=== PATIENT | male | born 1955 | race African-American/Black ===

== ENCOUNTER → 2016-06-16 | Outpatient (CLI) | payer OTHER ==
[2016-01-11 11:07] VITALS: BP 125/65
[~2016-06-16] MED LIST: ALLO300T PO; AMLO10TA2 PO; AMLO5TAB2 PO; AMOX1TAB61 PO; ATOR20TA58 PO; BYSTOLIC10 MG PO; ERTA1VIA IJ; LOSA1TAB17 PO; MELO-150 PO; MULT-208 PO; PHEN37.53 PO
== END | disposition home or self-care (01) ==
LOC: LAB 14:07
PROVIDERS: ATTEND Urology
DX: C61 Malignant neoplasm of prostate (principal)
CPT/HCPCS: 36415; 84153; G0103

== ENCOUNTER → 2016-08-04 | Outpatient (CLI) | payer OTHER ==
[2016-01-11 11:07] VITALS: BP 125/65
[~2016-08-04] MED LIST changes: +GADOBUTROL 7.5 MMOL/7.5 ML VIAL IV ONE
--- NOTE | 2016-08-04 10:34 | KCIC ---
PROCEDURE Pelvis MRI with and without contrast. HISTORY Prostate cancer status post prostatectomy. TECHNIQUE Multiplanar and multi sequence magnetic resonance imaging of the pelvis was performed prior to and following the intravenous administration of 14 cc Gadavist intravenous contrast. COMPARISON CT dated 03/21/2016 and bone scan dated 03/24/2016. FINDINGS The exam is limited due to metallic artifact from lower lumbar spinal fusion instrumentation. The lumbar spine is not formally assessed on this exam. However, there is visualization of transpedicular screws and interbody fusion devices with laminectomy decompression at L4 through S1. There is suspected grade 1 anterolisthesis of L5 on S1. The prostate is surgically absent, with associated susceptibility effect within the prostatectomy bed. No recurrent mass is seen. There is a 2.7 cm T2 hyperintense defect within the right iliac bone, likely due to a bone graft harvest site. There is minimal osteoarthritis involving both hips. The visualized lower abdominal and pelvic visceral and vascular structures are unremarkable. There is slight increased fat within the right inguinal canal without a significant hernia. There is a 1.8 cm fat signal lesion within the right gluteus muscle, likely a small lipoma. There are prominent inguinal lymph nodes, the largest of which is seen on the right measuring 4.0 cm in long axis. The largest inguinal lymph nodes demonstrate cortical thickening without fatty bob. IMPRESSION 1. Findings consistent with prostatectomy. No recurrent lesion is seen within the prostatectomy bed. However, the exam is significantly limited due to metallic artifact from lower lumbar spinal fusion instrumentation. 2. Enlarged right greater than left inguinal lymph nodes with thickened cortices and absent fatty bob, the largest of which measures 4.0 cm in long axis within the right inguinal region. These are stable to minimally increased compared to the prior CT dated 01/20/2016. These may be reactive in etiology. However, a neoplastic etiology is not completely excluded. 3. Lower lumbar spinal fusion instrumentation and degenerative change, incompletely evaluated on the current exam. 4. Small defect within the right iliac bone likely due to a bone graft harvest site. There is no convincing evidence of osseous metastatic disease. Electronically signed by: Leatha Suarez (Aug 04, 2016 10:33:08)
== END | disposition home or self-care (01) ==
LOC: KCIC MRI 08:25
PROVIDERS: ATTEND Physician Assistant
DX: C61 Malignant neoplasm of prostate (principal)
CPT/HCPCS: 72197; A9585

== ENCOUNTER → 2016-10-19 | Outpatient (CLI) | payer OTHER ==
[2016-01-11 11:07] VITALS: BP 125/65
[~2016-10-19] MED LIST changes: -GADOBUTROL 7.5 MMOL/7.5 ML VIAL IV ONE; -MELO-150 PO; +MELO15TA23 PO
== END | disposition home or self-care (01) ==
LOC: LAB 09:48
PROVIDERS: ATTEND Urology
DX: Z12.5 Encounter for screening for malignant neoplasm of prostate (principal); C61 Malignant neoplasm of prostate
CPT/HCPCS: 36415; G0103

== ENCOUNTER 2016-10-24 11:55 | Emergency (ER) | payer OTHER ==
[~2016-10-24] VITALS: Ht 182.9 cm; Wt 150.6 kg
[2016-10-24] MEDS ORDERED: IV NORMAL SALINE 1000ML BAG 1,000 ML IV SCH (12:18)
[2016-10-24] MEDS ORDERED: 0.9 % SODIUM CHLORIDE 10 ML DISP.SYRIN. IV PRN (12:30)
[2016-10-24] MEDS ORDERED: ASPIRIN CHEWABLE 81 MG TABLET. PO ONE (12:30)
--- NOTE | 2016-10-24 12:31 | PHYS DOC ---
Past Medical History Past Medical History: Cancer (neck cancer), Hypertension Additional Past Medical Histor: prostate cancer Past Surgical History: Other Additional Past Surgical Histo: R knee scope lumbar spinal fusion, multiple arthroscopic knee surgeries, ri Alcohol Use: Occasionally Drug Use: None Adult General Chief Complaint Chief Complaint: CHEST PAIN HPI HPI Patient is a pleasant 61-year-old male with a history of prostate cancer in the sixth week of his radiation therapy out of 8 weeks who presents with progressive shortness of breath, intermittent chest pain and for full edema that has been getting progressively worse over the last 7-10 days. Patient admits that he's had a transition between physicians and taken off all his medications secondary to insurance changes. Since that time he's put on a great deal of weight, peripheral edema, with associated increased shortness of breath with exertion. That is becoming more frequent. The chest pain she described over the left chest specifically over the left chest wall described as palpitations with pressure. They last anywhere from 3-5 minutes they do not radiate to his neck back shoulder. He has noted mild dizziness with his symptoms. He denies any nausea, vomiting, URI symptoms, cough, risks, chills, decreased urinary output, recent travel outside the country, or recent anabiotic use. Patient has never had these symptoms before the last 2 weeks. He describes some distention of his abdomen as well as peripheral edema in his lower and upper extremities. He notes that this all began after the cessation of his medications. Differential diagnosis for chest pain: Pericarditis, myocarditis, endocarditis, pneumothorax, pneumonia, aortic dissection, esophageal spasm, esophagitis, peptic ulcer disease, acute coronary syndrome, mediastinitis, Boerhaave syndrome , musculoskeletal chest wall pain, costochondritis, intercostal strain, rib fracture, pulmonary contusion, pneumonitis, pleural effusion, pericardial effusion, pericardial tamponode, and pleurisy. Was considered upon arrival My differential diagnosis for peripheral edema included but not limited to the following. Renal sodium retention, nephrotic syndrome, idiopathic edema secondary to volume to patient, drug-induced edema concerning vasodilators, NSAIDs, venous insufficiency or thromboembolism, pitting edema from lymphatic obstruction or hypothyroidism, ascites associated with abdominal distention, central venous pressure increases secondary to cirrhosis, congestive heart failure, or pericardial heart disease. Review of Systems Review of Systems Constitutional: Denies fever or chills [] Eyes: Denies change in visual acuity, redness, or eye pain [] HENT: Denies nasal congestion or sore throat [] Respiratory: Denies cough or is patient did complain of shortness of breath with exertion. Cardiovascular: No additional information not addressed in HPI [] GI: Denies abdominal pain, nausea, vomiting, bloody stools or diarrhea [] : Denies dysuria or hematuria [] Musculoskeletal: Denies back pain or joint pain [] Integument: Denies rash or skin lesions [] Neurologic: Denies headache, focal weakness or sensory changes he describes generalized weakness. Endocrine: Denies polyuria or polydipsia [] Current Medications Current Medications Current Medications Medications (Trade) Dose Ordered Sig/Dominic Start Time Stop Time Status Last Admin Dose Admin Aspirin (Children'S Aspirin) 324 mg 1X ONCE 10/24/16 12:30 10/24/16 12:31 DC 10/24/16 12:45 324 MG Info (Do NOT chart on this entry -- for MONITORING) 1 each PRN DAILY PRN 10/24/16 13:45 10/26/16 13:44 Iohexol (Omnipaque 300 Mg/ml) 75 ml 1X ONCE 10/24/16 13:30 10/24/16 13:31 DC 10/24/16 13:59 75 ML Sodium Chloride (Normal Saline Flush) 10 ml QSHIFT PRN 10/24/16 12:30 10/24/16 12:45 10 ML Allergies Allergies Allergies Coded Allergies Type Severity Reaction Last Updated Verified morphine Adverse Reaction Intermediate HALLUCINATIONS 01/06/16 Yes Physical Exam Physical Exam Constitutional: Well developed, well nourished, no acute distress, patient is fairly obese with some edema noted periorbitally HENT: Normocephalic, atraumatic, bilateral external ears normal, oropharynx moist, no oral exudates, nose normal. [] Eyes: PERRLA, EOMI, conjunctiva normal, no discharge. [] Neck: Normal range of motion, no tenderness, supple, no stridor. [] Cardiovascular:Heart rate regular rhythm, no murmur [] Lungs & Thorax: Bilateral breath sounds clear to auscultation [] she does have chest wall pain is mildly reproducible on exam of the upper left chest. There is no obvious crepitus or change in breath sounds Abdomen: Bowel sounds normal, soft, no tenderness, no masses, no pulsatile masses. His abdomen is distended but nontympanitic. Skin: Warm, dry, no erythema, no rash. [] Back: No tenderness, no CVA tenderness. [] Extremities: No tenderness, no cyanosis, no clubbing, ROM intact, or significant pitting edema noted in the lower extremity's up to the midthigh. Neurologic: Alert and oriented X 3, normal motor function, normal sensory function, no focal deficits noted. [] Psychologic: Affect normal, judgement normal, mood normal. [] Current Patient Data Vital Signs Vital Signs Date Time Temp Pulse Resp B/P (MAP) Pulse Ox O2 Delivery O2 Flow Rate FiO2 10/24/16 12:30 98.5 80 16 155/92 (113) 96 Room Air 98.5 Lab Values Laboratory Tests Test 10/24/16 12:30 White Blood Count 6.5 x10^3/uL (4.0-11.0) Red Blood Count 3.69 x10^6/uL (4.30-5.70) L Hemoglobin 12.4 g/dL (13.0-17.5) L Hematocrit 36.4 % (39.0-53.0) L Mean Corpuscular Volume 99 fL (79-100) Mean Corpuscular Hemoglobin 34 pg (25-35) Mean Corpuscular Hemoglobin Concent 34 g/dL (31-37) Red Cell Distribution Width 15.2 % (11.5-14.5) H Platelet Count 224 x10^3/uL (140-400) Neutrophils (%) (Auto) 68 % (31-73) Lymphocytes (%) (Auto) 19 % (24-48) L Monocytes (%) (Auto) 10 % (0-9) H Eosinophils (%) (Auto) 2 % (0-3) Basophils (%) (Auto) 1 % (0-3) Neutrophils # (Auto) 4.4 x10^3uL (1.8-7.7) Lymphocytes # (Auto) 1.2 x10^3/uL (1.0-4.8) Monocytes # (Auto) 0.7 x10^3/uL (0.0-1.1) Eosinophils # (Auto) 0.1 x10^3/uL (0.0-0.7) Basophils # (Auto) 0.1 x10^3/uL (0.0-0.2) D-Dimer (Bruna) 1.18 ug/mlFEU (0.00-0.50) H Sodium Level 141 mmol/L (136-145) Potassium Level 3.9 mmol/L (3.5-5.1) Chloride Level 105 mmol/L (98-107) Carbon Dioxide Level 27 mmol/L (21-32) Anion Gap 9 (6-14) Blood Urea Nitrogen 15 mg/dL (8-26) Creatinine 1.1 mg/dL (0.7-1.3) Estimated GFR (Cockcroft-Gault) 82.9 Glucose Level 130 mg/dL (70-99) H Calcium Level 8.7 mg/dL (8.5-10.1) Magnesium Level 1.7 mg/dL (1.8-2.4) L Total Bilirubin 0.4 mg/dL (0.2-1.0) Direct Bilirubin 0.1 mg/dL (0.0-0.2) Aspartate Amino Transferase (AST) 20 U/L (15-37) Alanine Aminotransferase (ALT) 33 U/L (16-63) Alkaline Phosphatase 91 U/L (46-116) Creatine Kinase 287 U/L (39-308) Creatine Kinase MB (Mass) 3.5 ng/mL (0.0-3.6) Creatine Kinase MB Relative Index 1.2 % (0-4) Troponin I Quantitative < 0.017 ng/mL (0.000-0.055) HS-Vqx-Z-Type Natriuretic Peptide 153 pg/mL (0-124) H Total Protein 6.4 g/dL (6.4-8.2) Albumin 3.5 g/dL (3.4-5.0) Lipase 198 U/L (73-393) Thyroid Stimulating Hormone (TSH) 0.981 uIU/mL (0.358-3.74) Laboratory Tests 10/24/16 12:30 Laboratory Tests 10/24/16 12:30 EKG EKG [] EKG timed 12:02 PM 10/24/[address] Haro demonstrates heart rate of 83 normal sinus rhythm with a normal NC interval of 154 QRS normal 88 QTC normal at [address] segment or T-wave changes consistent with acute cardiac ischemia. Patient has a nonpathologic Q-wave in lead 3 Radiology/Procedures Radiology/Procedures [] IMAGING REPORT Signed PATIENT: MIO CAMPOVERDE ACCOUNT: [id number] : 1955 LOCATION: ER AGE: 61 SEX: M EXAM STATUS: REG ER ORD. PHYSICIAN: MAXIM HARO MD REASON: chest pain,18 PROCEDURE: PORTABLE CHEST 1V Indication chest pain. A single view of the chest was obtained and is compared to an examination 01/24/2010. The heart and pulmonary vessels appear normal. The lungs are clear. No acute parenchymal infiltrate is seen. Significant pleural fluid is not present. There is no pneumothorax. Bony structures appear grossly intact. IMPRESSION: No acute or focal process is seen in the chest DICTATED and SIGNED BY: USHA HARRIS MD DATE: 10/24/16 1314 CC: MAXIM HARO MD; GERARDO KINSEY [address] [address] IMAGING REPORT Signed PATIENT: MIO CAMPOVERDE ACCOUNT: [id number] : 1955 LOCATION: ER AGE: 61 SEX: M EXAM STATUS: REG ER ORD. PHYSICIAN: MAXIM HARO MD REASON: PE protocol, intermittent chest pain x 1 week PROCEDURE: CT ANGIOGRAPHY CHEST INDICATION: Chest pain COMPARISON: 01/23/2010 TECHNIQUE: Axial CT images obtained through the chest. Intravenous contrast was utilized and three-dimensional images were processed per angiogram protocol. FINDINGS: No evidence of pneumothorax. Questionable small lesion at anterior aspect of left kidney partially visualized. Thoracic aorta is not aneurysmal. A descending thoracic aorta partially obscured by motion. Scattered mildly prominent lymph nodes within the mediastinum. Degenerative changes of the spine with osteophyte formation. No central pulmonary embolus IMPRESSION: 1. No central pulmonary embolus or definite evidence of pneumonia. 2. Questionable lesion at the anterior aspect of the left kidney partially seen. This could be artifactual in nature but nonemergent focused ultrasound could better evaluate PQRS Compliance Statement: One or more of the following individualized dose reduction techniques were utilized for this examination: 1. Automated exposure control 2. Adjustment of the mA and/or kV according to patient size 3. Use of iterative reconstruction technique DICTATED and SIGNED BY: NELSON KRUGER MD DATE: 10/24/16 2112 CC: MAXIM HARO MD; GERARDO KINSEY ~ Course & Med Decision Making Course & Med Decision Making Pertinent Labs and Imaging studies reviewed. (See chart for details) I reviewed patient's nursing notes, vital signs and history and physical and I need to dilate the origin of this patient's shortness of breath as well as his peripheral edema. He over appropriate cardiac and renal workup. Patient tells me that their symptoms given during CC are improved. We reviewed labs and radiology reports with patient and any family at bedside. At this point patient has elevated d-dimer and require a CT angios the chest to rule out PE. 2 PM Patient tells me that their symptoms given during CC are improved. We reviewed labs and radiology reports with patient and any family at bedside. CT scan of the chest returned at 2:45 PM demonstrates no PE. There is a questionable lesion on the adrenal gland and will need to be followed up and may also be an artifact of this CAT scan. His troponin is negative, his BNP is negative, his CMP is within normal limits. Patient has no evidence of renal failure My differential diagnosis for peripheral edema included but not limited to the following. Renal sodium retention, nephrotic syndrome, idiopathic edema secondary to volume to patient, drug-induced edema concerning vasodilators, NSAIDs, venous insufficiency or thromboembolism, pitting edema from lymphatic obstruction or hypothyroidism, ascites associated with abdominal distention, central venous pressure increases secondary to cirrhosis, congestive heart failure, or pericardial heart disease. Was considered upon arrival and there is no evidence of these events with the exception of possibly medication reaction. Given the fact that this patient is presently on Lasix or another diuretic and he is not on his medications may be concerning to his increased peripheral edema. 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 Dragon Disclaimer Dragon Disclaimer This electronic medical record was generated, in whole or in part, using a voice recognition dictation system. Departure Departure Impression: Primary Impression: Dyspnea Additional Impressions: Peripheral edema Medication side effects Disposition: HOME, SELF-CARE Condition: IMPROVED Referrals: GERARDO KINSEY (PCP) Patient Instructions: Peripheral Edema, Shortness of Breath Additional Instructions: There is no evidence of heart injury today but this does not mean there is no heart disease that could possibly cause damage in the future. I would advise a follow-up your primary care doctor for cardiology for continued management of your blood pressure issues and repeat in the stating your medications to treat your symptoms. Please return for any new or increasing symptoms or given any question concerns. Problem Qualifiers MAXIM HARO MD Oct 24, 2016 12:31
--- NOTE | 2016-10-24 12:32 | EKG ---
[facility] [address] [place] [address] Test Date: 2016-10-24 Test Time: 12:02:20 Pat Name: MIO CAMPOVERDE Department: Room: Gender: M Pharmacists: : 1955 Requested By: MAXIM HARO Order Number: [id number] Reading MD: Measurements Intervals [place] Rate: 83 P: 47 TX: 154 QRS: 19 QRSD: 88 T: 37 QT: 368 QTc: 438 Interpretive Statements SINUS RHYTHM QRS(T) CONTOUR ABNORMALITY CONSIDER ANTEROLATERAL MYOCARDIAL DAMAGE RI6.01 Unconfirmed report No previous ECG available for comparison
[2016-10-24 12:59] LABS: BASO # 0.1 x10^3/uL (0.0-0.2); BASO % 1 % (0-3); EOS % 2 % (0-3); HEMATOCRIT 36.4 % (39.0-53.0); HEMOGLOBIN 12.4 g/dL (13.0-17.5); LYMPH # 1.2 x10^3/uL (1.0-4.8); LYMPH % 19 % (24-48); MEAN CORPUSCULAR HEMOGLOBIN 34 pg (25-35); MEAN CORPUSCULAR HGB CONC 34 g/dL (31-37); MEAN CORPUSCULAR VOLUME 99 fL (79-100); MONO % 10 % (0-9); NEUT % 68 % (31-73); PLATELET COUNT 224 x10^3/uL (140-400); RED BLOOD COUNT 3.69 x10^6/uL (4.30-5.70); RED CELL DISTRIBUTION WIDTH 15.2 % (11.5-14.5); WHITE BLOOD COUNT 6.5 x10^3/uL (4.0-11.0)
[2016-10-24 13:07] LABS: CALCIUM 8.7 mg/dL (8.5-10.1); CREATININE 1.1 mg/dL (0.7-1.3); GFR 82.9; POTASSIUM 3.9 mmol/L (3.5-5.1)
[2016-10-24 13:13] LABS: ALBUMIN 3.5 g/dL (3.4-5.0); DIRECT BILIRUBIN 0.1 mg/dL (0.0-0.2); MAGNESIUM 1.7 mg/dL (1.8-2.4); TOTAL BILIRUBIN 0.4 mg/dL (0.2-1.0); TOTAL PROTEIN 6.4 g/dL (6.4-8.2)
--- NOTE | 2016-10-24 13:18 | RAD ---
Indication chest pain. A single view of the chest was obtained and is compared to an examination 01/24/2010. The heart and pulmonary vessels appear normal. The lungs are clear. No acute parenchymal infiltrate is seen. Significant pleural fluid is not present. There is no pneumothorax. Bony structures appear grossly intact. IMPRESSION: No acute or focal process is seen in the chest
[2016-10-24 13:20] LABS: CKMB MASS 3.5 ng/mL (0.0-3.6)
[2016-10-24] MEDS ORDERED: IOHEXOL 300 MG/ML 75 ML VIAL IV ONE (13:30)
[2016-10-24] MEDS ORDERED: CONTRAST GIVEN MC PRN (13:45)
--- NOTE | 2016-10-24 14:30 | RAD ---
INDICATION: Chest pain COMPARISON: 01/23/2010 TECHNIQUE: Axial CT images obtained through the chest. Intravenous contrast was utilized and three-dimensional images were processed per angiogram protocol. FINDINGS: No evidence of pneumothorax. Questionable small lesion at anterior aspect of left kidney partially visualized. Thoracic aorta is not aneurysmal. A descending thoracic aorta partially obscured by motion. Scattered mildly prominent lymph nodes within the mediastinum. Degenerative changes of the spine with osteophyte formation. No central pulmonary embolus IMPRESSION: 1. No central pulmonary embolus or definite evidence of pneumonia. 2. Questionable lesion at the anterior aspect of the left kidney partially seen. This could be artifactual in nature but nonemergent focused ultrasound could better evaluate PQRS Compliance Statement: One or more of the following individualized dose reduction techniques were utilized for this examination: 1. Automated exposure control 2. Adjustment of the mA and/or kV according to patient size 3. Use of iterative reconstruction technique
[2016-10-24 15:14] VITALS: BP 140/67
== END 2016-10-24 15:30 | disposition home or self-care (01) ==
LOC: ER 11:55
DX: T50.905A Adverse effect of unspecified drugs, medicaments and biological substances, initial encounter (principal); R60.9 Edema, unspecified; I10 Essential (primary) hypertension; Z88.5 Allergy status to narcotic agent; Z85.46 Personal history of malignant neoplasm of prostate; Y92.89 Other specified places as the place of occurrence of the external cause
CPT/HCPCS: 36415; 71010; 71275; 80048; 80076; 82553; 83690; 83735; 83880; 84443; 84484; 85027; 85379; 93005; 96360; 99285; J7030; Q9967

== ENCOUNTER 2016-11-16 11:32 | Emergency (ER) | payer OTHER ==
--- NOTE | 2016-11-16 12:13 | EKG ---
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
[2016-11-16 12:18] LABS: BASO # 0.1 x10^3/uL (0.0-0.2); BASO % 1 % (0-3); EOS % 2 % (0-3); HEMATOCRIT 37.7 % (39.0-53.0); HEMOGLOBIN 12.9 g/dL (13.0-17.5); LYMPH # 1.2 x10^3/uL (1.0-4.8); LYMPH % 12 % (24-48); MEAN CORPUSCULAR HEMOGLOBIN 34 pg (25-35); MEAN CORPUSCULAR HGB CONC 34 g/dL (31-37); MEAN CORPUSCULAR VOLUME 100 fL (79-100); MONO % 11 % (0-9); NEUT % 75 % (31-73); PLATELET COUNT 279 x10^3/uL (140-400); RED BLOOD COUNT 3.79 x10^6/uL (4.30-5.70); RED CELL DISTRIBUTION WIDTH 15.2 % (11.5-14.5); WHITE BLOOD COUNT 9.7 x10^3/uL (4.0-11.0)
[2016-11-16 12:26] LABS: CALCIUM 9.1 mg/dL (8.5-10.1); CREATININE 1.1 mg/dL (0.7-1.3); GFR 82.9
[2016-11-16 12:33] LABS: ALBUMIN 3.8 g/dL (3.4-5.0); TOTAL BILIRUBIN 0.3 mg/dL (0.2-1.0); TOTAL PROTEIN 7.6 g/dL (6.4-8.2)
[2016-11-16 12:58] LABS: BILIRUBIN,URINE NEGATIVE (NEG); GLUCOSE,URINE NEGATIVE (NEG); NITRITE,URINE NEGATIVE (NEG); PH,URINE 5.5; PROTEIN,URINE NEGATIVE (NEG-TRACE); UROBILINOGEN,URINE 0.2 mg/dL (0.2 mg/dL)
[2016-11-16 13:13] LABS: BACTERIA,URINE FEW /HPF (0-FEW); RBC,URINE OCC /HPF (0-2); SQUAMOUS EPITHELIAL CELL,UR FEW /LPF
[2016-11-16 13:52] VITALS: BP 138/80
[2016-11-16] MEDS ORDERED: IOHEXOL 300 MG/ML 75 ML VIAL IV ONE (14:15)
[2016-11-16] MEDS ORDERED: CONTRAST GIVEN MC PRN (14:15)
--- NOTE | 2016-11-16 14:37 | PHYS DOC ---
Past Medical History Past Medical History: Cancer, Hypertension Additional Past Medical Histor: prostate cancer,REMOVED PROSTATE Past Surgical History: Other Additional Past Surgical Histo: R knee scope lumbar spinal fusion, multiple arthroscopic knee surgeries, ri Alcohol Use: Occasionally Drug Use: None Adult General Chief Complaint Chief Complaint: ABDOMINAL PAIN HPI HPI Patient is a 61 year old -[place] male with stage III prostate cancer presents with a left or quadrant pain described as sharp and cramping lasting 2 minutes. Patient has multiple episodes daily. Pain is moderate to severe when episodes occur. Patient currently denies pain or any other symptoms. No fever, chills, cough, chest pain, nausea, vomiting, flank pain, constipation or bloody stools. Patient most recently completed radiation therapy for treatment of prostate cancer this past week. He had radical prostatectomy May 2016. Review of Systems Review of Systems ROS as per HPI. Current Medications Current Medications Current Medications Medications (Trade) Dose Ordered Sig/Dominic Start Time Stop Time Status Last Admin Dose Admin Info (Do NOT chart on this entry -- for MONITORING) 1 each PRN DAILY PRN 11/16/16 14:15 11/18/16 14:14 Iohexol (Omnipaque 300 Mg/ml) 75 ml 1X ONCE 11/16/16 14:15 11/16/16 14:16 DC 11/16/16 14:35 75 ML Allergies Allergies Allergies Coded Allergies Type Severity Reaction Last Updated Verified morphine Adverse Reaction Intermediate HALLUCINATIONS 01/06/16 Yes Physical Exam Physical Exam Constitutional: Well developed, well nourished, no acute distress, non-toxic appearance. [] HENT: Normocephalic, atraumatic, bilateral external ears normal, oropharynx moist, no oral exudates, nose normal. [] Eyes: PERRLA, EOMI, conjunctiva normal, no discharge. [] Neck: Normal range of motion, no tenderness, supple, no stridor. [] Cardiovascular:Heart rate regular rhythm, no murmur [] Lungs & Thorax: Bilateral breath sounds clear to auscultation [] Abdomen: Bowel sounds normal, soft, no tenderness, no masses, obesity compromising exam.. [] Skin: Warm, dry, no erythema, no rash. [] Back: No tenderness, no CVA tenderness. [] Extremities: No tenderness, no cyanosis, no clubbing, ROM intact, no edema. [] Neurologic: Alert and oriented X 3, normal motor function, normal sensory function, no focal deficits noted. [] Psychologic: Affect normal, judgement normal, mood normal. [] Current Patient Data Vital Signs Vital Signs Date Time Temp Pulse Resp B/P (MAP) Pulse Ox O2 Delivery O2 Flow Rate FiO2 11/16/16 13:52 80 138/80 (99) 98 Room Air 11/16/16 11:51 98.2 20 98.2 Lab Values Laboratory Tests Test 11/16/16 12:00 11/16/16 12:50 White Blood Count 9.7 x10^3/uL (4.0-11.0) Red Blood Count 3.79 x10^6/uL (4.30-5.70) L Hemoglobin 12.9 g/dL (13.0-17.5) L Hematocrit 37.7 % (39.0-53.0) L Mean Corpuscular Volume 100 fL (79-100) Mean Corpuscular Hemoglobin 34 pg (25-35) Mean Corpuscular Hemoglobin Concent 34 g/dL (31-37) Red Cell Distribution Width 15.2 % (11.5-14.5) H Platelet Count 279 x10^3/uL (140-400) Neutrophils (%) (Auto) 75 % (31-73) H Lymphocytes (%) (Auto) 12 % (24-48) L Monocytes (%) (Auto) 11 % (0-9) H Eosinophils (%) (Auto) 2 % (0-3) Basophils (%) (Auto) 1 % (0-3) Neutrophils # (Auto) 7.3 x10^3uL (1.8-7.7) Lymphocytes # (Auto) 1.2 x10^3/uL (1.0-4.8) Monocytes # (Auto) 1.1 x10^3/uL (0.0-1.1) Eosinophils # (Auto) 0.1 x10^3/uL (0.0-0.7) Basophils # (Auto) 0.1 x10^3/uL (0.0-0.2) Sodium Level 144 mmol/L (136-145) Potassium Level 4.0 mmol/L (3.5-5.1) Chloride Level 106 mmol/L (98-107) Carbon Dioxide Level 29 mmol/L (21-32) Anion Gap 9 (6-14) Blood Urea Nitrogen 17 mg/dL (8-26) Creatinine 1.1 mg/dL (0.7-1.3) Estimated GFR (Cockcroft-Gault) 82.9 BUN/Creatinine Ratio 15 (6-20) Glucose Level 102 mg/dL (70-99) H Calcium Level 9.1 mg/dL (8.5-10.1) Total Bilirubin 0.3 mg/dL (0.2-1.0) Aspartate Amino Transferase (AST) 18 U/L (15-37) Alanine Aminotransferase (ALT) 32 U/L (16-63) Alkaline Phosphatase 102 U/L (46-116) Troponin I Quantitative < 0.017 ng/mL (0.000-0.055) Total Protein 7.6 g/dL (6.4-8.2) Albumin 3.8 g/dL (3.4-5.0) Albumin/Globulin Ratio 1.0 (1.0-1.7) Lipase 99 U/L (73-393) Urine Collection Type Unknown Urine Color Yellow Urine Clarity Clear Urine pH 5.5 Urine Specific [place] 1.025 Urine Protein Negative mg/dL (NEG-TRACE) Urine Glucose (UA) Negative mg/dL (NEG) Urine Ketones (Stick) Negative mg/dL (NEG) Urine Blood Negative (NEG) Urine Nitrite Negative (NEG) Urine Bilirubin Negative (NEG) Urine Urobilinogen Dipstick 0.2 mg/dL (0.2 mg/dL) Urine Leukocyte Esterase Small (NEG) Urine RBC Occ /HPF (0-2) Urine WBC 5-10 /HPF (0-4) Urine Squamous Epithelial Cells Few /LPF Urine Bacteria Few /HPF (0-FEW) Urine Mucus Mod /LPF Laboratory Tests 11/16/16 12:00 Laboratory Tests 11/16/16 12:00 EKG EKG [EKG sinus rhythm, rate 83, no acute ST-T wave changes. QTC 429.] Radiology/Procedures Radiology/Procedures [CT abdomen pelvis:No acute intra-abdominal process per radiology report. Course & Med Decision Making Course & Med Decision Making Pertinent Labs and Imaging studies reviewed. (See chart for details) [intermittent abdominal pain with non-diagnostic ED evaluation. We'll treat supportively with PCP follow-up. Return precautions reviewed.] Dragon Disclaimer Dragon Disclaimer This electronic medical record was generated, in whole or in part, using a voice recognition dictation system. Departure Departure Disposition: HOME, SELF-CARE Referrals: GERARDO KINSEY (PCP) KRISTYN MELCHOR DO Nov 16, 2016 14:37
--- NOTE | 2016-11-16 15:15 | RAD ---
CT of the abdomen and pelvis 11/16/2016 Indication: Left-sided abdominal pain Comparison study: Abdominal CT January 20, 2016. Technique: Multidetector CT imaging of the abdomen and pelvis was obtained following the administration of IV contrast only. Oral contrast was not given. Findings: Partially visualized lung bases demonstrate no acute abnormality. Liver and gallbladder are unremarkable. Adrenal glands are unremarkable. Spleen is atrophic in appearance but similar to comparison study. Pancreas is grossly unremarkable. The bilateral kidneys are grossly unremarkable. There is no evidence of bowel obstruction. No evidence of acute inflammatory change involving the bowel is identified. Evaluation is somewhat limited given lack of enteric contrast. The appendix is visualized and unremarkable. No significant free fluid or free air seen in the abdomen or pelvis. Post surgical changes to the lumbar spine are noted. An acute osseous abnormality is not seen. There is a round, centrally lucent and peripherally sclerotic lesion in the right ilium is unchanged from prior study from January 2016, may be postoperative in nature. Postsurgical changes consistent with prior prostatectomy noted. Impression: No evidence of acute intra-abdominal abnormality or acute change from prior exam is identified.
== END 2016-11-16 15:56 | disposition home or self-care (01) ==
LOC: ER 11:32
DX: R10.32 Left lower quadrant pain (principal); R10.12 Left upper quadrant pain; I10 Essential (primary) hypertension; Z90.79 Acquired absence of other genital organ(s); Z88.5 Allergy status to narcotic agent
CPT/HCPCS: 36415; 74177; 80053; 81001; 83690; 84484; 85027; 87086; 93005; 99285; Q9967

== ENCOUNTER 2017-01-31 19:07 | Emergency (ER) | payer OTHER ==
[~2017-01-31] VITALS: Ht 175.3 cm; Wt 136.1 kg
[~2017-01-31 19:07] MED LIST changes: -LOSA1TAB17 PO; +LOSA1TAB22 PO
[2017-01-31 20:15] LABS: BILIRUBIN,URINE SMALL (NEG); GLUCOSE,URINE NEGATIVE (NEG); NITRITE,URINE NEGATIVE (NEG); PROTEIN,URINE NEGATIVE (NEG-TRACE)
[2017-01-31 20:21] LABS: BACTERIA,URINE FEW /HPF (0-FEW); RBC,URINE OCC /HPF (0-2); SQUAMOUS EPITHELIAL CELL,UR FEW /LPF
[2017-01-31 21:39] VITALS: BP 140/86
--- NOTE | 2017-01-31 21:40 | RAD ---
Scrotal ultrasound 01/31/2017 CLINICAL HISTORY: Abnormal sensation in left testes for 2 weeks. TECHNIQUE: Using a combination of real time ultrasound imaging and color-flow and pulse doppler imaging techniques, duplex evaluation of the scrotal sac and its contents was performed. Multiple images were obtained. FINDINGS: Both testicles are within normal limits in size. The right testicle measures 4.0 x 2.3 x 1.8 cm in longitudinal, transverse, and AP dimensions. The left testicle measures 3.2 x 2.5 x 2.1 cm in size. Both testicles are slightly heterogeneous. No focal abnormality of either testicle is seen. Normal color flow and pulse Doppler imaging to both testicles is seen. Both epididymal heads are within normal limits in size. A 4 mm cyst is seen involving the right epididymal head. No focal abnormality of the left epididymal head is seen. There is a small left hydrocele. No varicocele is seen. IMPRESSION: 1. No focal abnormality of either testicle is seen. 2. 4 mm cyst is seen involving the right epididymal head. 3. Small left hydrocele. Electronically signed by: Honorio Pacheco MD (01/31/2017 9:37 PM) [facility]
--- NOTE | 2017-01-31 21:41 | PHYS DOC ---
Past Medical History Past Medical History: Cancer, High Cholesterol, Hypertension Additional Past Medical Histor: PROSTATE CA, PROSTATE REMOVED Past Surgical History: Other Additional Past Surgical Histo: R knee scope, lumbar spinal fusion, multiple arthroscopic knee surgeries Alcohol Use: Occasionally Drug Use: None Adult General Chief Complaint Chief Complaint: GROIN PAIN HPI HPI 61-year-old -Luxembourger male with a history of prostate cancer treated by prostatectomy with a history of full radiation therapy protocol now presents to the emergency department complaining of scrotal tingling. Patient has normal bowel and bladder habits. He had some mild ache in his left testicle today but the discomfort was very minor. No fevers chills sweats or shaking chills. No scrotal swelling or skin changes. He states his penis his baseline. Patient has no perennial pain Review of Systems Review of Systems Constitutional: Denies fever or chills [] Eyes: Denies change in visual acuity, redness, or eye pain [] HENT: Denies nasal congestion or sore throat [] Respiratory: Denies cough or shortness of breath [] Cardiovascular: No additional information not addressed in HPI [] GI: Denies abdominal pain, nausea, vomiting, bloody stools or diarrhea [] : Denies dysuria or hematuria [] Musculoskeletal: Denies back pain or joint pain [] Integument: Denies rash or skin lesions [] Neurologic: Denies headache, focal weakness or sensory changes [] Endocrine: Denies polyuria or polydipsia [] Allergies Allergies Allergies Coded Allergies Type Severity Reaction Last Updated Verified morphine Adverse Reaction Intermediate HALLUCINATIONS 01/06/16 Yes Physical Exam Physical Exam Obese 61-year-old male with a benign exam. External genitalia normal appearing. Bilateral testicles with no focal tenderness or palpable mass. No scrotal swelling or skin changes no edema. Normal penis with no discharge. No inguinal mass or tenderness and no adenopathy. Nontender perineum Constitutional: Well developed, well nourished, no acute distress, non-toxic appearance. [] HENT: Normocephalic, atraumatic, bilateral external ears normal, oropharynx moist, no oral exudates, nose normal. [] Eyes: EOMI, conjunctiva normal, no discharge. [] Neck: Normal range of motion, supple, no stridor. [] Cardiovascular:Heart rate regular rhythm, no murmur [] Lungs & Thorax: Bilateral breath sounds clear to auscultation [] Abdomen: Bowel sounds normal, soft, no tenderness, no masses, no pulsatile masses. [] Skin: Warm, dry, no erythema, no rash. [] Back: No tenderness, no CVA tenderness. [] Extremities: No tenderness, no cyanosis, no clubbing, ROM intact, no edema. [] Neurologic: Alert and oriented X 3, normal motor function, no focal deficits noted. [] Psychologic: Affect normal, judgement normal, mood normal. [] Current Patient Data Vital Signs Vital Signs Date Time Temp Pulse Resp B/P (MAP) Pulse Ox O2 Delivery O2 Flow Rate FiO2 01/31/17 19:38 99.8 96 18 156/81 (106) 96 Room Air 99.8 Lab Values Laboratory Tests Test 01/31/17 20:09 Urine Collection Type Unknown Urine Color Marta Urine Clarity Turbid Urine pH 6.0 Urine Specific [place] 1.025 Urine Protein Negative mg/dL (NEG-TRACE) Urine Glucose (UA) Negative mg/dL (NEG) Urine Ketones (Stick) Negative mg/dL (NEG) Urine Blood Moderate (NEG) Urine Nitrite Negative (NEG) Urine Bilirubin Small (NEG) Urine Urobilinogen Dipstick 4.0 mg/dL (0.2 mg/dL) Urine Leukocyte Esterase Trace (NEG) Urine RBC Occ /HPF (0-2) Urine WBC 5-10 /HPF (0-4) Urine Squamous Epithelial Cells Few /LPF Urine Bacteria Few /HPF (0-FEW) Urine Hyaline Casts Occasional /HPF Urine Mucus Marked /LPF EKG EKG [] Radiology/Procedures Radiology/Procedures [] Course & Med Decision Making Course & Med Decision Making Pertinent Labs and Imaging studies reviewed. (See chart for details) Patient with scrotal paresthesias but a benign exam. Urinalysis negative. Ultrasound pending to rule out less likely possibility of intrascrotal abnormality. If unremarkable anticipate outpatient follow-up with PCP and urology. Patient were to take ibuprofen and Tylenol as needed and follow-up as an outpatient. He has agree with outpatient follow-up and strict return precautions will be given. [] Dragon Disclaimer Dragon Disclaimer This electronic medical record was generated, in whole or in part, using a voice recognition dictation system. Departure Departure Impression: Primary Impression: Paresthesias Additional Impression: Left testicular pain Disposition: 01 HOME, SELF-CARE Condition: STABLE Referrals: MARIO VILLAVICENCIO MD (PCP) Additional Instructions: It is likely that you're scrotal paresthesias, or or tingling of your scrotum, is a result of your prior history of prostatectomy with radiation to the area. It is likely that this has affected the nerves in the area that supply sensation to your scrotal skin. While this might be annoying, it should not be threatening you do not have evidence of urinary tract infection. Ultrasound of your scrotum shows no evidence of emergency which would require immediate intervention. Follow-up with your doctor and your urologist as an outpatient in the next 1-2 days and return immediately for new severe or worsening symptoms Problem Qualifiers SEN COUCH MD Jan 31, 2017 21:41
[2017-01-31] MEDS ORDERED: IBUPROFEN 800 MG TABLET. PO ONE (22:00)
== END 2017-01-31 22:04 | disposition home or self-care (01) ==
LOC: ER 19:07
DX: R20.2 Paresthesia of skin (principal); N50.812 Left testicular pain; E78.00 Pure hypercholesterolemia, unspecified; I10 Essential (primary) hypertension; E66.9 Obesity, unspecified; Z90.79 Acquired absence of other genital organ(s); Z88.5 Allergy status to narcotic agent; Z68.41 Body mass index [BMI] 40.0-44.9, adult
CPT/HCPCS: 76870; 81001; 99285-25

== ENCOUNTER → 2017-08-28 | Outpatient (CLI) | payer OTHER, MEDICARE ==
[2017-08-28 12:29] LABS: ALBUMIN 4.2 g/dL (3.4-5.0); ALBUMIN/GLOBULIN RATIO 1.1 (1.0-1.7); ALK PHOS 92 U/L (46-116); ALT (SGPT) 43 U/L (16-63); ANION GAP 8 (6-14); AST (SGOT) 22 U/L (15-37); BLOOD UREA NITROGEN 18 mg/dL (8-26); BUN/CREATININE RATIO 16 (6-20); CALCIUM 9.5 mg/dL (8.5-10.1); CARBON DIOXIDE 27 mmol/L (21-32); CHLORIDE 106 mmol/L (98-107); CREATININE 1.1 mg/dL (0.7-1.3); GFR 82.9; GLUCOSE 114 mg/dL (70-99); POTASSIUM 4.2 mmol/L (3.5-5.1); SODIUM 141 mmol/L (136-145); TOTAL BILIRUBIN 0.6 mg/dL (0.2-1.0)
[2017-08-29 04:20] LABS: HEMOGLOBIN A1C 5.5 % (4.8-5.6)
== END | disposition home or self-care (01) ==
LOC: LAB 11:45
DX: R73.09 Other abnormal glucose (principal); I10 Essential (primary) hypertension; E78.5 Hyperlipidemia, unspecified; E78.00 Pure hypercholesterolemia, unspecified
CPT/HCPCS: 36415; 80053; 83036

== ENCOUNTER → 2017-10-18 | Outpatient (CLI) | payer MEDICARE, OTHER | END | disposition home or self-care (01) | LOC: PMGWOUND 08:41 | DX: L02.211 Cutaneous abscess of abdominal wall (principal); I10 Essential (primary) hypertension; E78.5 Hyperlipidemia, unspecified; E78.00 Pure hypercholesterolemia, unspecified; E66.01 Morbid (severe) obesity due to excess calories; M19.90 Unspecified osteoarthritis, unspecified site; G47.33 Obstructive sleep apnea (adult) (pediatric); F17.210 Nicotine dependence, cigarettes, uncomplicated; Z85.46 Personal history of malignant neoplasm of prostate | CPT/HCPCS: 97597 ==

== ENCOUNTER → 2017-10-25 | Outpatient (CLI) | payer MEDICARE, OTHER | END | disposition home or self-care (01) | LOC: PMGWOUND 09:03 | DX: L02.211 Cutaneous abscess of abdominal wall (principal); I10 Essential (primary) hypertension; E78.5 Hyperlipidemia, unspecified; E66.01 Morbid (severe) obesity due to excess calories; G47.33 Obstructive sleep apnea (adult) (pediatric); E78.00 Pure hypercholesterolemia, unspecified; M19.90 Unspecified osteoarthritis, unspecified site; F17.210 Nicotine dependence, cigarettes, uncomplicated; Z85.46 Personal history of malignant neoplasm of prostate | CPT/HCPCS: 99213 ==

== ENCOUNTER → 2017-11-01 | Outpatient (CLI) | payer MEDICARE, OTHER | END | disposition home or self-care (01) | LOC: PMGWOUND 08:57 | DX: L02.211 Cutaneous abscess of abdominal wall (principal); I10 Essential (primary) hypertension; E78.5 Hyperlipidemia, unspecified; E66.01 Morbid (severe) obesity due to excess calories; G47.33 Obstructive sleep apnea (adult) (pediatric); E78.00 Pure hypercholesterolemia, unspecified; M19.90 Unspecified osteoarthritis, unspecified site; F17.210 Nicotine dependence, cigarettes, uncomplicated; Z85.46 Personal history of malignant neoplasm of prostate; Z68.42 Body mass index [BMI] 45.0-49.9, adult | CPT/HCPCS: 99213 ==

== ENCOUNTER → 2017-11-16 | Outpatient (CLI) | payer MEDICARE, OTHER | END | disposition home or self-care (01) | LOC: RAD 09:35 | DX: M17.11 Unilateral primary osteoarthritis, right knee (principal); M25.461 Effusion, right knee; M71.21 Synovial cyst of popliteal space [Baker], right knee; M25.761 Osteophyte, right knee; I10 Essential (primary) hypertension; K21.9 Gastro-esophageal reflux disease without esophagitis; E78.5 Hyperlipidemia, unspecified; Z87.891 Personal history of nicotine dependence; Z85.46 Personal history of malignant neoplasm of prostate; Z90.79 Acquired absence of other genital organ(s); Z68.42 Body mass index [BMI] 45.0-49.9, adult | CPT/HCPCS: 73721; 77073 ==

== ENCOUNTER 2017-12-17 10:30 | Inpatient (IN) | payer OTHER, MEDICARE ==
[~2017-12-17] VITALS: Ht 177.8 cm; Wt 143.3 kg
[~2017-12-17 10:30] MED LIST changes: +ACET325T9 PO; -AMLO10TA2 PO; +AMLO10TA6 PO; -AMLO5TAB2 PO; +AMLO5TAB7 PO; +ATEN50TA PO; +METF500T9 PO
[2017-12-31] VITALS (7 sets, daily range): BP systolic 159–190; BP diastolic 78–103
[2017-12-31] MEDS ORDERED: CELECOXIB 100 MG CAPSULE. PO PRN (06:00)
[2017-12-31] MEDS ORDERED: TRANEXAMIC ACID 1,000 MG in IV NS 50ML -- 1ST BAG INJ ONE (06:00)
[2017-12-31] MEDS ORDERED: HYDROcodone/APAP 7.5/325MG 1 TAB TABLET PO PRN ×2 (06:00→09:15)
[2017-12-31] MEDS ORDERED: KETOROLAC 30MG VIAL 30 MG, ROPIVacaine 0.5% PF 60 ML, EPINEPHrine 0.5 MG in IV NORMAL S... INT ART ONE (06:00)
[2017-12-31] MEDS ORDERED: LIDOCAINE 1% PF 2 ML VIAL. ID PRN (07:00)
[2017-12-31] MEDS ORDERED: ONDANSETRON PF 4 MG/2 ML VIAL. IV PRN (07:00)
[2017-12-31] MEDS ORDERED: IV RINGERS,LACTATED 1000ML 1,000 ML IV SCH (07:00)
[2017-12-31] MEDS ORDERED: fentaNYL PF VIAL 100 MCG/2 ML VIAL IV PRN ×4 (07:00→09:15)
[2017-12-31] MEDS ORDERED: PROCHLORPERAZINE 10 MG/2 ML VIAL. IV PRN ×2 (07:00→09:15)
[2017-12-31] MEDS ORDERED: TRANEXAMIC ACID 1,000 MG in IV NS 50ML -- 2ND BAG INJ ONE (08:00)
[2017-12-31] MEDS ORDERED: PROPOFOL 20 ML IV ONE (08:19)
[2017-12-31] MEDS ORDERED: fentaNYL PF VIAL 100 MCG/2 ML VIAL ONE ×3 (08:19→11:20)
[2017-12-31] MEDS ORDERED: 0.9 % SODIUM CHLORIDE 10 ML DISP.SYRIN. IV PRN (09:15)
[2017-12-31] MEDS ORDERED: diphenhydrAMINE 50 MG/ML VIAL IV PRN (09:15)
[2017-12-31] MEDS ORDERED: DEXTROSE 50% 25 GM / 50ML DISP.SYRIN. IV PRN (09:15)
[2017-12-31] MEDS ORDERED: ACETAMINOPHEN 325 MG TABLET. PO PRN (09:15)
[2017-12-31] MEDS ORDERED: METOCLOPRAMIDE HCL 10 MG/2 ML VIAL. IV PRN (09:15)
[2017-12-31] MEDS ORDERED: traMADol 50 MG TABLET PO PRN ×2 (09:15)
[2017-12-31] MEDS ORDERED: PROCHLORPERAZINE 5 MG TABLET. PO PRN (09:15)
[2017-12-31] MEDS ORDERED: ZOLPIDEM 5 MG TABLET. PO PRN (09:15)
[2017-12-31] MEDS ORDERED: oxyCODONE/APAP 5/325 1 TAB TABLET PO PRN (09:15)
[2017-12-31] MEDS: HYDROcodone/APAP 10/325 1 TAB TABLET PO PRN ×2 (09:58→20:42)
[2017-12-31] MEDS ORDERED: ceFAZolin SODIUM 1 GM VIAL ONE (10:20)
[2017-12-31] MEDS ORDERED: DEXAMETHASONE SOD PHOS 20 MG/5 ML VIAL. ONE (10:27)
[2017-12-31] MEDS ORDERED: SEVOFLURANE 61 TO 120 MINUTES. IH ONE (10:27)
[2017-12-31] MEDS ORDERED: ONDANSETRON PF 4 MG/2 ML VIAL. ONE (10:27)
[2017-12-31 10:29] LABS: PROTHROMBIN TIME PATIENT 12.5 SEC (11.7-14.0)
[2017-12-31] MEDS: INSULIN LISPRO 300 UNITS/3 ML INSULN.PEN. SQ SCH ×2 (12:00→16:39)
--- NOTE | 2017-12-31 12:14 | PDOC4 ---
Operative Note Operative Note Date of procedure: 12/31/2017 Surgeon: Tarun Ely Assistant Principal: Maldonado Flannery APRN Preoperative diagnosis: Advanced right knee primary degenerative joint disease Postoperative diagnosis: Same Procedure performed: Right total knee arthroplasty Anesthesia: Gen. Complications: None Blood loss: 150 mL Tourniquet time: 69 minutes Findings: Primary degenerative joint disease, right knee Components inserted: Alfredo and nephew Oxinium size 8 femur, journey size 6 tibial baseplate, 9 mm thick articular insert, 26 mm biconvex patella, Reason for procedure: Patient is a very pleasant male who has seen me several times for progressive bilateral, right greater than left knee pain that is refractory to intra-articular corticosteroids, anti-inflammatories as well as Visco supplementation and was interfering with his activities of daily living. We had a discussion of the risks, benefits, and alternatives to proceeding with the above surgery and she wished to proceed. Description of procedure: Patient was greeted in the preoperative area by myself for the correct extremity was verified and marked. The patient was then brought back to the operating room and transferred gently supine to the operating table and secured the bed with all pressure points padded after having successful induction of a general anesthetic. A padded bump was placed laterally at the patients hip, padded foot rest across the foot of the bed to maintain the leg in 90 passive flexion at the knee. Nonsterile tourniquet taped in place to the operative upper thigh. Examination under anesthesia was then conducted by myself, range of motion 5-130, knee was stable to varus and valgus. After this, the right lower extremity was then prepped and draped in our usual sterile fashion and we conducted our standard preoperative timeout. I then palpated and marked surface anatomy and goldy a line from my anterior midline skin incision. It should be noted part of our prepping and draping did include an Ioban Rolla. The extremity was then exsanguinated with an Esmarch and tourniquet insufflated to 250 mmHg. I then incised skin with a scalpel and used electrocautery to dissect down to the extensor mechanism, identifying the quadriceps tendon, borders of the patella and patellar tendon and tibial tubercle. I then made my standard medial parapatellar arthrotomy performed my medial release with accommodation of electrocautery and Sherman elevator. I then bluntly dissected the fat pad off the posterior patellar tendon and protected this with an Army-Manteno and excised the fat pad. The knee was then flexed, Z retractors were positioned. After this, I excised the cruciates and marked Whitesides line and the epicondylar axis. I then placed my visionary cutting block and made a distal femoral cut, because of his flexion contracture, I repositioned the standard cutting block and pinned into position and the +2 and redid my distal femoral cut at that position as well. I then impacted my 5 in 1 cutting block and secured it with threaded pins. The Z retractors were repositioned to protect condyles and I made my distal femoral cuts. The bony pieces were removed. I took care to check posteriorly for osteophytes. After this, I repositioned my retractors and placed the popliteal retractor as well. I then used the extra medullary tibial cutting guide and pinned this into place and then made my proximal tibial cut. The retractors removed, the leg was brought him to extension and alignment was checked with a drop cathryn, I was happy. I then used a lamina floor installation mechanic and excised the remnants of the menisci, leaving a rim for later identification. After this, the knee and retractors were repositioned and I sized and pinned my baseplate in position followed by drilling and punching for the baseplate fins. I then placed the trial femoral component pinned this into place and then reamed and punched for the cam portion. I then placed my ox for my femoral component. I trialed a 9 mm and 10 mm articular insert, the 10 was a little too tight but the 9 gave range of motion from 0-140 in a knee that was stable to varus and valgus in extension and mid flexion. We then directed our attention to the patella, I sized and reamed for a 23 biconvex patella which had excellent tracking with the button in place. After this, we removed all trial components and thoroughly irrigated all bony surfaces. The cement was mixed, we then cemented in place our tibial component followed by a femoral component and allowed these to polymerize in extension with the trial polyethylene in place. The patellar button was secured and clamped in place with cement as well. After this, I took the knee through range of motion tested stability once the cement had hardened. I was happy with the 9, range of motion 0-140 knee was stable to varus and valgus in extension and mid flexion. At this point, I removed the trial polyethylene articular insert and thoroughly irrigated out the knee again. I then placed the articular insert and made sure it was fully seated and engaged. After this, the tourniquet was let down, injected my periarticular mixture into the area incisional soft tissues. There was some oozing from various places including the bony cuts. Therefore I elected to place a 1/8 inch Hemovac exiting superolaterally from the patients knee. The arthrotomy was then closed with simple interrupted #1 Vicryl, arthrotomy closure tested in flexion with no extravasation of blood noted. Inverted interrupted 2-0 Vicryl was used for subcutaneous tissues tissue followed by running 4-0 Monocryl in a subcuticular fashion for skin. The leg was then cleansed and dried and our incisional wound VAC was then applied followed by a soft bulky dressing to the leg. All counts were correct 2 prior to wound closure. No complications. Surgery was well tolerated by the patient. At the conclusion of the surgery, the patient was awakened from anesthesia and transferred gently supine to the recovery room cart and taken to PACU in a stable and expected condition. Postoperative plan is to be admitted to the joint center for DVT and antibiotic prophylaxis as well as to begin rehabilitation. TARUN ELY II, MD Dec 31, 2017 12:14
--- NOTE | 2017-12-31 13:19 | RAD ---
AP and lateral views right knee. 12/31/2017 9:12 AM Indication: POST OP KNEE REPLACEMENT. Comparison Study: None. Findings: There are postsurgical changes following recent total knee arthroplasty. Hardware is appropriate in position without evidence of complication. No fractures or dislocations are identified. Stigmata of recent surgery including surgical drainage catheter and intra-articular fluid/gas are noted. Impression: Expected postsurgical changes following recent right total knee arthroplasty. Electronically signed by: Sky Pierre MD (12/31/2017 1:15 PM) [id number]
[2017-12-31] MEDS: IV DEXTROSE 5 %-0.45 % NACL 1,000 ML IV SCH (14:00)
[2017-12-31] MEDS ORDERED: WARFARIN 7.5 MG TABLET. PO ONE (16:00)
[2017-12-31] MEDS: FERROUS SULFATE 325 MG TABLET. PO SCH (16:46)
[2017-12-31] MEDS: ceFAZolin SODIUM 3 GM in IV DEXTROSE 5% 100ML 100 ML IV SCH ×2 (16:46→23:20)
[2017-12-31] MEDS: CELECOXIB 100 MG CAPSULE. PO SCH (20:43)
[2017-12-31] MEDS: amLODIPine BESYLATE 5 MG TABLET PO SCH (20:47)
[2018-01-01 03:00] VITALS: BP 166/77
[2018-01-01] MEDS: HYDROcodone/APAP 10/325 1 TAB TABLET PO PRN ×5 (03:10→20:41)
[2018-01-01 04:25] LABS: PROTHROMBIN TIME PATIENT 13.3 SEC (11.7-14.0)
[2018-01-01] MEDS ORDERED: MAGNESIUM HYDROXIDE 2,400 MG/30 ML ORAL.SUSP. PO PRN (06:00)
[2018-01-01] MEDS: ceFAZolin SODIUM 3 GM in IV DEXTROSE 5% 100ML 100 ML IV SCH (06:28)
[2018-01-01 07:03] VITALS: BP 167/74
--- NOTE | 2018-01-01 08:09 | PDOC ---
ORTHO PROGRESS NOTES Subjective Pain tolerable, no N/V. walked a little yesterday Vitals Vital Signs Date Time Temp Pulse Resp B/P (MAP) Pulse Ox O2 Delivery O2 Flow Rate FiO2 01/01/18 07:39 96 Nasal Cannula 3.0 01/01/18 07:03 98.4 79 20 167/74 (105) 98.4 Labs Laboratory Tests Test 12/31/17 08:55 12/31/17 16:22 01/01/18 04:05 01/01/18 06:43 Prothrombin Time 12.5 SEC (11.7-14.0) 13.3 SEC (11.7-14.0) Prothromb Time International Ratio 1.0 (0.8-1.1) 1.1 (0.8-1.1) Activated Partial Thromboplast Time 27 SEC (24-38) Glucose (Fingerstick) 138 mg/dL (70-99) 181 mg/dL (70-99) Laboratory Tests Test 12/31/17 08:55 12/31/17 16:22 01/01/18 04:05 01/01/18 06:43 Prothrombin Time 12.5 SEC (11.7-14.0) 13.3 SEC (11.7-14.0) Prothromb Time International Ratio 1.0 (0.8-1.1) 1.1 (0.8-1.1) Activated Partial Thromboplast Time 27 SEC (24-38) Glucose (Fingerstick) 138 mg/dL (70-99) 181 mg/dL (70-99) Notes A and A in bed small amount drainage on JUAN R normal m/s RLE Assessment and Plan PT/OT outpatient PT at D/C? coumadin TODD ELY II, MD Jan 01, 2018 08:09
[2018-01-01] MEDS: FERROUS SULFATE 325 MG TABLET. PO SCH ×2 (08:10→16:51)
[2018-01-01] MEDS: ALLOPURINOL 100 MG TABLET. PO SCH (08:11)
[2018-01-01] MEDS: SENNOSIDES/DOCUSATE 8.6/50MG TABLET. PO SCH (08:11)
[2018-01-01] MEDS: CELECOXIB 100 MG CAPSULE. PO SCH ×2 (08:11→20:41)
[2018-01-01] MEDS: MULTIVITAMIN with MINERAL TABLET. PO SCH (08:11)
[2018-01-01] MEDS: ATENOLOL 50 MG TABLET. PO SCH (08:12)
[2018-01-01] MEDS: INSULIN LISPRO 300 UNITS/3 ML INSULN.PEN. SQ SCH ×3 (08:17→16:54)
[2018-01-01 08:23] VITALS: BP 174/64
[2018-01-01] MEDS: IV DEXTROSE 5 %-0.45 % NACL 1,000 ML IV SCH ×3 (10:00→18:55)
[2018-01-01] MEDS: CALCIUM CARBONATE 500 MG TAB.CHEW PO PRN (15:10)
[2018-01-01] MEDS ORDERED: BISACODYL 10 MG SUPP.RECT. PR PRN (16:00)
[2018-01-01] MEDS ORDERED: WARFARIN 5 MG TABLET. PO ONE (16:00)
[2018-01-01 17:30] VITALS: BP 142/83
[2018-01-01] MEDS: amLODIPine BESYLATE 5 MG TABLET PO SCH (20:42)
[2018-01-02 05:00] VITALS: BP 154/73
[2018-01-02] MEDS: INSULIN LISPRO 300 UNITS/3 ML INSULN.PEN. SQ SCH (07:16)
--- NOTE | 2018-01-02 07:16 | PDOC ---
ORTHO PROGRESS NOTES Subjective Patient with no new complaints today. Post-op Day: 2 Procedure R TKA Vitals Vital Signs Date Time Temp Pulse Resp B/P (MAP) Pulse Ox O2 Delivery O2 Flow Rate FiO2 01/02/18 05:00 98.1 85 16 154/73 (100) 96 Room Air 98.1 01/01/18 07:39 3.0 Labs Laboratory Tests Test 12/31/17 08:55 12/31/17 16:22 01/01/18 04:05 01/01/18 06:43 Prothrombin Time 12.5 SEC (11.7-14.0) 13.3 SEC (11.7-14.0) Prothromb Time International Ratio 1.0 (0.8-1.1) 1.1 (0.8-1.1) Activated Partial Thromboplast Time 27 SEC (24-38) Glucose (Fingerstick) 138 mg/dL (70-99) 181 mg/dL (70-99) Test 01/01/18 11:24 01/01/18 16:52 01/02/18 06:26 Glucose (Fingerstick) 94 mg/dL (70-99) 94 mg/dL (70-99) 97 mg/dL (70-99) Laboratory Tests Test 01/01/18 11:24 01/01/18 16:52 01/02/18 06:26 Glucose (Fingerstick) 94 mg/dL (70-99) 94 mg/dL (70-99) 97 mg/dL (70-99) Assessment and Plan N/V intact distally dressing dry and intact continue PT discharge planning XIMENA RÍOS APRN Jan 02, 2018 07:16
[2018-01-02 07:24] LABS: HEMATOCRIT 31.9 % (39.0-53.0); HEMOGLOBIN 10.9 g/dL (13.0-17.5)
[2018-01-02 07:37] LABS: PROTHROMBIN TIME PATIENT 14.6 SEC (11.7-14.0)
[2018-01-02] MEDS ORDERED: POLYETHYLENE GLYCOL 3350 17 GM PACKET. PO PRN (07:45)
[2018-01-02] MEDS: HYDROcodone/APAP 10/325 1 TAB TABLET PO PRN (08:43)
[2018-01-02] MEDS: CALCIUM CARBONATE 500 MG TAB.CHEW PO PRN (08:43)
[2018-01-02] MEDS: SENNOSIDES/DOCUSATE 8.6/50MG TABLET. PO SCH (08:44)
[2018-01-02] MEDS: ATENOLOL 50 MG TABLET. PO SCH (08:44)
[2018-01-02] MEDS: CELECOXIB 100 MG CAPSULE. PO SCH ×2 (08:44→20:35)
[2018-01-02] MEDS: ALLOPURINOL 100 MG TABLET. PO SCH (08:44)
[2018-01-02] MEDS: MULTIVITAMIN with MINERAL TABLET. PO SCH (08:45)
[2018-01-02] MEDS: FERROUS SULFATE 325 MG TABLET. PO SCH ×2 (08:45→17:12)
[2018-01-02 08:47] VITALS: BP 186/85
[2018-01-02] MEDS: oxyCODONE/APAP 7.5/325 1 TAB TABLET PO PRN ×3 (12:01→20:36)
[2018-01-02] MEDS ORDERED: WARFARIN 5 MG TABLET. PO ONE (16:00)
[2018-01-02 17:00] VITALS: BP 174/90
--- NOTE | 2018-01-02 17:09 | PATHOLOGY ---
[facility] Accession Number: [id number] . 01 Material submitted: . RIGHT KNEE BONE AND SOFT TISSUE . 01 Clinical history: . Osteoarthritis . 02 Diagnosis: Segments of bone and soft tissue, right knee arthroplasty: - Advanced degenerative arthritis. . 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 02 Electronically signed: . Bolivar Archer MD, Pathologist NPI- [id number] . 01 Gross description: . The specimen is received in formalin, labeled "Toan Cruz, right knee bone and soft tissue", are multiple segments of francisco-yellow bone with recognizable tibia plateau, patella and attached morocho-white fibrous soft tissue measuring 12.0 x 8.5 x 2.5 cm in aggregate. Few fragments have eburnated areas with the remaining articular cartilage francisco-yellow and irregular. Peripheral osteophytes are present. Special Needs Child Caregiver tissue is submitted in A1 after decalcification. ([facility]; 12/31/2017) SHS/SHS . 02 Pathologist provided ICD-10: M17.11 . 02 CPT . 432599, 368137 Specimen Comment: A courtesy copy of this report has been sent to Specimen Comment: [phone], . Specimen Comment: Report sent to and Specimen Comment: A duplicate report has been generated due to demographic updates. Performed at: 01 [facility] [address], [place] [id number] MD Yaya Mojica MD Phone: [phone] Performed at: 02 [facility] [address], [place] [id number] MD Bolivar Archer MD Phone: [phone]
[2018-01-02] MEDS: amLODIPine BESYLATE 5 MG TABLET PO SCH (20:36)
[2018-01-03 05:30] VITALS: BP 133/80
[2018-01-03] MEDS: oxyCODONE/APAP 7.5/325 1 TAB TABLET PO PRN ×4 (06:06→16:31)
[2018-01-03] MEDS: SENNOSIDES/DOCUSATE 8.6/50MG TABLET. PO SCH (07:54)
[2018-01-03] MEDS: ALLOPURINOL 100 MG TABLET. PO SCH (07:54)
[2018-01-03] MEDS: FERROUS SULFATE 325 MG TABLET. PO SCH (07:54)
[2018-01-03] MEDS: MULTIVITAMIN with MINERAL TABLET. PO SCH (07:55)
[2018-01-03] MEDS: CELECOXIB 100 MG CAPSULE. PO SCH (07:55)
[2018-01-03] MEDS: ATENOLOL 50 MG TABLET. PO SCH (07:55)
--- NOTE | 2018-01-03 09:59 | DISCH ---
DISCHARGE INSTRUCTIONS Condition on Discharge Condition on Discharge: Stable Activity After Discharge Activity Instructions for Disc: Activity as tolerated Bathing Instructions: Shower-keep dressing dry Lifting Instructions after Dis: No heavy lifting Driving Instructions after Dis: Do not drive Weight Bearing Status after Di: As tolerated Diet after Discharge Diet after Discharge: Regular Diet Texture: Regular Liquid Texture: Thin Liquid Swallowing Supervision: None needed Wound Incision Care Wound/Incision Care: Ice to area for comfort, Keep wound elevated, Do not change dressing Wound Care Equipment: Dressings Checks after Discharge Checks after discharge: Check your Temp as needed Contacting the DRKathryn after DC Call your doctor for: Concerns you may have Follow-Up Follow up with: Melia in 2 wks TODD ELY II, MD Jan 03, 2018 09:59
[2018-01-03 10:17] LABS: HEMOGLOBIN 11.5 g/dL (13.0-17.5)
--- NOTE | 2018-01-03 10:22 | PDOC3 ---
Discharge Summary Visit Information Date of Admission: Dec 31, 2017 Date of Discharge: Jan 03, 2018 Admitting Diagnosis: advanced primary right knee degenerative joint disease Brief Hospital Course Allergies Allergies Coded Allergies Type Severity Reaction Last Updated Verified morphine Adverse Reaction Intermediate HALLUCINATIONS 01/06/16 Yes Vital Signs Vital Signs Date Time Temp Pulse Resp B/P (MAP) Pulse Ox O2 Delivery O2 Flow Rate FiO2 01/03/18 09:46 20 01/03/18 07:55 83 133/80 01/03/18 07:20 Room Air 01/03/18 05:30 97.5 97 97.5 Lab Results Laboratory Tests Test 01/01/18 11:24 01/01/18 16:52 01/02/18 06:05 01/02/18 06:26 Glucose (Fingerstick) 94 mg/dL (70-99) 94 mg/dL (70-99) 97 mg/dL (70-99) Hemoglobin 10.9 g/dL (13.0-17.5) Hematocrit 31.9 % (39.0-53.0) Mean Corpuscular Hemoglobin Concent 34 g/dL (31-37) Prothrombin Time 14.6 SEC (11.7-14.0) Prothromb Time International Ratio 1.2 (0.8-1.1) Test 01/03/18 09:55 Hemoglobin 11.5 g/dL (13.0-17.5) Hematocrit 33.0 % (39.0-53.0) Mean Corpuscular Hemoglobin Concent 35 g/dL (31-37) Laboratory Tests Test 01/03/18 09:55 Hemoglobin 11.5 g/dL (13.0-17.5) Hematocrit 33.0 % (39.0-53.0) Mean Corpuscular Hemoglobin Concent 35 g/dL (31-37) Brief Hospital Course Mr. Cruz is a 62 old male who presented to my outpatient orthopedic surgery clinic with complaints of severe and progressive pain that failed conservative therapies including injections. We had a discussion of the risks, benefits, alternatives to total knee arthroplasty and he elected to proceed. He tolerated surgery well cover well from anesthesia in the PACU. He was then taken to the joint Center for care and observation. He did receive PT, OT, DVT and antibiotic prophylaxis. He recovered well from surgery and remained hemodynamically stable and afebrile throughout the hospitalization. Pain was controlled on oral pain medicine at the time of discharge. Good progress was made with therapy throughout the hospitalization, and activities of daily living were accomplished by the patient. The incision was clean dry and intact and the operative extremity had normal motor and sensation. Discharge Information Condition at Discharge: Stable Follow Up: Weeks Disposition/Orders: D/C to Home Scheduled Allopurinol (Allopurinol) 300 Mg Tablet, 300 MG PO DAILY, (Reported) Entered as Reported by: EMELIA ECHEVERRIA on 01/10/16 1602 Last Action: Continued on 12/31/17911 by TIBURCIO ELY MD Amlodipine Besylate (Amlodipine Besylate) 5 Mg Tablet, 5 MG PO HS, (Reported) Entered as Reported by: EMELIA ECHEVERRIA on 01/10/16 1600 Last Action: Continued on 12/31/17911 by TIBURCIO ELY MD Atenolol (Atenolol) 50 Mg Tablet, 50 MG PO DAILY, (Reported) Entered as Reported by: PERLA DAMICO on 09/10/17950 Last Taken: Unknown Dose on 12/29/17 1800 Last Action: Last Taken Edited on 12/31/17950 by ERMA FERNANDEZ Discontinued Medications Acetaminophen (Tylenol) 325 Mg Tablet, 650 MG PO, (Reported) Entered as Reported by: CHITRA AG on 11/28/17 1457 Meloxicam (Meloxicam) 15 Mg Tablet, 1 TAB PO DAILY, (Reported) Entered as Reported by: EMELIA ECHEVERRIA on 01/10/16 1601 Last Taken: Unknown Dose on 12/31/17 0550 Last Action: Last Taken Edited on 12/31/17950 by ERMA FERNANDEZ Patient Instructions Patient Instructions He will start outpatient physical therapy. Wound care was discussed with him. Coumadin per pharmacy. He can weight-bear as tolerated. Worrisome signs and symptoms that should prompt a phone call to my office were discussed. We will see him back in 2 weeks, sooner should a problem arise TODD ELY II, MD Jan 03, 2018 10:22
--- NOTE | 2018-01-03 10:26 | PDOC ---
ORTHO PROGRESS NOTES Subjective He is doing well, little more ache with therapy but he is making good progress. Vitals Vital Signs Date Time Temp Pulse Resp B/P (MAP) Pulse Ox O2 Delivery O2 Flow Rate FiO2 01/03/18 09:46 20 01/03/18 07:55 83 133/80 01/03/18 07:20 Room Air 01/03/18 05:30 97.5 97 97.5 Labs Laboratory Tests Test 01/01/18 11:24 01/01/18 16:52 01/02/18 06:05 01/02/18 06:26 Glucose (Fingerstick) 94 mg/dL (70-99) 94 mg/dL (70-99) 97 mg/dL (70-99) Hemoglobin 10.9 g/dL (13.0-17.5) Hematocrit 31.9 % (39.0-53.0) Mean Corpuscular Hemoglobin Concent 34 g/dL (31-37) Prothrombin Time 14.6 SEC (11.7-14.0) Prothromb Time International Ratio 1.2 (0.8-1.1) Test 01/03/18 09:55 Hemoglobin 11.5 g/dL (13.0-17.5) Hematocrit 33.0 % (39.0-53.0) Mean Corpuscular Hemoglobin Concent 35 g/dL (31-37) Laboratory Tests Test 01/03/18 09:55 Hemoglobin 11.5 g/dL (13.0-17.5) Hematocrit 33.0 % (39.0-53.0) Mean Corpuscular Hemoglobin Concent 35 g/dL (31-37) Notes He is awake and alert in bed. His dressing is intact with good seal, small multiple bloody drainage. He remains neurovascularly intact his right lower extremity Assessment and Plan He can be discharged home today. Outpatient PT. Coumadin per pharmacy. Weight- bear as tolerated. TODD ELY II, MD Jan 03, 2018 10:26
[2018-01-03 10:37] LABS: PROTHROMBIN TIME PATIENT 14.2 SEC (11.7-14.0)
[2018-01-03] MEDS ORDERED: WARF-31 PO (11:10)
[2018-01-03 12:59] VITALS: BP 124/69
[2018-01-03] MEDS ORDERED: WARFARIN 5 MG TABLET. PO ONE (14:00)
== END 2018-01-03 17:37 | disposition home or self-care (01) | DRG 470 ==
LOC: OPSVCIP 12-31 08:31 → 4 SOUTHEST 12-31 13:51
PROVIDERS: ADMIT Orthopaedic Surgery Sports Medicine; ATTEND Orthopaedic Surgery Sports Medicine
PROC: 0SRC069 Replacement of Right Knee Joint with Oxidized Zirconium on Polyethylene Synthetic Substitute, Cemented, Open Approach (ICD-10-PCS; principal; 2017-12-31 10:00)
DX: M17.11 Unilateral primary osteoarthritis, right knee (principal); Z88.5 Allergy status to narcotic agent
CPT/HCPCS: 36415; 73560; 82962; 85014; 85018; 85610; 85730; 86850; 86900; 86901; 88305; 88311; 99406; A7015; C1713; J0171; J0690; J1100; J1815; J1885; J2405; J2704; J2795; J3010; J7030; J7120; 97116; 97150; 97530; 97535; C1769

== ENCOUNTER → 2018-01-10 | Outpatient (CLI) | payer OTHER, MEDICARE ==
[2018-01-02 08:47] VITALS: BP 186/85
[~2018-01-10] MED LIST changes: +WARF-31 PO
[2018-01-10 15:55] LABS: PROTHROMBIN TIME PATIENT 14.5 SEC (11.7-14.0)
== END | disposition home or self-care (01) ==
LOC: LAB 15:25
PROVIDERS: ATTEND Orthopaedic Surgery Sports Medicine
DX: Z51.81 Encounter for therapeutic drug level monitoring (principal); Z79.01 Long term (current) use of anticoagulants
CPT/HCPCS: 36415; 85610

== ENCOUNTER → 2018-04-22 | Outpatient (CLI) | payer OTHER ==
[~2018-04-22] MED LIST changes: -AMLO10TA6 PO; +AMLO10TA8 PO; +AMLO5TAB10 PO; -AMLO5TAB7 PO; +LOSA1TAB19 PO; +WARF-78 PO
--- NOTE | 2018-04-22 09:41 | RAD ---
Left lower extremity bone length study, 04/22/2018: HISTORY: Surgical planning for knee replacement AP views of the left femur and lower leg were obtained as requested with skin markers placed laterally to facilitate bone length measurements. These limited images demonstrate severe hypertrophic degenerative change at the left knee joint. Electronically signed by: Unruly Ortiz MD (04/22/2018 9:37 AM) [facility]
--- NOTE | 2018-04-22 10:59 | RAD ---
MR of the LEFT knee - Alfredo and Nephew protocol History: ALFREDO AND NEPHEW PROTOCOL, CHRONIC PAIN, NO SX HX, NO PRIORS, PT UNABLE TO REMAIN STILL DUE TO PAIN. Technique: Images are obtained in accordance with the standard Alfredo and Nephew protocol. Note this is not a diagnostic exam, but solely for the purpose of [email or web address] medical advisor construction. Advanced left knee joint osteoarthritis is seen with bulky tricompartmental osteophytes. Medial and patellofemoral predominant chondromalacia effacement wheezing regions of subchondral cystic change. Of note, exam is degraded patient motion artifact. Small to moderate left knee joint effusion. No evidence for acute fracture. Electronically signed by: Kevan Whitaker MD (04/22/2018 10:55 AM) [facility]
== END | disposition home or self-care (01) ==
LOC: RAD 08:06
PROVIDERS: ATTEND Orthopaedic Surgery Sports Medicine
DX: M17.12 Unilateral primary osteoarthritis, left knee (principal); M25.762 Osteophyte, left knee
CPT/HCPCS: 73721; 77073

== ENCOUNTER → 2018-05-03 | Outpatient (CLI) | payer OTHER ==
[~2018-05-03] MED LIST changes: +AMLO10TA6 PO; -AMLO10TA8 PO; -AMLO5TAB10 PO; +AMLO5TAB7 PO; -LOSA1TAB19 PO; -WARF-78 PO
--- NOTE | 2018-05-03 17:31 | RAD ---
Bilateral knees, 6 views, 05/03/2018: HISTORY: Osteoarthritis A right total knee prosthesis is in place in satisfactory position, unchanged since 12/31/2017. There is no evidence of loosening or infection. No fracture or dislocation is evident. There is a possible small joint effusion. There is moderate narrowing of the left knee joint, most severe medially. There is subchondral sclerosis and moderate marginal spurring. There is extensive hypertrophic degenerative change at the left patellofemoral articulation. No fracture or dislocation is identified. There is evidence of a small left knee joint effusion. IMPRESSION: 1. Stable right knee prosthesis. 2. Severe degenerative change at the left knee joint. Electronically signed by: Unruly Ortiz MD (05/03/2018 5:26 PM) [facility]
== END | disposition home or self-care (01) ==
LOC: RAD 12:52
PROVIDERS: ATTEND Otolaryngology
DX: M17.12 Unilateral primary osteoarthritis, left knee (principal); M25.462 Effusion, left knee; Z96.651 Presence of right artificial knee joint
CPT/HCPCS: 73562

== ENCOUNTER → 2018-05-13 | Outpatient (CLI) | payer OTHER ==
[~2018-05-13] MED LIST changes: -AMLO10TA6 PO; +AMLO10TA8 PO; +AMLO5TAB10 PO; -AMLO5TAB7 PO; +LOSA1TAB19 PO
[2018-05-13 11:26] LABS: BASO # 0.1 x10^3/uL (0.0-0.2); BASO % 1 % (0-3); EOS # 0.1 x10^3/uL (0.0-0.7); EOS % 2 % (0-3); HEMATOCRIT 40.2 % (39.0-53.0); HEMOGLOBIN 13.4 g/dL (13.0-17.5); LYMPH # 1.2 x10^3/uL (1.0-4.8); LYMPH % 18 % (24-48); MEAN CORPUSCULAR HEMOGLOBIN 32 pg (25-35); MEAN CORPUSCULAR HGB CONC 33 g/dL (31-37); MEAN CORPUSCULAR VOLUME 96 fL (79-100); MONO # 0.4 x10^3/uL (0.0-1.1); MONO % 6 % (0-9); NEUT # 4.8 x10^3uL (1.8-7.7); NEUT % 73 % (31-73); PLATELET COUNT 261 x10^3/uL (140-400); RED CELL DISTRIBUTION WIDTH 16.6 % (11.5-14.5); WHITE BLOOD COUNT 6.6 x10^3/uL (4.0-11.0)
[2018-05-13 11:34] LABS: ALBUMIN 3.9 g/dL (3.4-5.0); CALCIUM 9.6 mg/dL (8.5-10.1); GFR 92.2; POTASSIUM 4.1 mmol/L (3.5-5.1)
[2018-05-13 11:36] LABS: PROTHROMBIN TIME PATIENT 12.7 SEC (11.7-14.0)
[2018-05-13 11:43] LABS: BILIRUBIN,URINE NEGATIVE (NEG); CLARITY,URINE CLEAR; COLOR,URINE YELLOW; NITRITE,URINE NEGATIVE (NEG); PROTEIN,URINE NEGATIVE (NEG-TRACE); UROBILINOGEN,URINE 0.2 mg/dL (0.2 mg/dL)
[2018-05-13 12:10] LABS: BACTERIA,URINE FEW /HPF (0-FEW); SQUAMOUS EPITHELIAL CELL,UR FEW /LPF; WBC,URINE OCC /HPF (0-4)
--- NOTE | 2018-05-20 14:03 | NUR ---
FAXED PRE - OP TEST REPORTS TO 'S OFFICE AT 1206 AND 'S OFFICE AT 0649 05/14/2018 FOR REVIEW AND RECEIVED TRANSMITTAL CONFIRMATION IN BOTH OFFICES. FAXED 'S CARDIAC CLEARANCE AND 'S MEDICAL CLEARANCE NOTES TO 'S OFFICE 05/20/2018 AT 0568.
== END | disposition home or self-care (01) ==
LOC: SURGPAT 10:28
PROVIDERS: ATTEND Orthopaedic Surgery Sports Medicine
DX: Z01.818 Encounter for other preprocedural examination (principal); M17.12 Unilateral primary osteoarthritis, left knee; Z88.5 Allergy status to narcotic agent
CPT/HCPCS: 36415; 80048; 81001; 82040; 85025; 85610; 85651; 85730; 87641

== ENCOUNTER 2018-06-17 05:59 | Inpatient (IN) | payer OTHER ==
[2018-06-17] VITALS (11 sets, daily range): BP systolic 132–165; BP diastolic 78–101
[~2018-06-17] VITALS: Ht 177.8 cm; Wt 149.7 kg
[~2018-06-17 05:59] MED LIST changes: +BUPIVACAINE MPF 0.25% 30 ML VIAL. ONE; +methylPREDNISolone ACETATE 40 MG/ML VIAL. ONE
[2018-06-17] MEDS ORDERED: ceFAZolin SODIUM 3 GM in IV DEXTROSE 5% 100ML 100 ML IV PRN (06:00)
[2018-06-17] MEDS ORDERED: HYDROcodone/APAP 7.5/325MG 1 TAB TABLET PO PRN (06:00)
[2018-06-17] MEDS ORDERED: MORPHINE SULFATE 5 MG, KETOROLAC 30MG VIAL 30 MG, ROPIVacaine 0.5% PF 60 ML, EPINEPHrin... INT ART ONE ×5 (06:00)
[2018-06-17] MEDS ORDERED: TRANEXAMIC ACID 1,000 MG in IV NS 50ML -- 1ST BAG INJ ONE (06:00)
[2018-06-17] MEDS ORDERED: MELOXICAM 7.5 MG TABLET PO PRN (06:00)
[2018-06-17] MEDS: IV RINGERS,LACTATED 1000ML 1,000 ML IV SCH ×2 (06:57→10:12)
[2018-06-17] MEDS ORDERED: fentaNYL PF VIAL 100 MCG/2 ML VIAL IV PRN ×2 (07:00→07:45)
[2018-06-17] MEDS ORDERED: PROCHLORPERAZINE 10 MG/2 ML VIAL. IV PRN (07:00)
[2018-06-17] MEDS ORDERED: ONDANSETRON PF 4 MG/2 ML VIAL. IV PRN (07:00)
[2018-06-17] MEDS ORDERED: LIDOCAINE 1% PF 2 ML VIAL. ID PRN (07:00)
[2018-06-17] MEDS ORDERED: WARF-78 PO (07:04)
[2018-06-17] MEDS ORDERED: fentaNYL PF VIAL 100 MCG/2 ML VIAL ONE ×2 (07:12→07:42)
[2018-06-17] MEDS ORDERED: ROCURONIUM 50 MG/5 ML VIAL. ONE (07:12)
[2018-06-17 07:39] LABS: PROTHROMBIN TIME PATIENT 12.6 SEC (11.7-14.0)
[2018-06-17] MEDS ORDERED: DEXTROSE 50% 25 GM / 50ML DISP.SYRIN. IV PRN (07:45)
[2018-06-17] MEDS ORDERED: diphenhydrAMINE 50 MG/ML VIAL IV PRN (07:45)
[2018-06-17] MEDS ORDERED: CALCIUM CARBONATE 500 MG TAB.CHEW PO PRN (07:45)
[2018-06-17] MEDS ORDERED: METOCLOPRAMIDE HCL 10 MG/2 ML VIAL. IV PRN (07:45)
[2018-06-17] MEDS ORDERED: 0.9 % SODIUM CHLORIDE 10 ML DISP.SYRIN. IV PRN (07:45)
[2018-06-17] MEDS ORDERED: ZOLPIDEM 5 MG TABLET. PO PRN (07:45)
[2018-06-17] MEDS ORDERED: PROCHLORPERAZINE 5 MG TABLET. PO PRN (07:45)
[2018-06-17] MEDS ORDERED: SEVOFLURANE 61 TO 120 MINUTES. IH ONE (07:49)
[2018-06-17] MEDS ORDERED: GLYCOPYRROLATE 1 MG/5 ML VIAL. ONE (07:50)
[2018-06-17] MEDS ORDERED: LIDOCAINE 2% PF 5 ML VIAL. ONE (07:53)
[2018-06-17] MEDS ORDERED: PROPOFOL 40 ML IV ONE (07:53)
[2018-06-17] MEDS ORDERED: DEXAMETHASONE SOD PHOS 20 MG/5 ML VIAL. ONE (07:53)
[2018-06-17] MEDS ORDERED: TRANEXAMIC ACID 1,000 MG in IV NS 50ML -- 2ND BAG INJ ONE (08:00)
[2018-06-17] MEDS ORDERED: ceFAZolin SODIUM 3 GM in IV DEXTROSE 5% 100ML 100 ML IV SCH (08:00)
[2018-06-17] MEDS ORDERED: NON FORMULARY ITEM (Losartan/Hydrochlorothiazide (Losartan-Hctz 50-12.5 Mg Tab) 1 TAB) PO SCH (09:00)
[2018-06-17] MEDS ORDERED: NEOSTIGMINE 10 MG/10 ML VIAL. ONE (09:09)
[2018-06-17] MEDS ORDERED: IV NORMAL SALINE 1000ML BAG 1,000 ML IV SCH (10:00)
[2018-06-17] MEDS: fentaNYL PF VIAL 100 MCG/2 ML VIAL IV PRN ×4 (10:06→11:06)
--- NOTE | 2018-06-17 10:40 | PDOC4 ---
Operative Note Operative Note Date of procedure: 06/17/2018 Surgeon: Tarun Valientet.: Maldonado Flannery, advanced practice registered nurse who was necessary to assist with patient manipulation and retraction of the leg throughout this procedure. Preoperative diagnosis: Advanced left knee primary degenerative joint disease Postoperative diagnosis: Same Procedure performed: Left total knee arthroplasty Anesthesia: Gen. Complications: None Tourniquet time: 60 minutes Blood loss: 50 mL Findings: Advanced primary degenerative joint disease, tricompartmental Components inserted: Alfredo and nephew Oxinium size 8 femur, size 7 journey II tibial baseplate, 23 mm biconvex patella, 9 mm thick polyethylene articular insert Reason for procedure: Patient is very pleasant 62-year-old gentleman who has underwent a successful contralateral right total knee with myself and due to severe and progressive pain as well as failure of conservative therapies for his left knee DJD, confirmed clinically and radiographically, we had a discussion of the risks, benefits, and alternatives to the above surgery and he wished to proceed. Description of procedure: Patient was greeted in the preoperative area by myself for the correct extremity was verified and marked. He was taken to the operative suite and antibiotics were started as he was brought back. Once in the operative room, he was transferred gently supine to the operating table and secured the bed with all pressure points padded. He underwent successful induction of general anesthetic. We then secured the bed. Examination under anesthesia demonstrated range of motion from 5-130. Nonsterile tourniquet was then taped in place to his left thigh. Left lower extremity was then prepped and draped in our usual sterile fashion including an Ioban Frankford. We then conducted our standard preoperative timeout. I palpated and marked surface anatomy and goldy a line on the Ioban for my standard anterior midline skin incision. Extremity was exsanguinated with an Esmarch and tourniquet insufflated to 250 mmHg. Skin was incised with a scalpel and I dissected subcutaneous tissues tissue to expose the extensor mechanism with electrocautery , I cauterized bleeders as a were encountered as well. Identified the quadriceps , patellar tendon, borders of the patella. I then made my standard medial parapatellar arthrotomy. I performed my medial release with combination of Sherman elevator and electrocautery. After this, the fat pad was bluntly dissected off of the posterior patellar tendon and an [employer] was used to protect the tendon with fat pad was excised. The knee was then flexed and I excised the cruciates. I then placed my visionary cutting block and secured in place over his distal femur. I marked the holes for rotation. I then remove this cutting block and placed the standard cutting block at the +2 position to account for his contracture. I then made my distal femoral cut and removed the bony pieces and the cutting block. I then impacted my 5 in 1 cutting block and secured it with threaded pins and then made these respective cuts removing the bony pieces from the operative field, taking care to ensure had removed any osteophytes posteriorly. After this, my retractors were repositioned and I added a popliteal retractor. I then trialed the tibial cutting block, but it did not seat well at all. I then used next medullary tibial cutting guide and pinned this into place and then made my proximal tibial cut. I removed this guide and the bony pieces from the operative field. Leg was brought out into extension and alignment and cut was checked with spacer block and drop cathryn and was happy with the stability and full extension. After this, the knee and retractors were again repositioned and I trialed and pinned into position my tibial baseplate trial, I reamed and punched for this. I referenced medial third of the tibial tubercle the semi-rotation. I then impacted my distal femoral trial component position and reamed and punched for the cam portion. The femoral component, the trial, was secured with a pin while doing this. I then remove the pin and trialed polyethylene liners and felt the 9 gave full range of motion, 0 140 as well as a knee that was stable to varus and valgus in extension and mid flexion. After this, I directed my attention to the patella he had a large overhanging osteophyte which broke free so I removed this. It was lateral. I then placed my guide and selected the 23 biconvex patella and reamed for this. With all trial components in, he had full range of motion, 0-140 in his knee was stable. Patella tracked very well. I then removed all trial components and proceeded to cement in place my tibial followed by my femur. Prior to cementing , copious irrigation was performed with the bony surfaces and operative field. With the femur and tibia in place, I placed a trial polyethylene articular insert and the cement was allowed to polymerize in extension. We took care to remove all excess bone cement. After this, the patellar button was clamped in place and secured with cement as well. After the cement polymerized, I performed my periarticular injection in the buddy-incisional soft tissue envelope. We then trialed the knee again. Excellent patellar tracking. Range of motion 0-140 and the knee was stable to varus and valgus in extension and mid flexion. I then removed the trial polyethylene and irrigated out the operative field again and I inserted and fully seated the articular insert, making sure was locked in position. The tourniquet was let down and bleeders were cauterized. He had some oozing from a couple bony surfaces and therefore I placed a 1/8 inch Hemovac exiting superolaterally from the knee. We then closed arthrotomy with simple interrupted #1 Vicryl. This was followed by closing subcutaneous tissue in a multilayered fashion with inverted interrupted 2-0 Vicryl followed by running 3-0 Monocryl in subcuticular fashion for skin. Prior to wound closure, all counts correct 2. No complications. At the conclusion, the leg was cleansed and dried and our incisional wound VAC was applied. The patient was awakened from anesthesia and transferred gently supine to the hospital bed and taken to the PACU in a stable and extubated condition. Postoperative plan is to admit him to the joint center for DVT and antibiotic prophylaxis as well as to begin his rehabilitation. TARUN ELY II, MD Jun 17, 2018 10:40
--- NOTE | 2018-06-17 10:44 | RAD ---
Two-view left knee dated 06/17/2018. No comparison available. Clinical data indication: Postop knee arthroplasty. FINDINGS: AP and lateral views obtained. Interval total knee arthroplasty. Femoral and tibial components are intact. No periprosthetic fracture or malalignment. Postsurgical changes of the patella. Diffuse soft tissue swelling and soft tissue gas with suprapatellar drain in place. IMPRESSION: Status post left knee arthroplasty Electronically signed by: Rufus Smith MD (06/17/2018 10:41 AM) [facility]
[2018-06-17] MEDS: ONDANSETRON PF 4 MG/2 ML VIAL. IV SCH ×3 (12:00→18:00)
[2018-06-17] MEDS: oxyCODONE IR 5 MG TABLET PO PRN ×3 (13:48→22:15)
[2018-06-17] MEDS: ONDANSETRON ODT 4 MG TAB.RAPDIS. PO SCH ×2 (13:48→18:00)
[2018-06-17] MEDS: ceFAZolin SODIUM 3 GM in IV DEXTROSE 5% 100ML 100 ML IV SCH ×2 (14:17→20:58)
[2018-06-17] MEDS ORDERED: MELO15TA23 PO (14:24)
[2018-06-17] MEDS ORDERED: hydrALAZINE 20 MG/ML VIAL. IVP PRN (16:00)
[2018-06-17] MEDS ORDERED: WARFARIN 7.5 MG TABLET. PO ONE (16:00)
[2018-06-17] MEDS: INSULIN LISPRO 300 UNITS/3 ML INSULN.PEN. SQ SCH (17:00)
[2018-06-17] MEDS: FERROUS SULFATE 325 MG TABLET. PO SCH (18:07)
[2018-06-17] MEDS: amLODIPine BESYLATE 5 MG TABLET PO SCH (20:58)
[2018-06-18] MEDS: ceFAZolin SODIUM 3 GM in IV DEXTROSE 5% 100ML 100 ML IV SCH (01:30)
[2018-06-18 03:00] VITALS: BP 147/70
[2018-06-18] MEDS: oxyCODONE IR 5 MG TABLET PO PRN ×4 (04:09→20:46)
[2018-06-18 04:15] LABS: HEMATOCRIT 33.9 % (39.0-53.0); HEMOGLOBIN 11.1 g/dL (13.0-17.5)
[2018-06-18 04:21] LABS: PROTHROMBIN TIME PATIENT 13.3 SEC (11.7-14.0)
[2018-06-18] MEDS: ONDANSETRON PF 4 MG/2 ML VIAL. IV SCH ×2 (06:00)
[2018-06-18] MEDS: ONDANSETRON ODT 4 MG TAB.RAPDIS. PO SCH ×2 (06:00)
[2018-06-18] MEDS ORDERED: MAGNESIUM HYDROXIDE 2,400 MG/30 ML ORAL.SUSP. PO PRN (06:00)
[2018-06-18 07:00] VITALS: BP 125/73
--- NOTE | 2018-06-18 07:32 | NUR ---
Reassessments not done from medications administered by cnc machinist 2nd shift nurse. This nurse shift started at 0645. Keily was non-admin- cnc machinist 2nd shift did not give the med.
[2018-06-18] MEDS: INSULIN LISPRO 300 UNITS/3 ML INSULN.PEN. SQ SCH (08:00)
[2018-06-18] MEDS: FERROUS SULFATE 325 MG TABLET. PO SCH ×2 (08:14→17:24)
[2018-06-18] MEDS: ATENOLOL 50 MG TABLET. PO SCH (08:14)
[2018-06-18] MEDS: hydroCHLOROthiazide 12.5 MG CAPSULE PO SCH (08:14)
[2018-06-18] MEDS: ALLOPURINOL 300 MG TABLET. PO SCH (08:15)
[2018-06-18] MEDS: ACETAMINOPHEN 500 MG TABLET PO SCH ×3 (08:15→20:45)
[2018-06-18] MEDS: SENNOSIDES/DOCUSATE 8.6/50MG TABLET. PO SCH (08:15)
[2018-06-18] MEDS: MULTIVITAMIN with MINERAL TABLET. PO SCH (08:15)
[2018-06-18] MEDS: LOSARTAN POTASSIUM 50 MG TABLET. PO SCH (08:15)
--- NOTE | 2018-06-18 09:16 | DISCH ---
DISCHARGE INSTRUCTIONS Condition on Discharge Condition on Discharge: Stable Activity After Discharge Activity Instructions for Disc: Activity as tolerated Bathing Instructions: Shower-keep dressing dry Lifting Instructions after Dis: No heavy lifting Driving Instructions after Dis: Do not drive Weight Bearing Status after Di: As tolerated Diet after Discharge Diet after Discharge: Regular Diet Texture: Regular Swallowing Supervision: None needed Wound Incision Care Wound/Incision Care: Ice to area for comfort, Keep wound/cast CDI, Keep wound elevated, Do not change dressing Wound Care Equipment: Dressings Checks after Discharge Checks after discharge: Check your Temp as needed Contacting the DRKathryn after DC Call your doctor for: Concerns you may have Follow-Up Follow up with: Melia in 2 wks Warfarin Follow-Up Warfarin Follow UP: per pharmacy TODD ELY II, MD Jun 18, 2018 09:16
--- NOTE | 2018-06-18 09:19 | PDOC ---
ORTHO PROGRESS NOTES Subjective Pain tolerable, no complaints Vitals Vital Signs Date Time Temp Pulse Resp B/P (MAP) Pulse Ox O2 Delivery O2 Flow Rate FiO2 06/18/18 08:15 85 127/70 06/18/18 07:00 98.1 16 95 Room Air 98.1 06/17/18 13:21 2.0 Labs Laboratory Tests Test 06/17/18 06:20 06/17/18 11:19 06/17/18 14:33 06/18/18 03:20 Prothrombin Time 12.6 SEC (11.7-14.0) 13.3 SEC (11.7-14.0) Prothromb Time International Ratio 1.0 (0.8-1.1) 1.0 (0.8-1.1) Activated Partial Thromboplast Time 21 SEC (24-38) Glucose (Fingerstick) 130 mg/dL (70-99) 129 mg/dL (70-99) Hemoglobin 11.1 g/dL (13.0-17.5) Hematocrit 33.9 % (39.0-53.0) Mean Corpuscular Hemoglobin Concent 33 g/dL (31-37) Test 06/18/18 08:02 Glucose (Fingerstick) 117 mg/dL (70-99) Laboratory Tests Test 06/17/18 11:19 06/17/18 14:33 06/18/18 03:20 06/18/18 08:02 Glucose (Fingerstick) 130 mg/dL (70-99) 129 mg/dL (70-99) 117 mg/dL (70-99) Hemoglobin 11.1 g/dL (13.0-17.5) Hematocrit 33.9 % (39.0-53.0) Mean Corpuscular Hemoglobin Concent 33 g/dL (31-37) Prothrombin Time 13.3 SEC (11.7-14.0) Prothromb Time International Ratio 1.0 (0.8-1.1) Notes A and A in bed dressing intact, normal m/s distally Assessment and Plan PT/OT, coumadin anticipate D/C with outpatient PT TODD ELY II, MD Jun 18, 2018 09:19
--- NOTE | 2018-06-18 10:44 | PDOC ---
ORTHO PROGRESS NOTES Subjective Patient sitting up in chair at bedside with no new complaints. Post-op Day: 2 Procedure L TKA Vitals Vital Signs Date Time Temp Pulse Resp B/P (MAP) Pulse Ox O2 Delivery O2 Flow Rate FiO2 06/18/18 08:15 85 127/70 06/18/18 07:00 98.1 16 95 Room Air 98.1 06/17/18 13:21 2.0 Labs Laboratory Tests Test 06/17/18 06:20 06/17/18 11:19 06/17/18 14:33 06/18/18 03:20 Prothrombin Time 12.6 SEC (11.7-14.0) 13.3 SEC (11.7-14.0) Prothromb Time International Ratio 1.0 (0.8-1.1) 1.0 (0.8-1.1) Activated Partial Thromboplast Time 21 SEC (24-38) Glucose (Fingerstick) 130 mg/dL (70-99) 129 mg/dL (70-99) Hemoglobin 11.1 g/dL (13.0-17.5) Hematocrit 33.9 % (39.0-53.0) Mean Corpuscular Hemoglobin Concent 33 g/dL (31-37) Test 06/18/18 08:02 Glucose (Fingerstick) 117 mg/dL (70-99) Laboratory Tests Test 06/17/18 11:19 06/17/18 14:33 06/18/18 03:20 06/18/18 08:02 Glucose (Fingerstick) 130 mg/dL (70-99) 129 mg/dL (70-99) 117 mg/dL (70-99) Hemoglobin 11.1 g/dL (13.0-17.5) Hematocrit 33.9 % (39.0-53.0) Mean Corpuscular Hemoglobin Concent 33 g/dL (31-37) Prothrombin Time 13.3 SEC (11.7-14.0) Prothromb Time International Ratio 1.0 (0.8-1.1) Notes Awake and alert Just finished PT Assessment and Plan POD#2 S/P L TKA motor and sensory intact distally dressing dry and intact moving toes and foot without difficulty XIMENA RÍOS APRN Jun 18, 2018 10:44
[2018-06-18 11:00] VITALS: BP 134/70
--- NOTE | 2018-06-18 11:05 | NUR ---
Pharmacy Warfarin Dosing Note S:Pharmacy consulted to assist with anticoagulation therapy started 06/17/18 with target INR: 1.6 - 2.5 O:MIO CAMPOVERDE is a 62 year old M with TKA LABS: Last INR: 1.0 Last HGB: 11.1 Last HCT: 33.9 Last PLT: Last dose of 7.5 mg given on 06/17/18 at 1807 Previous Regimen: Vitamin K given: Drug Interaction Changes: Ongoing Drug Interactions: A:INR of 1.0 is below desired range. Target range for this patient is: 1.6 - 2.5 P: Warfarin dose: 5 mg Today at 1600 Bridge Therapy: None Next INR due 06/19/18. Pharmacy anticoagulation service will continue to follow. PORTIA CORDREO RPH, 06/18/18 0488
[2018-06-18] MEDS ORDERED: ONDANSETRON PF 4 MG/2 ML VIAL. IV PRN (12:00)
[2018-06-18] MEDS ORDERED: ONDANSETRON ODT 4 MG TAB.RAPDIS. PO PRN (12:00)
[2018-06-18 14:53] VITALS: BP 125/62
[2018-06-18] MEDS ORDERED: BISACODYL 10 MG SUPP.RECT. PR PRN (16:00)
[2018-06-18] MEDS ORDERED: WARFARIN 5 MG TABLET. PO ONE (16:00)
--- NOTE | 2018-06-18 16:36 | NUR ---
Hemovac discontinued from left knee per order, tolerated procedure well, 4x4 & foam dressing applied, leg elevated, ice pack for comfort
[2018-06-18 17:45] VITALS: BP 124/66
--- NOTE | 2018-06-18 17:54 | NUR ---
Daughter brought in walker from home
[2018-06-18] MEDS: amLODIPine BESYLATE 5 MG TABLET PO SCH (20:46)
[2018-06-19] MEDS: ACETAMINOPHEN 500 MG TABLET PO SCH ×4 (03:00→20:28)
[2018-06-19 04:42] LABS: HEMATOCRIT 32.9 % (39.0-53.0); HEMOGLOBIN 10.9 g/dL (13.0-17.5)
[2018-06-19] MEDS: oxyCODONE IR 5 MG TABLET PO PRN ×4 (04:47→20:28)
[2018-06-19 04:49] LABS: PROTHROMBIN TIME PATIENT 13.9 SEC (11.7-14.0)
--- NOTE | 2018-06-19 04:55 | NUR ---
Patient slept well all noc with light snoring. Roxicodone given per request. Assisted to toilet, + small BM per pt. Ambulates w/o difficulty, reports knee is "sore". In recliner. JESUS hose removed. Call light in reach.
[2018-06-19 06:23] VITALS: BP 146/89
--- NOTE | 2018-06-19 07:47 | PDOC ---
ORTHO PROGRESS NOTES Subjective Patient sitting up in chair at bedside eating breakfast with no complaints Post-op Day: 2 Procedure L TKA Vitals Vital Signs Date Time Temp Pulse Resp B/P (MAP) Pulse Ox O2 Delivery O2 Flow Rate FiO2 06/19/18 07:31 Room Air 06/19/18 06:23 98.4 88 20 146/89 (108) 94 98.4 Labs Laboratory Tests Test 06/17/18 11:19 06/17/18 14:33 06/18/18 03:20 06/18/18 08:02 Glucose (Fingerstick) 130 mg/dL (70-99) 129 mg/dL (70-99) 117 mg/dL (70-99) Hemoglobin 11.1 g/dL (13.0-17.5) Hematocrit 33.9 % (39.0-53.0) Mean Corpuscular Hemoglobin Concent 33 g/dL (31-37) Prothrombin Time 13.3 SEC (11.7-14.0) Prothromb Time International Ratio 1.0 (0.8-1.1) Test 06/19/18 04:25 Hemoglobin 10.9 g/dL (13.0-17.5) Hematocrit 32.9 % (39.0-53.0) Mean Corpuscular Hemoglobin Concent 33 g/dL (31-37) Prothrombin Time 13.9 SEC (11.7-14.0) Prothromb Time International Ratio 1.1 (0.8-1.1) Laboratory Tests Test 06/18/18 08:02 06/19/18 04:25 Glucose (Fingerstick) 117 mg/dL (70-99) Hemoglobin 10.9 g/dL (13.0-17.5) Hematocrit 32.9 % (39.0-53.0) Mean Corpuscular Hemoglobin Concent 33 g/dL (31-37) Prothrombin Time 13.9 SEC (11.7-14.0) Prothromb Time International Ratio 1.1 (0.8-1.1) Notes Awake and alert planning on going home tomorrow Assessment and Plan POD# 2 S/P L TKA motor and sensory intact distally dressing dry and intact continue PT discharge tomorrow XIMENA RÍOS APRN Jun 19, 2018 07:47
[2018-06-19] MEDS: MULTIVITAMIN with MINERAL TABLET. PO SCH (08:05)
[2018-06-19] MEDS: FERROUS SULFATE 325 MG TABLET. PO SCH ×2 (08:05→14:52)
[2018-06-19] MEDS: ALLOPURINOL 300 MG TABLET. PO SCH (08:05)
[2018-06-19] MEDS: hydroCHLOROthiazide 12.5 MG CAPSULE PO SCH (08:05)
[2018-06-19] MEDS: ATENOLOL 50 MG TABLET. PO SCH (08:06)
[2018-06-19] MEDS: LOSARTAN POTASSIUM 50 MG TABLET. PO SCH (08:06)
[2018-06-19] MEDS: SENNOSIDES/DOCUSATE 8.6/50MG TABLET. PO SCH (08:06)
--- NOTE | 2018-06-19 13:45 | NUR ---
Pharmacy Warfarin Dosing Note S:Pharmacy consulted to assist with anticoagulation therapy started 06/17/18 with target INR: 1.6 - 2.5 O:MIO CAMPOVERDE is a 62 year old M with TKA LABS: Last INR: 1.1 Last HGB: 10.9 Last HCT: 32.9 Last PLT: Last dose of 5 mg given on 06/18/18 at 1608 Previous Regimen: Vitamin K given: Drug Interaction Changes: Ongoing Drug Interactions: A:INR of 1.1 is below desired range. Target range for this patient is: 1.6 - 2.5 P: Warfarin dose: 7.5 mg Today at 1600 Bridge Therapy: None Next INR due 06/20/18. Pharmacy anticoagulation service will continue to follow. PORTIA CORDERO RPH, 06/19/18 2990
[2018-06-19] MEDS ORDERED: WARFARIN 7.5 MG TABLET. PO ONE (16:00)
--- NOTE | 2018-06-19 16:07 | PATHOLOGY ---
[facility] Accession Number: [id number] . 01 Material submitted: . LEFT KNEE BONE . 01 Clinical history: . Left total knee arthroplasty . 02 Diagnosis: Segments of bone and soft tissue, left total knee arthroplasty: - Advanced degenerative arthritis. (JPM:[facility] 06/19/2018) QTP/06/19/2018 . 02 Electronically signed: . Bolivar Archer MD, Pathologist NPI- [id number] . 01 Gross description: . The specimen is received in formalin, labeled "Toan Cruz, left knee bone", are multiple segments of francisco-yellow bone consisting of recognizable portion of tibia plateau and patella and morocho-white fibrous and yellow lobulated soft tissue with recognizable portion of meniscus measuring 15 x 9.5 x 2.0 cm in aggregate. Several fragments show eburnation and peripheral osteophytes. The meniscus and few bone segments are focally covered by morocho-white chalky material. Foreign Language Interpreter sections in A1 after decalcification. (SWS; 06/17/2018) SHS/SHS . 02 Pathologist provided ICD-10: M17.12 . 02 CPT . 677372, 424220 Specimen Comment: A courtesy copy of this report has been sent to Specimen Comment: [phone], , . Specimen Comment: Report sent to ,DR JEFFRIES / DR MORRISON Specimen Comment: A duplicate report has been generated due to demographic updates. Performed at: 01 [facility] [address], [place], [place] [id number] MD Yaya Mojica MD Phone: [phone] Performed at: 02 [facility] [address] [place], [place] [id number] MD Bolivar Archer MD Phone: [phone]
[2018-06-19 17:36] VITALS: BP 114/68
[2018-06-19] MEDS ORDERED: MAGNESIUM HYDROXIDE 2,400 MG/30 ML ORAL.SUSP. PO ONE ×2 (18:45→19:00)
[2018-06-19] MEDS: amLODIPine BESYLATE 5 MG TABLET PO SCH (20:35)
[2018-06-20] MEDS: ACETAMINOPHEN 500 MG TABLET PO SCH ×3 (03:00→14:31)
[2018-06-20 05:14] LABS: HEMATOCRIT 34.6 % (39.0-53.0); HEMOGLOBIN 11.5 g/dL (13.0-17.5)
[2018-06-20 05:20] LABS: PROTHROMBIN TIME PATIENT 13.8 SEC (11.7-14.0)
[2018-06-20 06:00] VITALS: BP 158/84
--- NOTE | 2018-06-20 06:26 | NUR ---
Slept well w/ heavy snoring. Got OOB once and ambulated to toilet. No BM. Has denied pain and refused offered pain meds since HS. Saline lock DC'd earlier. Anticipates dismissal today.
[2018-06-20] MEDS ORDERED: POLYETHYLENE GLYCOL 3350 17 GM PACKET. PO PRN (07:30)
[2018-06-20] MEDS: MULTIVITAMIN with MINERAL TABLET. PO SCH (09:39)
[2018-06-20] MEDS: ALLOPURINOL 300 MG TABLET. PO SCH (09:40)
[2018-06-20] MEDS: hydroCHLOROthiazide 12.5 MG CAPSULE PO SCH (09:40)
[2018-06-20] MEDS: SENNOSIDES/DOCUSATE 8.6/50MG TABLET. PO SCH (09:40)
[2018-06-20] MEDS: FERROUS SULFATE 325 MG TABLET. PO SCH (09:40)
[2018-06-20] MEDS: ATENOLOL 50 MG TABLET. PO SCH (09:41)
[2018-06-20] MEDS: LOSARTAN POTASSIUM 50 MG TABLET. PO SCH (09:41)
[2018-06-20] MEDS: oxyCODONE IR 5 MG TABLET PO PRN ×2 (09:45→14:30)
[2018-06-20 09:48] VITALS: BP 114/67
--- NOTE | 2018-06-20 11:55 | PDOC ---
PROGRESS NOTES Subjective Subjective No complaints. Planning on discharge today to home. Objective Vital Signs Vital Signs Date Time Temp Pulse Resp B/P (MAP) Pulse Ox O2 Delivery O2 Flow Rate FiO2 06/20/18 09:48 116 114/67 (83) 06/20/18 09:45 Room Air 06/20/18 06:00 98.4 20 94 98.4 06/17/18 13:21 2.0 Physical Exam JUAN R intact and dry. Good AROM ankle. Calf soft and nontender. Minimal warmth or erythema. Labs Laboratory Tests Test 06/19/18 04:25 06/20/18 05:00 Hemoglobin 10.9 g/dL (13.0-17.5) 11.5 g/dL (13.0-17.5) Hematocrit 32.9 % (39.0-53.0) 34.6 % (39.0-53.0) Mean Corpuscular Hemoglobin Concent 33 g/dL (31-37) 33 g/dL (31-37) Prothrombin Time 13.9 SEC (11.7-14.0) 13.8 SEC (11.7-14.0) Prothromb Time International Ratio 1.1 (0.8-1.1) 1.1 (0.8-1.1) Laboratory Tests Test 06/20/18 05:00 Hemoglobin 11.5 g/dL (13.0-17.5) Hematocrit 34.6 % (39.0-53.0) Mean Corpuscular Hemoglobin Concent 33 g/dL (31-37) Prothrombin Time 13.8 SEC (11.7-14.0) Prothromb Time International Ratio 1.1 (0.8-1.1) Assessment Assessment POD #3 TKA Plan Plan of Care Discharge planning for today. Continue PT and DVT prophylaxis. F/U 10-14 days in office. GUERITA KYLE MD Jun 20, 2018 11:55
--- NOTE | 2018-06-20 11:57 | DISCH ---
DISCHARGE WITH HOME HEALTH DISCHARGE INFORMATION: Discharge Date: Jun 20, 2018 Final Diagnosis: left knee osteoarthritis. Left total knee arthroplasty. Condition on Discharge: Stable CODE STATUS: Code Status: Full HOME HEALTH: Face to Face: I certify this patient is under my care and that I, or a nurse practitioner or physician's photography assistant working with me, had a face to face encounter that meets the physician face to face encounter requirements with this patient on []. Medical Complications: DJD, HTN, S/P Joint Replacement Physical Therapy For: Evalulation/Treatment Occupational Therapy For: Evaluation/Treatment Pt Meets Homebound Status: Unsteady balance w/ amb,, Limited distance walking POST DISCHARGE ORDERS: Activity Instructions for Disc: Activity as tolerated, Progressive ambulation Weight Bearing Status after Di: No restrictions Bathing Instructions: Shower-keep dressing dry DIET AFTER DISCHARGE: Regular Wound/Incision Care: Ice to area for comfort CHECKS AFTER DISCHARGE: Checks after discharge: Check your Temp as needed FOLLOW-UP: Follow up with: Melia in 2 wks Follow Up With: Dr. Cárdenas in 2 weeks [phone] Warfarin Follow UP: per pharmacy TREATMENT/EQUIPMENT ORDERS: Adaptive Equipment Issued: Front wheeled walker CERTIFICATION STATEMENT: Certification Statement: Certification Statement: Based on the above finding, I certify that this patient is confined to the home and needs intermittent usp care, physical therapy and/or speech therapy, or continues to need occupational therapy.~ This patient is under my care, and I have initiated the establishment of the plan of care.~ This patient will be followed by myself or a community physician who will periodically review the plan of care. Home Meds Reported Medications Warfarin Sodium (COUMADIN) 5 Mg Tablet, 5 MG PO ONCE for for surgery, #30 TAB 06/17/18 Losartan/Hydrochlorothiazide (LOSARTAN-HCTZ 50-12.5 MG TAB) 1 Each Tablet, 1 TAB PO DAILY for HYPERTENSION, #30 TAB 5 Refills 05/20/18 Atenolol (ATENOLOL) 50 Mg Tablet, 50 MG PO DAILY for blood pressure 09/10/17 Allopurinol (ALLOPURINOL) 300 Mg Tablet, 300 MG PO DAILY for gout, TAB 01/10/16 Amlodipine Besylate (AMLODIPINE BESYLATE) 5 Mg Tablet, 5 MG PO HS for blood pressure, TAB 01/10/16 Discontinued Reported Medications Meloxicam (MELOXICAM) 15 Mg Tablet, 1 TAB PO DAILY for arthritic pain, #30 TAB 2 Refills 06/17/18 GUERITA KYLE MD Jun 20, 2018 11:56
[2018-06-20] MEDS ORDERED: WARFARIN 4 MG TABLET. PO ONE (14:00)
--- NOTE | 2018-06-20 15:06 | NUR ---
Discharged to home per w/c accompanied by spouse & others, instructions given to spouse, ice pack, JESUS hose provided for home use, [facility] sheet for details
--- NOTE | 2018-07-16 12:49 | PDOC3 ---
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 Cruz is a 62 old male who presented to my outpatient orthopedic surgery clinic with complaints of severe and progressive pain that failed conservative therapies including injections. We had a discussion of the risks, benefits, alternatives to total knee arthroplasty and he elected to proceed. He tolerated surgery well cover well from anesthesia in the PACU. He was then taken to the joint Center for care and observation. He did receive PT, OT, DVT and antibiotic prophylaxis. He recovered well from surgery and remained hemodynamically stable and afebrile throughout the hospitalization. Pain was controlled on oral pain medicine at the time of discharge. Good progress was made with therapy throughout the hospitalization, and activities of daily living were accomplished by the patient. The incision was clean dry and intact and the operative extremity had normal motor and sensation. Discharge Information Condition at Discharge: Stable Follow Up: Weeks Disposition/Orders: D/C to Home w/ HH Scheduled Allopurinol (Allopurinol) 300 Mg Tablet, 300 MG PO DAILY for gout, (Reported) Entered as Reported by: EMELIA ECHEVERRIA on 01/10/16 1602 Last Taken: Unknown Dose on 06/17/18499 Last Action: Continued on 747 by TIBURCIO ELY MD Amlodipine Besylate (Amlodipine Besylate) 5 Mg Tablet, 5 MG PO HS for blood pressure, (Reported) Entered as Reported by: EMELIA ECHEVERRIA on 01/10/16 1600 Last Taken: Unknown Dose on 06/17/18499 Last Action: Continued on 747 by TIBURCIO ELY MD Atenolol (Atenolol) 50 Mg Tablet, 50 MG PO DAILY for blood pressure, (Reported) Entered as Reported by: PERLA DAMICO on 09/10/17 0951 Last Taken: Unknown Dose on 06/17/18499 Last Action: Continued on 747 by TIBURCIO ELY MD Losartan/Hydrochlorothiazide (Losartan-Hctz 50-12.5 Mg Tab) 1 Each Tablet, 1 TAB PO DAILY for HYPERTENSION, #30 Ref 5 (Reported) Entered as Reported by: AARON PICHARDO on 05/20/18 1424 Last Taken: Unknown Dose on 06/17/18 0500 Last Action: Converted on 747 by TIBURCIO ELY MD Warfarin Sodium (Coumadin) 5 Mg Tablet, 5 MG PO ONCE for for surgery, #30 ( Reported) Entered as Reported by: MARY KAY TAPIAIGHT on 06/17/18 0704 Last Taken: Unknown Dose on 06/16/18 1800 Last Action: HELD on 06/17/18747 by TIBRUCIO ELY MD Patient Instructions Patient Instructions He will be discharged home. Home health care has been set up. We will get him started on outpatient therapy as soon as we are able. The patient will be on Coumadin for a month. He can weight-bear as tolerated. Worrisome signs and symptoms that should prompt a phone call to my office were discussed. We'll see him back in 2 weeks, sooner should a problem arise. TODD ELY II, MD Jul 16, 2018 12:48
== END 2018-06-20 15:11 | disposition home health service (06) | DRG 470 ==
LOC: OPSVCIP 05:59 → 4 NORTH 12:51 → 4 SOUTHEST 06-18 14:35
PROVIDERS: ADMIT Orthopaedic Surgery Sports Medicine; ATTEND Orthopaedic Surgery Sports Medicine
PROC: 0SRD069 Replacement of Left Knee Joint with Oxidized Zirconium on Polyethylene Synthetic Substitute, Cemented, Open Approach (ICD-10-PCS; principal; 2018-06-17 07:30)
DX: M17.12 Unilateral primary osteoarthritis, left knee (principal); Z88.8 Allergy status to other drugs, medicaments and biological substances; Z79.899 Other long term (current) drug therapy
CPT/HCPCS: 36415; 73560; 82962; 85014; 85018; 85610; 85730; 86850; 86900; 86901; 88304; 88311; 99406; A7015; C1713; J0171; J0690; J1030; J1100; J1815; J1885; J2001; J2270; J2405; J2704; J2710; J2795; J3010; J3490; J7030; J7120; Q0162; 97110; 97116; 97150; 97530; 97535; C1769

== ENCOUNTER → 2018-12-24 | Outpatient (CLI) | payer OTHER ==
[~2018-12-24] MED LIST changes: -BUPIVACAINE MPF 0.25% 30 ML VIAL. ONE; +METF500T11 PO; -METF500T9 PO; +WARF-78 PO; -methylPREDNISolone ACETATE 40 MG/ML VIAL. ONE
[2018-12-24 10:15] LABS: BASO # 0.1 x10^3/uL (0.0-0.2); BASO % 1 % (0-3); EOS # 0.2 x10^3/uL (0.0-0.7); EOS % 2 % (0-3); HEMATOCRIT 38.8 % (39.0-53.0); HEMOGLOBIN 13.2 g/dL (13.0-17.5); LYMPH # 1.9 x10^3/uL (1.0-4.8); LYMPH % 20 % (24-48); MEAN CORPUSCULAR HEMOGLOBIN 33 pg (25-35); MEAN CORPUSCULAR HGB CONC 34 g/dL (31-37); MEAN CORPUSCULAR VOLUME 97 fL (79-100); MONO # 0.6 x10^3/uL (0.0-1.1); MONO % 7 % (0-9); NEUT # 6.6 x10^3/uL (1.8-7.7); NEUT % 71 % (31-73); PLATELET COUNT 220 x10^3/uL (140-400); RED CELL DISTRIBUTION WIDTH 16.2 % (11.5-14.5); WHITE BLOOD COUNT 9.3 x10^3/uL (4.0-11.0)
[2018-12-24 10:36] LABS: CALCIUM 9.9 mg/dL (8.5-10.1); CREATININE 1.2 mg/dL (0.7-1.3); GFR 74.5; POTASSIUM 4.4 mmol/L (3.5-5.1); URIC ACID 5.3 mg/dL (3.5-7.2)
[2018-12-24 17:49] LABS: CHOLESTEROL/HDL RATIO 5.4
[2018-12-25 01:12] LABS: HEMOGLOBIN A1C 5.9 % (4.8-5.6)
== END | disposition home or self-care (01) ==
LOC: LAB 09:48
PROVIDERS: ATTEND Family Medicine
DX: D64.9 Anemia, unspecified (principal); M10.9 Gout, unspecified; R73.09 Other abnormal glucose; R79.0 Abnormal level of blood mineral; I10 Essential (primary) hypertension; E78.5 Hyperlipidemia, unspecified; Z85.46 Personal history of malignant neoplasm of prostate
CPT/HCPCS: 36415; 80048; 80061; 82607; 82728; 82746; 83036; 83540; 83550; 83735; 84153; 84550; 85025; 85045; G0103

== ENCOUNTER → 2019-02-07 | Day surgery (SDC) | payer OTHER ==
[~2019-02-07] MED LIST changes: +FERR325T14 PO; +HYDR12.575 PO; +IV RINGERS,LACTATED 1000ML 1,000 ML IV SCH; +LIDOCAINE 2% PF 5 ML VIAL. ONE; +LOSA-73 PO; +PROPOFOL 20 ML IV ONE
[2019-02-07 10:46] VITALS: BP 181/76
== END ==
LOC: ENDOS 09:09
PROVIDERS: ATTEND Internal Medicine Gastroenterology
DX: Z12.11 Encounter for screening for malignant neoplasm of colon (principal); K64.0 First degree hemorrhoids; K63.89 Other specified diseases of intestine; F15.90 Other stimulant use, unspecified, uncomplicated; E66.01 Morbid (severe) obesity due to excess calories; Z68.42 Body mass index [BMI] 45.0-49.9, adult; Z88.6 Allergy status to analgesic agent; Z87.39 Personal history of other diseases of the musculoskeletal system and connective tissue; Z96.60 Presence of unspecified orthopedic joint implant
CPT/HCPCS: 45378; J2001; J2704

== ENCOUNTER 2019-05-14 14:48 | Inpatient (IN) | payer OTHER, MEDICARE ==
[~2019-05-14] VITALS: Ht 182.9 cm; Wt 140.6 kg
[~2019-05-14 14:48] MED LIST changes: -IV RINGERS,LACTATED 1000ML 1,000 ML IV SCH; -LIDOCAINE 2% PF 5 ML VIAL. ONE; -PROPOFOL 20 ML IV ONE
--- NOTE | 2019-05-14 15:34 | PHYS DOC ---
Past Medical History Past Medical History: Cancer, High Cholesterol, Hypertension Additional Past Medical Histor: PROSTATE CA/CHEMO/RADIATION, PROSTATE REMOVED Past Surgical History: Other Additional Past Surgical Histo: R knee scope, lumbar spinal fusion, multiple arthroscopic knee,R SHOULDER Smoking Status: Current Every Day Smoker Additional Information: 1 PPD Alcohol Use: Occasionally Drug Use: None Adult General Chief Complaint Chief Complaint: CHEST PAIN HPI HPI Patient is a 63 year old male who presents with chest pressure that started at 1215. The patient had associated symptoms of lightheaded, L arm tingling. The patient chewed a 324 mg aspirin when symptoms started and symptoms were relieved. He states that he has been having symptoms on exertion over the last several weeks. He denies ever having a cardiac cath or stent. He states he has seen Dr. Fonseca before. Review of Systems Review of Systems Constitutional: Denies fever or chills [] Eyes: Denies change in visual acuity, redness, or eye pain [] HENT: Denies nasal congestion or sore throat [] Respiratory: Denies cough or shortness of breath [] Cardiovascular: No additional information not addressed in HPI [] GI: Denies abdominal pain, nausea, vomiting, bloody stools or diarrhea [] : Denies dysuria or hematuria [] Musculoskeletal: Denies back pain or joint pain [] Integument: Denies rash or skin lesions [] Neurologic: Reports L arm tingling and lightheaded. Denies headache, focal weakness Endocrine: Denies polyuria or polydipsia [] Complete systems were reviewed and found to be within normal limits, except as documented in this note. Current Medications Current Medications Current Medications Medications (Trade) Dose Ordered Sig/Dominic Start Time Stop Time Status Last Admin Dose Admin Acetaminophen (Tylenol) 650 mg PRN Q4HRS PRN 05/14/19 18:00 Albuterol Sulfate (Ventolin Neb Soln) 2.5 mg PRN Q4HRS PRN 05/14/19 18:00 Allopurinol (Zyloprim) 300 mg DAILY 05/15/19 09:00 Amlodipine Besylate (Norvasc) 5 mg DAILY 05/15/19 09:00 Atenolol (Tenormin) 50 mg DAILY 05/15/19 09:00 Docusate Sodium (Colace) 100 mg PRN BID PRN 05/14/19 18:00 Ferrous Sulfate (Feosol) 325 mg DAILY 05/15/19 09:00 Guaifenesin (Robitussin) 200 mg PRN Q4HRS PRN 05/14/19 18:00 Hydrochlorothiazide (Microzide) 12.5 mg DAILY 05/15/19 09:00 Lorazepam (Ativan) 0.5 mg PRN Q4HRS PRN 05/14/19 18:00 Losartan Potassium (Cozaar) 50 mg DAILY 05/15/19 09:00 Ondansetron HCl (Zofran) 4 mg PRN Q4HRS PRN 05/14/19 18:00 Allergies Allergies Allergies Coded Allergies Type Severity Reaction Last Updated Verified morphine Adverse Reaction Intermediate HALLUCINATIONS 02/07/19 Yes Physical Exam Physical Exam Constitutional: Well developed, well nourished, no acute distress, non-toxic appearance. [] HENT: Normocephalic, atraumatic, bilateral external ears normal, oropharynx moist, no oral exudates, nose normal. [] Eyes: PERRLA, EOMI, conjunctiva normal, no discharge. [] Neck: Normal range of motion, no tenderness, supple, no stridor. [] Cardiovascular:Heart rate regular rhythm, no murmur [] Lungs & Thorax: Bilateral breath sounds clear to auscultation [] Abdomen: Bowel sounds normal, soft, no tenderness, no masses, no pulsatile masses. [] Skin: Warm, dry, no erythema, no rash. [] Back: No tenderness, no CVA tenderness. [] Extremities: No tenderness, no cyanosis, no clubbing, ROM intact, no edema. [] Neurologic: Alert and oriented X 3, normal motor function, normal sensory function, no focal deficits noted. [] Psychologic: Affect normal, judgement normal, mood normal. [] Current Patient Data Vital Signs Vital Signs Date Time Temp Pulse Resp B/P (MAP) Pulse Ox O2 Delivery O2 Flow Rate FiO2 05/14/19 16:31 64 16 153/93 (113) 98 Room Air 05/14/19 15:03 98.3 98.3 Lab Values Laboratory Tests Test 05/14/19 15:18 05/14/19 16:20 White Blood Count 7.5 x10^3/uL (4.0-11.0) Red Blood Count 4.02 x10^6/uL (4.30-5.70) L Hemoglobin 13.1 g/dL (13.0-17.5) Hematocrit 39.9 % (39.0-53.0) Mean Corpuscular Volume 99 fL (79-100) Mean Corpuscular Hemoglobin 33 pg (25-35) Mean Corpuscular Hemoglobin Concent 33 g/dL (31-37) Red Cell Distribution Width 15.6 % (11.5-14.5) H Platelet Count 241 x10^3/uL (140-400) Neutrophils (%) (Auto) 64 % (31-73) Lymphocytes (%) (Auto) 25 % (24-48) Monocytes (%) (Auto) 8 % (0-9) Eosinophils (%) (Auto) 2 % (0-3) Basophils (%) (Auto) 1 % (0-3) Neutrophils # (Auto) 4.8 x10^3/uL (1.8-7.7) Lymphocytes # (Auto) 1.9 x10^3/uL (1.0-4.8) Monocytes # (Auto) 0.6 x10^3/uL (0.0-1.1) Eosinophils # (Auto) 0.1 x10^3/uL (0.0-0.7) Basophils # (Auto) 0.1 x10^3/uL (0.0-0.2) Prothrombin Time 12.5 SEC (11.7-14.0) Prothrombin Time INR 1.0 (0.8-1.1) Activated Partial Thromboplast Time 30 SEC (24-38) Sodium Level 143 mmol/L (136-145) Potassium Level 4.2 mmol/L (3.5-5.1) Chloride Level 108 mmol/L (98-107) H Carbon Dioxide Level 28 mmol/L (21-32) Anion Gap 7 (6-14) Blood Urea Nitrogen 14 mg/dL (8-26) Creatinine 1.0 mg/dL (0.7-1.3) Estimated GFR (Cockcroft-Gault) 91.9 BUN/Creatinine Ratio 14 (6-20) Glucose Level 88 mg/dL (70-99) Calcium Level 9.2 mg/dL (8.5-10.1) Magnesium Level 1.8 mg/dL (1.8-2.4) Total Bilirubin 0.4 mg/dL (0.2-1.0) Aspartate Amino Transferase (AST) 19 U/L (15-37) Alanine Aminotransferase (ALT) 30 U/L (16-63) Alkaline Phosphatase 95 U/L (46-116) Creatine Kinase 251 U/L (39-308) Creatine Kinase MB (Mass) 3.5 ng/mL (0.0-3.6) Creatine Kinase MB Relative Index 1.4 % (0-4) Troponin I Quantitative < 0.017 ng/mL (0.000-0.055) Total Protein 6.7 g/dL (6.4-8.2) Albumin 3.6 g/dL (3.4-5.0) Albumin/Globulin Ratio 1.2 (1.0-1.7) Laboratory Tests 05/14/19 15:18 Laboratory Tests 05/14/19 16:20 EKG EKG EKG interpreted by Dr. Crane Sinus rate of 72. Radiology/Procedures Radiology/Procedures [] Course & Med Decision Making Course & Med Decision Making Pertinent Labs and Imaging studies reviewed. (See chart for details) Will get EKG, labs, and chest x-ray. Patient has already had aspirin. Labs were unremarkable. Discussed with Dr. Cleveland who agrees to admission. Will trend troponins and consult cardiology. Dragon Disclaimer Dragon Disclaimer This electronic medical record was generated, in whole or in part, using a voice recognition dictation system. Departure Departure Impression: Primary Impression: Chest pain Disposition: ADMITTED INPATIENT Admitting Physician: HIMS Condition: GUARDED Referrals: SEN JEFFRIES MD (PCP) The HEART Score for CP Pts HEART Score for Chest Pain: HEART Score for Chest Pain Response (Comments) Value History Highly Suspicious 2 ECG Normal 0 Age >45 - < 65 1 Risk Factors >3 Risk Factors or Hx CAD 2 Troponin < Normal Limit 0 Total 5 Risk Factors: Risk Factors: DM, Current or recent (<one month) smoker, HTN, HLP, family history of CAD, obesity. Risk Scores: Score 0 - 3: 2.5% MACE over next 6 weeks - Discharge Home Score 4 - 6: 20.3% MACE over next 6 weeks - Admit for Clinical Observation Score 7 - 10: 72.7% MACE over next 6 weeks - Early Invasive Strategies Problem Qualifiers Primary Impression: Chest pain Chest pain type: chest pain due to myocardial ischemia Ischemic chest pain type: unstable angina pectoris Qualified Codes: I20.0 - Unstable angina SEN CROCKETT APRN May 14, 2019 15:34
[2019-05-14 15:55] LABS: BASO # 0.1 x10^3/uL (0.0-0.2); BASO % 1 % (0-3); EOS # 0.1 x10^3/uL (0.0-0.7); EOS % 2 % (0-3); HEMATOCRIT 39.9 % (39.0-53.0); HEMOGLOBIN 13.1 g/dL (13.0-17.5); LYMPH # 1.9 x10^3/uL (1.0-4.8); LYMPH % 25 % (24-48); MEAN CORPUSCULAR HEMOGLOBIN 33 pg (25-35); MEAN CORPUSCULAR HGB CONC 33 g/dL (31-37); MEAN CORPUSCULAR VOLUME 99 fL (79-100); MONO # 0.6 x10^3/uL (0.0-1.1); MONO % 8 % (0-9); NEUT # 4.8 x10^3/uL (1.8-7.7); NEUT % 64 % (31-73); PLATELET COUNT 241 x10^3/uL (140-400); RED BLOOD COUNT 4.02 x10^6/uL (4.30-5.70); RED CELL DISTRIBUTION WIDTH 15.6 % (11.5-14.5); WHITE BLOOD COUNT 7.5 x10^3/uL (4.0-11.0)
[2019-05-14 16:08] LABS: PROTHROMBIN TIME PATIENT 12.5 SEC (11.7-14.0)
[2019-05-14 16:47] LABS: CALCIUM 9.2 mg/dL (8.5-10.1); GFR 91.9; POTASSIUM 4.2 mmol/L (3.5-5.1)
[2019-05-14 16:53] LABS: ALBUMIN 3.6 g/dL (3.4-5.0); ALBUMIN/GLOBULIN RATIO 1.2 (1.0-1.7); MAGNESIUM 1.8 mg/dL (1.8-2.4); TOTAL BILIRUBIN 0.4 mg/dL (0.2-1.0); TOTAL PROTEIN 6.7 g/dL (6.4-8.2)
[2019-05-14] MEDS ORDERED: LORazepam 0.5 MG TABLET PO PRN (18:00)
[2019-05-14] MEDS ORDERED: ONDANSETRON PF 4 MG/2 ML VIAL. IV PRN ×2 (18:00→18:15)
[2019-05-14] MEDS ORDERED: ALBUTEROL SULFATE 2.5 MG/3 ML NEBU. NEB PRN (18:00)
[2019-05-14] MEDS ORDERED: ACETAMINOPHEN 325 MG TABLET. PO PRN (18:00)
[2019-05-14] MEDS ORDERED: DOCUSATE SODIUM 100 MG CAPSULE. PO PRN (18:00)
[2019-05-14] MEDS ORDERED: guaiFENesin ORAL 200 MG/10 ML LIQUID. PO PRN (18:00)
[2019-05-14] MEDS ORDERED: fentaNYL PF VIAL 100 MCG/2 ML VIAL IV PRN (18:15)
--- NOTE | 2019-05-14 18:52 | RAD ---
PA and lateral chest radiographs 05/14/2019 CLINICAL HISTORY: Chest pain. PA and lateral digital radiographs of the chest were obtained. Comparison study is dated September 02, 2017. The cardiac silhouette is normal in size. The thoracic aorta is mildly tortuous. Atherosclerotic calcification of the thoracic aorta is seen. No acute pulmonary infiltrate is noted. No pneumothorax or pleural effusion is seen. Degenerative changes are seen involving the thoracic spine. IMPRESSION: No acute abnormality is seen. Electronically signed by: Honorio Pacheco MD (05/14/2019 3:31 PM) [id number]
--- NOTE | 2019-05-14 18:52 | EKG ---
[facility] [address] [place] [address] Test Date: 2019-05-14 Test Time: 15:06:42 Pat Name: MIO CAMPOVERDE Department: Room: Gender: M [employer] Care Manager: : 1955 Requested By: STAFF NON Order Number: [id number] Reading MD: Measurements Intervals Ocate Rate: 72 P: [place]: QRS: 36 QRSD: 136 T: 13 QT: 392 QTc: 435 Interpretive Statements ATRIAL FLUTTER RIGHT BUNDLE BRANCH BLOCK ABNORMAL ECG Compared to ECG 12/03/2017 12:20:10 Sinus rhythm no longer present
[2019-05-14 20:10] VITALS: BP 185/95
[2019-05-14 20:52] VITALS: BP 160/70
[2019-05-14] MEDS ORDERED: LABETALOL 20 MG/4 ML DISP.SYRIN. IVP PRN (21:30)
[2019-05-14 22:37] VITALS: BP 161/82
--- NOTE | 2019-05-14 23:00 | PDOC1 ---
History and Physical Date of Admission Date of Admission 05/14/2019 Identification/Chief Complaint Chief Complaint My head was tight Source Source: Chart review, Patient History of Present Illness History of Present Illness Patient is a 63 year old gentleman who has a past medical history of esssential hypertension, obstructive sleep apnea, dyslipidemia and prostate cancer. Patient this morning experienced head pressure and also tingling over his left fingers. The patient had a sharp sensation over his left shoulder lasted seconds he denied any slurred speech no blurred patient no changes in his mental status either. The patient was encouraged to come to the emergency department due to his symptoms by his daughter. Patient was found to be hypertensive upon admission. Due to the shoulder complain we were asked to admit the patient for chest pain rule out workup. Nevertheless patient does not have a history consistent with angina-type of symptoms and his symptoms are probably more related to his uncontrolled hypertension. When asked further the patient seems to have had dietary transgressions over the course of the weekend and while watching the Super Bowl. Excess salt has been reported and he does not seem to be quite adherent with his antihypertensive medication either. Patient follows up with Dr. Andrea in the outpatient setting. At the present time the patient is not complaining of chest discomfort he does not give a history of angina. He did take an aspirin 325 earlier but mostly for his headache. We will admit for further treatment plan of care Detail to the patient CONCERNS address to the best of my abilities Past Medical History Cardiovascular: HTN, Hyperlipidemia Pulmonary: Other (obstructive sleep apnea) Heme/Onc: Cancer Current Problem List Problem List Problems Medical Problems: (1) Chest pain Status: Acute Current Medications Current Medications Current Medications Medications (Trade) Dose Ordered Sig/Dominic Start Time Stop Time Status Last Admin Dose Admin Acetaminophen (Tylenol) 650 mg PRN Q4HRS PRN 05/14/19 18:00 Albuterol Sulfate (Ventolin Neb Soln) 2.5 mg PRN Q4HRS PRN 05/14/19 18:00 Allopurinol (Zyloprim) 300 mg DAILY 05/15/19 09:00 Amlodipine Besylate (Norvasc) 5 mg DAILY 05/15/19 09:00 Atenolol (Tenormin) 50 mg DAILY 05/15/19 09:00 Docusate Sodium (Colace) 100 mg PRN BID PRN 2/5/20 18:00 Fentanyl Citrate (Fentanyl 2ml Vial) 50 mcg PRN Q1HR PRN 05/14/19 18:15 05/15/19 18:14 Ferrous Sulfate (Feosol) 325 mg DAILY 05/15/19 09:00 Guaifenesin (Robitussin) 200 mg PRN Q4HRS PRN 05/14/19 18:00 Hydrochlorothiazide (Microzide) 12.5 mg DAILY 05/15/19 09:00 Labetalol HCl (Normodyne Iv Push) 10 mg PRN Q2HR PRN 05/14/19 21:30 Lorazepam (Ativan) 0.5 mg PRN Q4HRS PRN 05/14/19 18:00 Losartan Potassium (Cozaar) 50 mg DAILY 05/15/19 09:00 Ondansetron HCl (Zofran) 4 mg PRN Q8HRS PRN 05/14/19 18:15 05/15/19 18:14 Allergies Allergies Allergies Coded Allergies Type Severity Reaction Last Updated Verified morphine Adverse Reaction Intermediate HALLUCINATIONS 02/07/19 Yes ROS Review of System CONSTITUTIONAL: No fever or chills EYES: No recent changes SKIN: No rash or itching CARDIOVASCULAR: No chest pain, syncope, palpitations, or edema RESPIRATORY: No SOB or cough GASTROINTESTINAL: No nausea, vomiting or abdominal pain NEUROLOGICAL: No headaches or weakness ENDOCRINE: No cold or heat intolerance GENITOURINARY: No urgency or frequency of urination MUSCULOSKELETAL: No back pain or joint pain LYMPHATICS: No enlarged lymph nodes PSYCHIATRIC: No anxiety or depression Physical Exam Physical Exam GEN.: No apparent distress. Alert and oriented. HEENT: Head is normocephalic, atraumatic NECK: Supple. LUNGS: Clear to auscultation. HEART: RRR, S1, S2 present. Peripheral pulses intact ABDOMEN: Soft, nontender. Positive bowel sounds. EXTREMITIES: Without any cyanosis. NEUROLOGIC: Normal speech, normal tone PSYCHIATRIC: Normal affect, normal mood. SKIN: No ulcerations Vitals Vitals Vital Signs Date Time Temp Pulse Resp B/P (MAP) Pulse Ox O2 Delivery O2 Flow Rate FiO2 05/14/19 20:52 88 160/70 (100) 05/14/19 20:10 98.0 16 97 Room Air 98.0 Labs Labs Laboratory Tests Test 05/14/19 15:18 05/14/19 16:20 05/14/19 19:20 05/14/19 21:45 White Blood Count 7.5 x10^3/uL (4.0-11.0) Red Blood Count 4.02 x10^6/uL (4.30-5.70) Hemoglobin 13.1 g/dL (13.0-17.5) Hematocrit 39.9 % (39.0-53.0) Mean Corpuscular Volume 99 fL (79-100) Mean Corpuscular Hemoglobin 33 pg (25-35) Mean Corpuscular Hemoglobin Concent 33 g/dL (31-37) Red Cell Distribution Width 15.6 % (11.5-14.5) Platelet Count 241 x10^3/uL (140-400) Neutrophils (%) (Auto) 64 % (31-73) Lymphocytes (%) (Auto) 25 % (24-48) Monocytes (%) (Auto) 8 % (0-9) Eosinophils (%) (Auto) 2 % (0-3) Basophils (%) (Auto) 1 % (0-3) Neutrophils # (Auto) 4.8 x10^3/uL (1.8-7.7) Lymphocytes # (Auto) 1.9 x10^3/uL (1.0-4.8) Monocytes # (Auto) 0.6 x10^3/uL (0.0-1.1) Eosinophils # (Auto) 0.1 x10^3/uL (0.0-0.7) Basophils # (Auto) 0.1 x10^3/uL (0.0-0.2) Prothrombin Time 12.5 SEC (11.7-14.0) Prothromb Time International Ratio 1.0 (0.8-1.1) Activated Partial Thromboplast Time 30 SEC (24-38) Sodium Level 143 mmol/L (136-145) Potassium Level 4.2 mmol/L (3.5-5.1) Chloride Level 108 mmol/L (98-107) Carbon Dioxide Level 28 mmol/L (21-32) Anion Gap 7 (6-14) Blood Urea Nitrogen 14 mg/dL (8-26) Creatinine 1.0 mg/dL (0.7-1.3) Estimated GFR (Cockcroft-Gault) 91.9 BUN/Creatinine Ratio 14 (6-20) Glucose Level 88 mg/dL (70-99) Calcium Level 9.2 mg/dL (8.5-10.1) Magnesium Level 1.8 mg/dL (1.8-2.4) Total Bilirubin 0.4 mg/dL (0.2-1.0) Aspartate Amino Transf (AST/SGOT) 19 U/L (15-37) Alanine Aminotransferase (ALT/SGPT) 30 U/L (16-63) Alkaline Phosphatase 95 U/L (46-116) Creatine Kinase 251 U/L (39-308) Creatine Kinase MB (Mass) 3.5 ng/mL (0.0-3.6) Creatine Kinase MB Relative Index 1.4 % (0-4) Troponin I Quantitative < 0.017 ng/mL (0.000-0.055) < 0.017 ng/mL (0.000-0.055) < 0.017 ng/mL (0.000-0.055) Total Protein 6.7 g/dL (6.4-8.2) Albumin 3.6 g/dL (3.4-5.0) Albumin/Globulin Ratio 1.2 (1.0-1.7) Laboratory Tests Test 05/14/19 15:18 05/14/19 16:20 05/14/19 19:20 05/14/19 21:45 White Blood Count 7.5 x10^3/uL (4.0-11.0) Red Blood Count 4.02 x10^6/uL (4.30-5.70) Hemoglobin 13.1 g/dL (13.0-17.5) Hematocrit 39.9 % (39.0-53.0) Mean Corpuscular Volume 99 fL (79-100) Mean Corpuscular Hemoglobin 33 pg (25-35) Mean Corpuscular Hemoglobin Concent 33 g/dL (31-37) Red Cell Distribution Width 15.6 % (11.5-14.5) Platelet Count 241 x10^3/uL (140-400) Neutrophils (%) (Auto) 64 % (31-73) Lymphocytes (%) (Auto) 25 % (24-48) Monocytes (%) (Auto) 8 % (0-9) Eosinophils (%) (Auto) 2 % (0-3) Basophils (%) (Auto) 1 % (0-3) Neutrophils # (Auto) 4.8 x10^3/uL (1.8-7.7) Lymphocytes # (Auto) 1.9 x10^3/uL (1.0-4.8) Monocytes # (Auto) 0.6 x10^3/uL (0.0-1.1) Eosinophils # (Auto) 0.1 x10^3/uL (0.0-0.7) Basophils # (Auto) 0.1 x10^3/uL (0.0-0.2) Prothrombin Time 12.5 SEC (11.7-14.0) Prothromb Time International Ratio 1.0 (0.8-1.1) Activated Partial Thromboplast Time 30 SEC (24-38) Sodium Level 143 mmol/L (136-145) Potassium Level 4.2 mmol/L (3.5-5.1) Chloride Level 108 mmol/L (98-107) Carbon Dioxide Level 28 mmol/L (21-32) Anion Gap 7 (6-14) Blood Urea Nitrogen 14 mg/dL (8-26) Creatinine 1.0 mg/dL (0.7-1.3) Estimated GFR (Cockcroft-Gault) 91.9 BUN/Creatinine Ratio 14 (6-20) Glucose Level 88 mg/dL (70-99) Calcium Level 9.2 mg/dL (8.5-10.1) Magnesium Level 1.8 mg/dL (1.8-2.4) Total Bilirubin 0.4 mg/dL (0.2-1.0) Aspartate Amino Transf (AST/SGOT) 19 U/L (15-37) Alanine Aminotransferase (ALT/SGPT) 30 U/L (16-63) Alkaline Phosphatase 95 U/L (46-116) Creatine Kinase 251 U/L (39-308) Creatine Kinase MB (Mass) 3.5 ng/mL (0.0-3.6) Creatine Kinase MB Relative Index 1.4 % (0-4) Troponin I Quantitative < 0.017 ng/mL (0.000-0.055) < 0.017 ng/mL (0.000-0.055) < 0.017 ng/mL (0.000-0.055) Total Protein 6.7 g/dL (6.4-8.2) Albumin 3.6 g/dL (3.4-5.0) Albumin/Globulin Ratio 1.2 (1.0-1.7) VTE Prophylaxis Ordered VTE Prophylaxis Devices: Yes VTE Pharmacological Prophylaxi: No Assessment/Plan Assessment/Plan Hypertensive urgency history fo dyslpidemia history of obstructive sleep apnea not controlled, patient has not filled the prescription for CPAP he has Plan: trend troponin BP control reassess in the am further recommendations based on clinical course. DVT prophylaxis: CAROLYN ANDRADE MD May 14, 2019 23:00
[2019-05-14 23:35] VITALS: BP 147/77
[2019-05-15 03:00] VITALS: BP 156/86
[2019-05-15 07:00] VITALS: BP 196/106
[2019-05-15] MEDS ORDERED: FERROUS SULFATE 325 MG TABLET. PO SCH (09:00)
[2019-05-15] MEDS ORDERED: FUROSEMIDE 40 MG/4 ML VIAL. IVP SCH (09:00)
[2019-05-15] MEDS ORDERED: amLODIPine BESYLATE 5 MG TABLET PO SCH (09:00)
[2019-05-15] MEDS ORDERED: LOSARTAN POTASSIUM 50 MG TABLET. PO SCH (09:00)
[2019-05-15] MEDS ORDERED: ALLOPURINOL 300 MG TABLET. PO SCH (09:00)
[2019-05-15] MEDS ORDERED: hydroCHLOROthiazide 12.5 MG CAPSULE PO SCH (09:00)
[2019-05-15] MEDS ORDERED: ATENOLOL 50 MG TABLET. PO SCH (09:00)
--- NOTE | 2019-05-15 10:12 | PDOC2 ---
CARDIAC CONSULT DATE OF CONSULT Date of Consult DATE: 05/15/19 TIME: 10:02 REASON FOR CONSULT Reason for Consult: Chest pain REFERRING PHYSICIAN Referring Physician: Lance SOURCE Source: Chart review, Patient HISTORY OF PRESENT ILLNESS HISTORY OF PRESENT ILLNESS This is a pleasant 63 yo male admitted for complains of chest pain.and headache. Reports that sometimes he gets this sharp left chest pain that radiates to his left arm. No recent falls or injury. No exertional dyspnea and no exertional CP. No CP with coitus. Reports no palpitations or jaw discomfort. No n/v. He does however noted with high BP and does not check his BP at home despite multiple meds. He also has been having intermittent throbbing NEWBERRY on both sides but no focal neuro symptoms. No decrease in activity tolerance but + for midday tiredness, NEWBERRY in morning. Positive for tobaccoism. He is compliant with his meds. He is however not compliant with diet. Has not gain much wt. No recent long distance travel. No recent respiratory infection and negative for heartburn. PAST MEDICAL HISTORY Cardiovascular: HTN, Hyperlipidemia Pulmonary: Other (KJ) CENTRAL NERVOUS SYSTEM: Other (No pertinent history) GI: No pertinent hx Heme/Onc: No pertinent hx Psych: No pertinent hx Musculoskeletal: Osteoarthritis Rheumatologic: Gout ENT: No pertinent hx Renal/: Bladder Ca. Endocrine: Other (metabolic syndrome) Dermatology: No pertinent hx PAST SURGICAL HISTORY Past Surgical History: Arthroscopy (knee), Total knee replacement (right), Other (lower back fusion; prostatectomy) FAMILY HISTORY Family History: Stroke (mother) SOCIAL HISTORY Smoke: <1 pack per day ALCOHOL: occassional Drugs: None Lives: with Family CURRENT MEDICATIONS CURRENT MEDICATIONS Current Medications Medications (Trade) Dose Ordered Sig/Dominic Route PRN Reason Start Time Stop Time Status Last Admin Dose Admin Allopurinol (Zyloprim) 300 mg DAILY PO 05/15/19 09:00 05/15/19 09:10 Amlodipine Besylate (Norvasc) 5 mg DAILY PO 05/15/19 09:00 05/15/19 09:12 Atenolol (Tenormin) 50 mg DAILY PO 05/15/19 09:00 05/15/19 09:11 Ferrous Sulfate (Feosol) 325 mg DAILY PO 05/15/19 09:00 05/15/19 09:10 Hydrochlorothiazide (Microzide) 12.5 mg DAILY PO 2/6/20 09:00 05/15/19 09:10 Losartan Potassium (Cozaar) 50 mg DAILY PO 05/15/19 09:00 05/15/19 09:13 Labetalol HCl (Normodyne Iv Push) 10 mg PRN Q2HR PRN IVP HYPERTENSION 05/14/19 21:30 05/14/19 23:27 Furosemide (Lasix) 40 mg [id number] IVP 05/15/19 09:00 05/15/19 09:14 ALLERGIES ALLERGIES: Coded Allergies: morphine (Verified Adverse Reaction, Intermediate, HALLUCINATIONS, 02/07/19) ROS Review of System 14 point ROS evaluated with pertinent positives noted per HPI PHYSICAL EXAM General: Alert, Oriented X3, Cooperative, No acute distress HEENT: Atraumatic, Mucous membr. moist/pink Lungs: Clear to auscultation, Normal air movement Heart: Regular rate (SR), Normal S1, Normal S2, No murmurs Abdomen: Soft, No tenderness Extremities: No cyanosis, No edema Skin: No breakdown, No significant lesion Neuro: Normal speech, Sensation intact Psych/Mental Status: Mental status NL, Mood NL MUSCULOSKELETAL: Osteoarthritic changes both hands VITALS/I&O VITALS/I&O: Vital Signs Date Time Temp Pulse Resp B/P (MAP) Pulse Ox O2 Delivery O2 Flow Rate FiO2 05/15/19 09:13 76 196/106 05/15/19 07:00 98.5 16 97 Room Air 98.5 I & O 05/14/19 05/14/19 05/15/19 15:00 23:00 07:00 Intake Total 0 ml 0 ml Balance 0 ml 0 ml LABS Lab: Laboratory Tests Test 05/14/19 15:18 05/14/19 16:20 05/14/19 19:20 05/14/19 21:45 White Blood Count 7.5 x10^3/uL (4.0-11.0) Red Blood Count 4.02 x10^6/uL (4.30-5.70) L Hemoglobin 13.1 g/dL (13.0-17.5) Hematocrit 39.9 % (39.0-53.0) Mean Corpuscular Volume 99 fL (79-100) Mean Corpuscular Hemoglobin 33 pg (25-35) Mean Corpuscular Hemoglobin Concent 33 g/dL (31-37) Red Cell Distribution Width 15.6 % (11.5-14.5) H Platelet Count 241 x10^3/uL (140-400) Neutrophils (%) (Auto) 64 % (31-73) Lymphocytes (%) (Auto) 25 % (24-48) Monocytes (%) (Auto) 8 % (0-9) Eosinophils (%) (Auto) 2 % (0-3) Basophils (%) (Auto) 1 % (0-3) Neutrophils # (Auto) 4.8 x10^3/uL (1.8-7.7) Lymphocytes # (Auto) 1.9 x10^3/uL (1.0-4.8) Monocytes # (Auto) 0.6 x10^3/uL (0.0-1.1) Eosinophils # (Auto) 0.1 x10^3/uL (0.0-0.7) Basophils # (Auto) 0.1 x10^3/uL (0.0-0.2) Prothrombin Time 12.5 SEC (11.7-14.0) Prothrombin Time INR 1.0 (0.8-1.1) Activated Partial Thromboplast Time 30 SEC (24-38) Sodium Level 143 mmol/L (136-145) Potassium Level 4.2 mmol/L (3.5-5.1) Chloride Level 108 mmol/L (98-107) H Carbon Dioxide Level 28 mmol/L (21-32) Anion Gap 7 (6-14) Blood Urea Nitrogen 14 mg/dL (8-26) Creatinine 1.0 mg/dL (0.7-1.3) Estimated GFR (Cockcroft-Gault) 91.9 BUN/Creatinine Ratio 14 (6-20) Glucose Level 88 mg/dL (70-99) Calcium Level 9.2 mg/dL (8.5-10.1) Magnesium Level 1.8 mg/dL (1.8-2.4) Total Bilirubin 0.4 mg/dL (0.2-1.0) Aspartate Amino Transferase (AST) 19 U/L (15-37) Alanine Aminotransferase (ALT) 30 U/L (16-63) Alkaline Phosphatase 95 U/L (46-116) Creatine Kinase 251 U/L (39-308) Creatine Kinase MB (Mass) 3.5 ng/mL (0.0-3.6) Creatine Kinase MB Relative Index 1.4 % (0-4) Troponin I Quantitative < 0.017 ng/mL (0.000-0.055) < 0.017 ng/mL (0.000-0.055) < 0.017 ng/mL (0.000-0.055) Total Protein 6.7 g/dL (6.4-8.2) Albumin 3.6 g/dL (3.4-5.0) Albumin/Globulin Ratio 1.2 (1.0-1.7) Laboratory Tests 05/14/19 15:18 Laboratory Tests 05/14/19 16:20 STRESS TEST STRESS TEST Conclusion 1. Regadenoson cardioisotope stress test showed diaphragmatic attenuation artifact without any evidence of ischemia or infarct. 2. Normal left ventricular systolic function with ejection fraction calculated at 58%. 3. Low risk for cardiac events. DATE: 12/20/17 1051 ASSESSMENT/PLAN ASSESSMENT/PLAN 1. Atypical chest pain: potentially related to uncontrolled HTN 2. Accelerated HTN: high salt diet and KJ are contributing 3. HLP 4. Morbid obesity 5. KJ: was on CPAP few yrs back. 6. Chronic RBBB 7. NEWBERRY: due to high BP 8. Tobaccoism Recommendations 1. TSH, lipids continue home BP meds. Increase norvasc. Uptitrate BP meds further as an outpt. DC lasix. Start on statin 2. TTE 3. Dietitian consult for DASH diet. Wt loss 4. Plan for outpt stress test, follow up in 4 weeks. 5. Discussed HBPM bid x1 and call office about result or if BP remains persistently high per set parameters. 6. Smoking cessation. Will need outpt KJ workup, Anticipate DC this afternoon pending BP trend. TANG WILLETT SAFE DEPOSIT ATTENDANT May 15, 2019 10:12
[2019-05-15 11:00] VITALS: BP 157/90
[2019-05-15 11:03] LABS: CHOLESTEROL/HDL RATIO 5.5
--- NOTE | 2019-05-15 12:21 | CARD ---
MR#: [id number] Date of Study: 05/15/2019 Ordering Physician: TANG WILLETT, Referring Physician: TANG WILLETT, Tech: Ra Sylvester RDCS APPROVED REPORT EXAM: Two-dimensional and M-mode echocardiogram with Doppler and color Doppler. Other Information Quality : AverageHR: 65bpm Rhythm : NSR INDICATION Chest Pain RISK FACTORS Hypertension Hyperlipidemia Smoking 2D DIMENSIONS RVDd4.2 (2.9-3.5cm)IVSd0.8 (0.7-1.1cm) Aortic Root(2D)2.9 (2.0-3.7cm)LVDd5.5 (3.9-5.9cm) LVOT Diameter2.1 (1.8-2.4cm)PWd1.0 (0.7-1.1cm) LVDs3.8 (2.5-4.0cm)FS (%) 30.8 % SV83.5 mlLVEF(%)57.8 (>50%) Aortic Valve AoV Peak Roberto.128.5cm/Vianca Peak GR.6.6mmHg LVOT Peak Roberto.124.3cm/sAVA (VMAX)3.38cm2 Mitral Valve MV E Pyplxgig53.0cm/sMV DECEL [id number] MV A Kokmzsmg92.6cm/sE/A Ratio0.9 Pulmonary Valve PV Peak Ojlgnwoe55.1cm/s Tricuspid Valve RAP [id number] Pulmonary Vein S1 Ihhhyjog73.7cm/sD2 Otpjzcnz41.0cm/s PVa [id number] LEFT VENTRICLE The left ventricle is upper limits of normal size. There is normal left ventricular wall thickness. T he left ventricular systolic function is normal. The Ejection Fraction is 60-65%. There is normal LV segmental wall motion. Transmitral Doppler flow pattern is Grade I-abnormal relaxation pattern. There is no ventricular septal defect visualized. RIGHT VENTRICLE The right ventricle is mildly dilated. The right ventricular systolic function is normal. ATRIA The left atrium is moderately dilated. The right atrium size is normal. The interatrial septum is int act with no evidence for an atrial septal defect or patent foramen ovale as noted on 2-D or Doppler i magevon. AORTIC VALVE The aortic valve is normal in structure and function. Doppler and Color Flow revealed no significant aortic regurgitation. There is no significant aortic valvular stenosis. MITRAL VALVE The mitral valve is normal in structure and function. There is no evidence of mitral valve prolapse. There is no mitral valve stenosis. Doppler and Color Flow revealed no mitral valve regurgitation note d. TRICUSPID VALVE The tricuspid valve is normal in structure and function. Doppler and Color Flow revealed no tricuspid valve regurgitation noted. Unable to assess PA pressure. There is no tricuspid valve stenosis. PULMONIC VALVE The pulmonic valve is not well visualized. Doppler and Color Flow revealed no pulmonic valvular regur gitation. There is no pulmonic valvular stenosis. GREAT VESSELS The aortic root is normal in size. The ascending aorta is normal in size. The IVC is normal in size a nd collapses >50% with inspiration. PERICARDIAL EFFUSION There is no pleural effusion. There is no evidence of significant pericardial effusion. Critical Notification Critical Value: No <Conclusion> The left ventricular systolic function is normal. The Ejection Fraction is 60-65%. There is normal LV segmental wall motion. There is no evidence of significant pericardial effusion. Signed by : Gunner Emery, Electronically Approved : 05/15/2019 12:21:11
[2019-05-15 13:00] VITALS: BP 145/81
--- NOTE | 2019-05-15 13:33 | NUR ---
SS following for discharge planning. SS reviewed pt chart. Pt is from home with spouse and is currently on room air. SS will continue to follow for discharge planning.
--- NOTE | 2019-05-15 14:04 | PDOC3 ---
Discharge Summary Visit Information Date of Admission: May 14, 2019 Date of Discharge: May 15, 2019 Admitting Diagnosis Comment: Hypertensive urgency history fo dyslpidemia history of obstructive sleep apnea not controlled, patient has not filled the prescription for CPAP he has Final Diagnosis Problems Medical Problems: (1) Chest pain most likely related to hypertensive urgency currently resolved Status: Acute dyslipidemia Morbid obesity with a BMI of 42 Obstructive sleep apnea with non compliance of CPAP Tobacco abuse counseling done Brief Hospital Course Allergies Allergies Coded Allergies Type Severity Reaction Last Updated Verified morphine Adverse Reaction Intermediate HALLUCINATIONS 02/07/19 Yes Vital Signs Vital Signs Date Time Temp Pulse Resp B/P (MAP) Pulse Ox O2 Delivery O2 Flow Rate FiO2 05/15/19 11:00 98.6 68 16 157/90 (112) 97 Room Air 98.6 Lab Results Laboratory Tests Test 05/14/19 15:18 05/14/19 16:20 05/14/19 19:20 05/14/19 21:45 White Blood Count 7.5 x10^3/uL (4.0-11.0) Red Blood Count 4.02 x10^6/uL (4.30-5.70) Hemoglobin 13.1 g/dL (13.0-17.5) Hematocrit 39.9 % (39.0-53.0) Mean Corpuscular Volume 99 fL (79-100) Mean Corpuscular Hemoglobin 33 pg (25-35) Mean Corpuscular Hemoglobin Concent 33 g/dL (31-37) Red Cell Distribution Width 15.6 % (11.5-14.5) Platelet Count 241 x10^3/uL (140-400) Neutrophils (%) (Auto) 64 % (31-73) Lymphocytes (%) (Auto) 25 % (24-48) Monocytes (%) (Auto) 8 % (0-9) Eosinophils (%) (Auto) 2 % (0-3) Basophils (%) (Auto) 1 % (0-3) Neutrophils # (Auto) 4.8 x10^3/uL (1.8-7.7) Lymphocytes # (Auto) 1.9 x10^3/uL (1.0-4.8) Monocytes # (Auto) 0.6 x10^3/uL (0.0-1.1) Eosinophils # (Auto) 0.1 x10^3/uL (0.0-0.7) Basophils # (Auto) 0.1 x10^3/uL (0.0-0.2) Prothrombin Time 12.5 SEC (11.7-14.0) Prothromb Time International Ratio 1.0 (0.8-1.1) Activated Partial Thromboplast Time 30 SEC (24-38) Sodium Level 143 mmol/L (136-145) Potassium Level 4.2 mmol/L (3.5-5.1) Chloride Level 108 mmol/L (98-107) Carbon Dioxide Level 28 mmol/L (21-32) Anion Gap 7 (6-14) Blood Urea Nitrogen 14 mg/dL (8-26) Creatinine 1.0 mg/dL (0.7-1.3) Estimated GFR (Cockcroft-Gault) 91.9 BUN/Creatinine Ratio 14 (6-20) Glucose Level 88 mg/dL (70-99) Calcium Level 9.2 mg/dL (8.5-10.1) Magnesium Level 1.8 mg/dL (1.8-2.4) Total Bilirubin 0.4 mg/dL (0.2-1.0) Aspartate Amino Transf (AST/SGOT) 19 U/L (15-37) Alanine Aminotransferase (ALT/SGPT) 30 U/L (16-63) Alkaline Phosphatase 95 U/L (46-116) Creatine Kinase 251 U/L (39-308) Creatine Kinase MB (Mass) 3.5 ng/mL (0.0-3.6) Creatine Kinase MB Relative Index 1.4 % (0-4) Troponin I Quantitative < 0.017 ng/mL (0.000-0.055) < 0.017 ng/mL (0.000-0.055) < 0.017 ng/mL (0.000-0.055) Total Protein 6.7 g/dL (6.4-8.2) Albumin 3.6 g/dL (3.4-5.0) Albumin/Globulin Ratio 1.2 (1.0-1.7) Test 05/15/19 10:20 WU-Dim-N-Type Natriuretic Peptide 182 pg/mL (0-124) Triglycerides Level 211 mg/dL (0-150) Cholesterol Level 192 mg/dL (0-200) LDL Cholesterol, Calculated 115 mg/dL (0-100) VLDL Cholesterol, Calculated 42 mg/dL (0-40) Non-HDL Cholesterol Calculated 157 mg/dL (0-129) HDL Cholesterol 35 mg/dL (40-60) Cholesterol/HDL Ratio 5.5 Thyroid Stimulating Hormone (TSH) 0.913 uIU/mL (0.358-3.74) Laboratory Tests Test 05/14/19 15:18 05/14/19 16:20 05/14/19 19:20 05/14/19 21:45 White Blood Count 7.5 x10^3/uL (4.0-11.0) Red Blood Count 4.02 x10^6/uL (4.30-5.70) Hemoglobin 13.1 g/dL (13.0-17.5) Hematocrit 39.9 % (39.0-53.0) Mean Corpuscular Volume 99 fL (79-100) Mean Corpuscular Hemoglobin 33 pg (25-35) Mean Corpuscular Hemoglobin Concent 33 g/dL (31-37) Red Cell Distribution Width 15.6 % (11.5-14.5) Platelet Count 241 x10^3/uL (140-400) Neutrophils (%) (Auto) 64 % (31-73) Lymphocytes (%) (Auto) 25 % (24-48) Monocytes (%) (Auto) 8 % (0-9) Eosinophils (%) (Auto) 2 % (0-3) Basophils (%) (Auto) 1 % (0-3) Neutrophils # (Auto) 4.8 x10^3/uL (1.8-7.7) Lymphocytes # (Auto) 1.9 x10^3/uL (1.0-4.8) Monocytes # (Auto) 0.6 x10^3/uL (0.0-1.1) Eosinophils # (Auto) 0.1 x10^3/uL (0.0-0.7) Basophils # (Auto) 0.1 x10^3/uL (0.0-0.2) Prothrombin Time 12.5 SEC (11.7-14.0) Prothromb Time International Ratio 1.0 (0.8-1.1) Activated Partial Thromboplast Time 30 SEC (24-38) Sodium Level 143 mmol/L (136-145) Potassium Level 4.2 mmol/L (3.5-5.1) Chloride Level 108 mmol/L (98-107) Carbon Dioxide Level 28 mmol/L (21-32) Anion Gap 7 (6-14) Blood Urea Nitrogen 14 mg/dL (8-26) Creatinine 1.0 mg/dL (0.7-1.3) Estimated GFR (Cockcroft-Gault) 91.9 BUN/Creatinine Ratio 14 (6-20) Glucose Level 88 mg/dL (70-99) Calcium Level 9.2 mg/dL (8.5-10.1) Magnesium Level 1.8 mg/dL (1.8-2.4) Total Bilirubin 0.4 mg/dL (0.2-1.0) Aspartate Amino Transf (AST/SGOT) 19 U/L (15-37) Alanine Aminotransferase (ALT/SGPT) 30 U/L (16-63) Alkaline Phosphatase 95 U/L (46-116) Creatine Kinase 251 U/L (39-308) Creatine Kinase MB (Mass) 3.5 ng/mL (0.0-3.6) Creatine Kinase MB Relative Index 1.4 % (0-4) Troponin I Quantitative < 0.017 ng/mL (0.000-0.055) < 0.017 ng/mL (0.000-0.055) < 0.017 ng/mL (0.000-0.055) Total Protein 6.7 g/dL (6.4-8.2) Albumin 3.6 g/dL (3.4-5.0) Albumin/Globulin Ratio 1.2 (1.0-1.7) Test 05/15/19 10:20 BE-Fuv-C-Type Natriuretic Peptide 182 pg/mL (0-124) Triglycerides Level 211 mg/dL (0-150) Cholesterol Level 192 mg/dL (0-200) LDL Cholesterol, Calculated 115 mg/dL (0-100) VLDL Cholesterol, Calculated 42 mg/dL (0-40) Non-HDL Cholesterol Calculated 157 mg/dL (0-129) HDL Cholesterol 35 mg/dL (40-60) Cholesterol/HDL Ratio 5.5 Thyroid Stimulating Hormone (TSH) 0.913 uIU/mL (0.358-3.74) Brief Hospital Course Mr. Cruz is a 63 old male with the above-mentioned diagnoses. He was admitted due to uncontrolled hypertension. The patient was found to have a hypertensive urgency due to dietary transgressions. Patient was seen in consultation by cardiology who recommended an echocardiogram. Results of the echocardiogram were reassuring on top of his 3 sets of negative cardiac enzymes. The patient has a long-standing history of obstructive sleep apnea for which she was prescribed a CPAP machine but he did not fill the prescription and has not used the equipment. I have encourage him to follow-up with his primary care physician noted to reassess this matter and to start using his CPAP machine. Encouraged to quit smoking as well his blood pressure has improved and we will have him also do home blood pressure measuring at home twice a day and contact cardiology office with the results Is in good spirits to be dismissed home will concerns were addressed the best of my abilities, at bedside Assessment Assessment Gen.: well-developed well-nourished in no apparent distress Head: Normal shape atraumatic Eyes: Pupils equal reactive to light and accommodation, normal conjunctivae and lids Ears: Normal shape Nose: Normal shape no trauma Mouth: No exudates of the back of throat no thrush no lesions Neck: Supple no JVD no carotid bruit or lymphadenopathy no thyromegaly Chest: Lungs clear to auscultation with good inspiratory effort no crackles rales or rhonchi Cardiovascular: S1-S2 regular rhythm no murmurs gallops or rubs Abdomen: Bowel sounds present soft nontender no hepatosplenomegaly appreciated sign Extremities: No clubbing no cyanosis no edema peripheral pulses palpated bilaterally Neurological: Alert awake oriented in person time place and situation, cranial nerves II through XII intact, no motor or sensory deficits appreciated Psych: Appropriate mood, cooperative Discharge Information Condition at Discharge: Improved Follow Up: Weeks Disposition/Orders: D/C to Home Scheduled Allopurinol (Allopurinol) 300 Mg Tablet, 300 MG PO DAILY for gout, (Reported) Entered as Reported by: EMELIA ECHEVERRIA on 01/10/16 1602 Last Action: Continued on 05/14/191752 by CAROLYN GUZMÁN MD Amlodipine Besylate (Amlodipine Besylate) 5 Mg Tablet, 5 MG PO DAILY for htn, (Reported) Entered as Reported by: PERLA DAMICO on 03/05/19 1006 Last Action: Continued on 05/14/191752 by CAROLYN GUZMÁN MD Atenolol (Atenolol) 50 Mg Tablet, 50 MG PO DAILY for htn, (Reported) Entered as Reported by: PERLA DAMICO on 03/05/19 1006 Last Action: Continued on 05/14/191752 by CAROLYN GUZMÁN MD Ferrous Sulfate (Ferrous Sulfate) 325 Mg Tablet, 325 MG PO DAILY for anemia, (Reported) Entered as Reported by: JACKIE FU on 02/07/19930 Last Action: Continued on 05/14/191752 by CAROLYN GUZMÁN MD Hydrochlorothiazide (Hydrochlorothiazide Capsule ) 12.5 Mg Capsule, 12.5 MG PO DAILY for DIURETIC, (Reported) Entered as Reported by: JACKIE FU on 02/07/19930 Last Action: Continued on 05/14/191752 by CAROLYN GUZMÁN MD Losartan Potassium (Losartan Potassium) 50 Mg Tablet, 50 MG PO DAILY for HYPE RTENSION, (Reported) Entered as Reported by: JACKIE FU on 02/07/19929 Last Action: Continued on 05/14/191752 by MD RAMIREZ WRIGHT HECTOR M MD May 15, 2019 14:04
[2019-05-15] MEDS ORDERED: AMLO5TAB10 PO (14:07)
[2019-05-15] MEDS ORDERED: ATOR10TA60 PO (14:07)
[2019-05-15 15:00] VITALS: BP 157/86
--- NOTE | 2019-05-15 18:41 | NUR ---
patient discharged this shift with new scripts called to pharmacy. Follow up appts made and given for cardiology appt and lexiscan.
[2019-05-15] MEDS ORDERED: ATORVASTATIN CALCIUM 10 MG TABLET. PO SCH (21:00)
[2019-05-16] MEDS ORDERED: amLODIPine BESYLATE 5 MG TABLET PO SCH (09:00)
== END 2019-05-15 17:00 | disposition home or self-care (01) | DRG 305 ==
LOC: ER 14:48 → ED HOLD 19:15 → 2 NORTH 19:57
PROVIDERS: ADMIT Internal Medicine; ATTEND Internal Medicine
DX: I16.0 Hypertensive urgency (principal); Z68.41 Body mass index [BMI] 40.0-44.9, adult; E66.01 Morbid (severe) obesity due to excess calories; E78.00 Pure hypercholesterolemia, unspecified; E78.5 Hyperlipidemia, unspecified; F17.210 Nicotine dependence, cigarettes, uncomplicated; G47.33 Obstructive sleep apnea (adult) (pediatric); I10 Essential (primary) hypertension; I45.10 Unspecified right bundle-branch block; Z82.3 Family history of stroke; Z85.46 Personal history of malignant neoplasm of prostate; Z85.51 Personal history of malignant neoplasm of bladder; Z91.19 Patient's noncompliance with other medical treatment and regimen; Z96.651 Presence of right artificial knee joint; Z98.1 Arthrodesis status; M10.9 Gout, unspecified; M19.90 Unspecified osteoarthritis, unspecified site; R07.89 Other chest pain; Z88.8 Allergy status to other drugs, medicaments and biological substances
CPT/HCPCS: 36415; 71046; 80053; 80061; 82553; 83735; 83880; 84443; 84484; 85025; 85610; 85730; 93005; 93306; J1940; J3490; G0378

== ENCOUNTER → 2019-07-01 | Outpatient (CLI) | payer OTHER, MEDICARE ==
[~2019-07-01] MED LIST changes: +ATOR10TA60 PO
[2019-07-01 10:39] LABS: BASO % 1 % (0-3); EOS # 0.1 x10^3/uL (0.0-0.7); EOS % 2 % (0-3); HEMATOCRIT 40.7 % (39.0-53.0); HEMOGLOBIN 13.5 g/dL (13.0-17.5); LYMPH # 1.6 x10^3/uL (1.0-4.8); LYMPH % 22 % (24-48); MEAN CORPUSCULAR HEMOGLOBIN 33 pg (25-35); MEAN CORPUSCULAR HGB CONC 33 g/dL (31-37); MEAN CORPUSCULAR VOLUME 98 fL (79-100); MONO # 0.6 x10^3/uL (0.0-1.1); MONO % 8 % (0-9); NEUT % 68 % (31-73); PLATELET COUNT 272 x10^3/uL (140-400); RED BLOOD COUNT 4.14 x10^6/uL (4.30-5.70); RED CELL DISTRIBUTION WIDTH 16.1 % (11.5-14.5); WHITE BLOOD COUNT 7.3 x10^3/uL (4.0-11.0)
[2019-07-01 11:04] LABS: ALBUMIN 3.8 g/dL (3.4-5.0); ALBUMIN/GLOBULIN RATIO 1.1 (1.0-1.7); CALCIUM 9.3 mg/dL (8.5-10.1); CREATININE 0.9 mg/dL (0.7-1.3); GFR 103.8; POTASSIUM 4.6 mmol/L (3.5-5.1); TOTAL BILIRUBIN 0.2 mg/dL (0.2-1.0); TOTAL PROTEIN 7.4 g/dL (6.4-8.2)
[2019-07-01 11:08] LABS: CHOLESTEROL/HDL RATIO 3.9
[2019-07-02 00:07] LABS: HEMOGLOBIN A1C 5.8 % (4.8-5.6)
== END | disposition home or self-care (01) ==
LOC: LAB 10:08
PROVIDERS: ATTEND Family Medicine
DX: R73.09 Other abnormal glucose (principal); E78.5 Hyperlipidemia, unspecified; I10 Essential (primary) hypertension
CPT/HCPCS: 36415; 80053; 80061; 83036; 85025

== ENCOUNTER → 2019-10-29 | Outpatient (CLI) | payer OTHER, MEDICARE ==
[~2019-10-29] MED LIST changes: -ERTA1VIA IJ; +ERTA1VIA16 IJ; +METF-658 PO; -METF500T11 PO; -WARF-78 PO; +WARF5TAB2 PO
[2019-10-29 13:10] LABS: CALCIUM 9.2 mg/dL (8.5-10.1); CREATININE 1.3 mg/dL (0.7-1.3); GFR 67.7; POTASSIUM 4.4 mmol/L (3.5-5.1); URIC ACID 5.2 mg/dL (3.5-7.2)
== END | disposition home or self-care (01) ==
LOC: LAB 12:36
PROVIDERS: ATTEND Family Medicine
DX: E78.5 Hyperlipidemia, unspecified (principal); M10.9 Gout, unspecified
CPT/HCPCS: 36415; 80048; 84550

== ENCOUNTER → 2019-12-19 | Outpatient (CLI) | payer OTHER, MEDICARE ==
[2019-12-19 10:00] LABS: BASO # 0.1 x10^3/uL (0.0-0.2); BASO % 1 % (0-3); EOS # 0.2 x10^3/uL (0.0-0.7); EOS % 2 % (0-3); HEMOGLOBIN 12.6 g/dL (13.0-17.5); LYMPH # 1.6 x10^3/uL (1.0-4.8); LYMPH % 21 % (24-48); MEAN CORPUSCULAR HEMOGLOBIN 34 pg (25-35); MEAN CORPUSCULAR HGB CONC 34 g/dL (31-37); MEAN CORPUSCULAR VOLUME 99 fL (79-100); MONO # 0.9 x10^3/uL (0.0-1.1); MONO % 11 % (0-9); NEUT % 65 % (31-73); PLATELET COUNT 225 x10^3/uL (140-400); RED BLOOD COUNT 3.73 x10^6/uL (4.30-5.70); RED CELL DISTRIBUTION WIDTH 15.2 % (11.5-14.5); WHITE BLOOD COUNT 7.7 x10^3/uL (4.0-11.0)
[2019-12-19 10:26] LABS: ALBUMIN 3.5 g/dL (3.4-5.0); CALCIUM 8.8 mg/dL (8.5-10.1); CREATININE 1.2 mg/dL (0.7-1.3); GFR 74.2; POTASSIUM 4.2 mmol/L (3.5-5.1); TOTAL BILIRUBIN 0.2 mg/dL (0.2-1.0); TOTAL PROTEIN 7.1 g/dL (6.4-8.2)
== END | disposition home or self-care (01) ==
LOC: ONCLAB 09:36
PROVIDERS: ATTEND Internal Medicine Hematology & Oncology
DX: Z12.5 Encounter for screening for malignant neoplasm of prostate (principal); C61 Malignant neoplasm of prostate
CPT/HCPCS: 36415; 80053; 85025; G0103

== ENCOUNTER 2020-03-26 10:54 | Inpatient (IN) | payer OTHER, MEDICARE ==
[~2020-03-26] VITALS: Ht 182.9 cm; Wt 146.4 kg
[~2020-03-26 10:54] MED LIST changes: +AMLO-186 PO; +AMLO-187 PO; -AMLO10TA8 PO; -AMLO5TAB10 PO
--- NOTE | 2020-03-26 12:07 | RAD ---
Examination: XR CHEST 1V History: Reason: increased SOA + COVID 2 weeks ago / Spl. Instructions: / History: Comparison/Correlation: 05/14/2019 Findings: Portable upright frontal view the chest was obtained. Heart size and pulmonary vessels are normal. No infiltrate or effusion. No pneumothorax. Bony structures are intact. Foreshortened appeara nce of the distal right clavicle. Correlate with surgical history. Impression: No active disease. Electronically signed by: Jose Antonio Rae MD (03/26/2020 12:05 PM) [id number]
[2020-03-26 12:13] LABS: BASO # 0.1 x10^3/uL (0.0-0.2); BASO % 1 % (0-3); EOS # 0.1 x10^3/uL (0.0-0.7); EOS % 1 % (0-3); HEMATOCRIT 35.6 % (39.0-53.0); HEMOGLOBIN 12.1 g/dL (13.0-17.5); LYMPH # 1.8 x10^3/uL (1.0-4.8); LYMPH % 17 % (24-48); MEAN CORPUSCULAR HEMOGLOBIN 33 pg (25-35); MEAN CORPUSCULAR HGB CONC 34 g/dL (31-37); MEAN CORPUSCULAR VOLUME 98 fL (79-100); MONO # 1.1 x10^3/uL (0.0-1.1); MONO % 11 % (0-9); NEUT % 70 % (31-73); PLATELET COUNT 257 x10^3/uL (140-400); RED BLOOD COUNT 3.65 x10^6/uL (4.30-5.70); RED CELL DISTRIBUTION WIDTH 14.2 % (11.5-14.5); WHITE BLOOD COUNT 10.1 x10^3/uL (4.0-11.0)
--- NOTE | 2020-03-26 12:23 | ED.ADGEN ---
Past Medical History Past Medical History: Cancer, High Cholesterol, Hypertension Additional Past Medical Histor: PROSTATE CA/CHEMO/RADIATION, PROSTATE REMOVED Past Surgical History: Other Additional Past Surgical Histo: R knee scope, lumbar spinal fusion, multiple arthroscopic knee,R SHOULDER Smoking Status: Current Every Day Smoker Alcohol Use: Occasionally Drug Use: None General Adult EDM: Chief Complaint: SHORTNESS OF BREATH HPI: HPI: Patient is a 64 year old morbidly obese AA male who presents to the emergency department with complaints of shortness of breath with activity that has increased over the last 2 to 3 days. Patient states that he tested positive for COVID-19 over 2 weeks ago, he quarantined at home as instructed and was feeling better but has noticed that with increased activity over the last few days that he becomes very short of breath. He continues to have intermittent headaches, loss of sense of taste, and an occasional dry cough. He denies any current fever, body aches, fatigue, nausea, vomiting, diarrhea, abdominal pain, or chest pain. Patient states that when he is up moving around he becomes very easily winded and begins to feel like his heart is racing. He denies any increased swelling in his lower extremities. Patient reports chronic lower leg swelling. He currently denies any pain. Review of Systems: Review of Systems: Complete ROS is negative unless otherwise noted in HPI. Current Medications: Current Medications Medications (Trade) Dose Ordered Sig/Dominic Start Time Stop Time Status Last Admin Dose Admin Heparin Sodium (Porcine) (Heparin Sodium) 1,750 unit PRN Q6HRS PRN 03/26/20 14:30 Heparin Sodium/ Dextrose 250 ml @ 0 mls/hr CONT PRN 03/26/20 14:30 03/26/20 14:45 20 MLS/HR Info (CONTRAST GIVEN -- Rx MONITORING) 1 each PRN DAILY PRN 03/26/20 14:00 03/28/20 13:59 Iohexol (Omnipaque 350 Mg/ml) 100 ml 1X ONCE 03/26/20 14:00 03/26/20 14:01 DC 03/26/20 14:12 100 ML Allergies: Allergies: Allergies Coded Allergies Type Severity Reaction Last Updated Verified morphine Adverse Reaction Intermediate HALLUCINATIONS 02/07/19 Yes Physical Exam: PE: See Above Constitutional: Well developed, well nourished, no acute distress, non-toxic appearance, morbidly obese. [] HENT: Normocephalic, atraumatic, bilateral external ears normal, nose normal. [] Eyes: PERRLA, EOMI, conjunctiva normal, no discharge. [] Neck: Normal range of motion, no stridor. [] Cardiovascular:Heart rate regular rhythm Lungs & Thorax: Respirations even and unlabored, no retractions, no respiratory distress Abdomen: soft, no tenderness Skin: Warm, dry, no erythema, no rash. [] Extremities: BLE: No cyanosis, ROM intact, 2+ edema. [] Neurologic: Alert and oriented X 3, no focal deficits noted. [] Psychologic: Affect normal, judgement normal, mood normal. [] Current Patient Data: Labs: Laboratory Tests Test 03/26/20 12:01 White Blood Count 10.1 x10^3/uL (4.0-11.0) Red Blood Count 3.65 x10^6/uL (4.30-5.70) L Hemoglobin 12.1 g/dL (13.0-17.5) L Hematocrit 35.6 % (39.0-53.0) L Mean Corpuscular Volume 98 fL (79-100) Mean Corpuscular Hemoglobin 33 pg (25-35) Mean Corpuscular Hemoglobin Concent 34 g/dL (31-37) Red Cell Distribution Width 14.2 % (11.5-14.5) Platelet Count 257 x10^3/uL (140-400) Neutrophils (%) (Auto) 70 % (31-73) Lymphocytes (%) (Auto) 17 % (24-48) L Monocytes (%) (Auto) 11 % (0-9) H Eosinophils (%) (Auto) 1 % (0-3) Basophils (%) (Auto) 1 % (0-3) Neutrophils # (Auto) 7.0 x10^3/uL (1.8-7.7) Lymphocytes # (Auto) 1.8 x10^3/uL (1.0-4.8) Monocytes # (Auto) 1.1 x10^3/uL (0.0-1.1) Eosinophils # (Auto) 0.1 x10^3/uL (0.0-0.7) Basophils # (Auto) 0.1 x10^3/uL (0.0-0.2) Prothrombin Time 12.8 SEC (11.7-14.0) Prothrombin Time INR 1.0 (0.8-1.1) Activated Partial Thromboplast Time 34 SEC (24-38) D-Dimer (Bruna) > 20.00 ug/mlFEU Sodium Level 141 mmol/L (136-145) Potassium Level 4.4 mmol/L (3.5-5.1) Chloride Level 105 mmol/L (98-107) Carbon Dioxide Level 24 mmol/L (21-32) Anion Gap 12 (6-14) Blood Urea Nitrogen 22 mg/dL (8-26) Creatinine 1.1 mg/dL (0.7-1.3) Estimated GFR (Cockcroft-Gault) 82.1 BUN/Creatinine Ratio 20 (6-20) Glucose Level 86 mg/dL (70-99) Calcium Level 9.7 mg/dL (8.5-10.1) Magnesium Level 1.9 mg/dL (1.8-2.4) Total Bilirubin 0.3 mg/dL (0.2-1.0) Aspartate Amino Transferase (AST) 29 U/L (15-37) Alanine Aminotransferase (ALT) 47 U/L (16-63) Alkaline Phosphatase 96 U/L (46-116) Creatine Kinase 266 U/L (39-308) Creatine Kinase MB (Mass) 3.3 ng/mL (0.0-3.6) Creatine Kinase MB Relative Index 1.2 % (0-4) Troponin I Quantitative < 0.017 ng/mL (0.000-0.055) YO-Tei-G-Type Natriuretic Peptide 95 pg/mL (0-124) Total Protein 7.8 g/dL (6.4-8.2) Albumin 3.6 g/dL (3.4-5.0) Albumin/Globulin Ratio 0.9 (1.0-1.7) L Laboratory Tests 03/26/20 12:01 Laboratory Tests 03/26/20 12:01 Vital Signs: Vital Signs Date Time Temp Pulse Resp B/P (MAP) Pulse Ox O2 Delivery O2 Flow Rate FiO2 03/26/20 11:30 98.1 83 22 148/78 (101) 96 Room Air 98.1 EKG: EK-sinus rhythm, right bundle branch block, rate 73, no STEMI, read by Dr. Richard [] Heart Score: Risk Factors: Risk Factors: DM, Current or recent (<one month) smoker, HTN, HLP, family history of CAD, obesity. Risk Scores: Score 0 - 3: 2.5% MACE over next 6 weeks - Discharge Home Score 4 - 6: 20.3% MACE over next 6 weeks - Admit for Clinical Observation Score 7 - 10: 72.7% MACE over next 6 weeks - Early Invasive Strategies Radiology/Procedures: Radiology/Procedures: PROCEDURE: CHEST AP ONLY Examination: XR CHEST 1V History: Reason: increased SOA + COVID 2 weeks ago / Spl. Instructions: / Hist ory: Comparison/Correlation: 05/14/2019 Findings: Portable upright frontal view the chest was obtained. Heart size and pulmonary vessels are normal. No infiltrate or effusion. No pneumothorax. Bony s tructures are intact. Foreshortened appearance of the distal right clavicle. Correlate with surgical history. Impression: No active disease.[] PROCEDURE: CT ANGIOGRAPHY CHEST Examination: CTA CHEST History: SOA with exertion, COVID + over 2 weeks ago Comparison/Correlation: 10/24/2016 CTA of the chest Findings: Axial images of the chest were obtained following IV contrast by a pulmonary artery mammography protocol. Sagittal and coronal reformatted images were provided. Maximum intensity projection images were provided. Saddlel embolus is noted. Extension of thromboembolic disease into right upper lobe, right middle lobe, right lower lobe, left upper lobe, lingular, and left lower lobe branches proximally is notable. Extension more distally within the right lower lobe pulmonary arterial branch is also seen. No infiltrates are identified. No pneumothorax. There is a 0.7 cm x 0.4 cm noncalcified nodule which is somewhat ill-defined at the right lower lobe posteriorly on axial image 106 of series 3. No enlarged thoracic lymph nodes. Partially visualized upper abdomen is unremarkable. No acute bony process. Visualized aorta is unremarkable. Impression: Saddle embolus with extensive bilateral PE. Small nodule at the posterior right lower lobe is present and new since the previous CT exam. It is below the limits of PET resolution. Interval follow-up chest CT in 6 months is recommended to assess stability. On 03/26/2020 at 2:46 PM, results were reported to the ordering nurse practitioner provider [place]. Course & Med Decision Making: Course & Med Decision Making Pertinent Labs and Imaging studies reviewed. (See chart for details) [id number] with Dr. Beltre who is the admitting physician, and care was assumed following discussion of patient. Will admit the patient for saddle embolism to the ICU we will consult pulmonology as requested. I advised Dr. Beltre that heparin has been ordered by Dr. Campbell for this patient. Patient's vital signs stable. Patient remains afebrile, appears nontoxic, respirations even and unlabored. Patient will be admitted to the ICU floor. Patient's case and plan of care also discussed with Dr. Fontanez 1432- I spoke with Dr. Reynoso and advised him of patient that is being admitte d and need for consult. [] Dragon Disclaimer: Dragon Disclaimer: This electronic medical record was generated, in whole or in part, using a voice recognition dictation system. Departure Departure Impression: Primary Impression: Acute saddle pulmonary embolism Additional Impression: Shortness of breath Disposition: 09 ADMITTED INPT THIS HOSP Admitting Physician: RAYMOND (Patt) Condition: STABLE Referrals: SEN JEFFRIES MD (PCP) Problem Qualifiers Primary Impression: Acute saddle pulmonary embolism Acute cor pulmonale presence: unspecified Qualified Codes: I26.92 - Saddle embolus of pulmonary artery without acute cor pulmonale MARIBETH MARSHALL ASSOCIATE PRINCIPAL Mar 26, 2020 12:23
[2020-03-26 12:27] LABS: CALCIUM 9.7 mg/dL (8.5-10.1); CREATININE 1.1 mg/dL (0.7-1.3); GFR 82.1; POTASSIUM 4.4 mmol/L (3.5-5.1)
[2020-03-26 12:31] LABS: ALBUMIN 3.6 g/dL (3.4-5.0); ALBUMIN/GLOBULIN RATIO 0.9 (1.0-1.7); MAGNESIUM 1.9 mg/dL (1.8-2.4); TOTAL BILIRUBIN 0.3 mg/dL (0.2-1.0); TOTAL PROTEIN 7.8 g/dL (6.4-8.2)
[2020-03-26] MEDS ORDERED: CONTRAST GIVEN. MC PRN (14:00)
[2020-03-26] MEDS ORDERED: IOHEXOL 350 MG/ML 100 ML VIAL. IV ONE (14:00)
[2020-03-26] MEDS ORDERED: HEPARIN for IV BOLUS 10,000 UNIT/10 ML VIAL. IV PRN ×2 (14:30)
[2020-03-26 14:37] LABS: PROTHROMBIN TIME PATIENT 12.8 SEC (11.7-14.0)
[2020-03-26] MEDS: HEPARIN 25,000UTS/250ML PREMIX 250 ML IV PRN (14:45)
--- NOTE | 2020-03-26 14:59 | RAD ---
Examination: CTA CHEST History: SOA with exertion, COVID + over 2 weeks ago Comparison/Correlation: 10/24/2016 CTA of the chest Findings: Axial images of the chest were obtained following IV contrast by a pulmonary artery mammogr aphy protocol. Sagittal and coronal reformatted images were provided. Maximum intensity projection im ages were provided. Saddlel embolus is noted. Extension of thromboembolic disease into right upper lobe, right middle lob e, right lower lobe, left upper lobe, lingular, and left lower lobe branches proximally is notable. E xtension more distally within the right lower lobe pulmonary arterial branch is also seen. No infiltr ates are identified. No pneumothorax. There is a 0.7 cm x 0.4 cm noncalcified nodule which is somewhat ill-defined at the right lower lobe posteriorly on axial image 106 of series 3. No enlarged thoracic lymph nodes. Partially visualized up per abdomen is unremarkable. No acute bony process. Visualized aorta is unremarkable. Impression: Saddle embolus with extensive bilateral PE. Small nodule at the posterior right lower lobe is present and new since the previous CT exam. It is b elow the limits of PET resolution. Interval follow-up chest CT in 6 months is recommended to assess s tability. On 03/26/2020 at 2:46 PM, results were reported to the ordering nurse practitioner provider [place]. PQRS Compliance Statement: One or more of the following individualized dose reduction techniques were utilized for this examinat ion: 1. Automated exposure control 2. Adjustment of the mA and/or kV according to patient size 3. Use of iterative reconstruction technique Electronically signed by: Jose Antonio Rae MD (03/26/2020 2:57 PM) [id number]
--- NOTE | 2020-03-26 15:17 | EKG ---
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
--- NOTE | 2020-03-26 17:50 | PDOC ---
PULMONARY PROGRESS NOTES DATE: 03/26/20 TIME: 17:49 Vitals Vital Signs Date Time Temp Pulse Resp B/P (MAP) Pulse Ox O2 Delivery O2 Flow Rate FiO2 03/26/20 11:30 98.1 83 22 148/78 (101) 96 Room Air 98.1 Lungs: Clear Labs Laboratory Tests Test 03/26/20 12:01 White Blood Count 10.1 x10^3/uL (4.0-11.0) Red Blood Count 3.65 x10^6/uL (4.30-5.70) Hemoglobin 12.1 g/dL (13.0-17.5) Hematocrit 35.6 % (39.0-53.0) Mean Corpuscular Volume 98 fL (79-100) Mean Corpuscular Hemoglobin 33 pg (25-35) Mean Corpuscular Hemoglobin Concent 34 g/dL (31-37) Red Cell Distribution Width 14.2 % (11.5-14.5) Platelet Count 257 x10^3/uL (140-400) Neutrophils (%) (Auto) 70 % (31-73) Lymphocytes (%) (Auto) 17 % (24-48) Monocytes (%) (Auto) 11 % (0-9) Eosinophils (%) (Auto) 1 % (0-3) Basophils (%) (Auto) 1 % (0-3) Neutrophils # (Auto) 7.0 x10^3/uL (1.8-7.7) Lymphocytes # (Auto) 1.8 x10^3/uL (1.0-4.8) Monocytes # (Auto) 1.1 x10^3/uL (0.0-1.1) Eosinophils # (Auto) 0.1 x10^3/uL (0.0-0.7) Basophils # (Auto) 0.1 x10^3/uL (0.0-0.2) Prothrombin Time 12.8 SEC (11.7-14.0) Prothromb Time International Ratio 1.0 (0.8-1.1) Activated Partial Thromboplast Time 34 SEC (24-38) D-Dimer (Bruna) > 20.00 ug/mlFEU Sodium Level 141 mmol/L (136-145) Potassium Level 4.4 mmol/L (3.5-5.1) Chloride Level 105 mmol/L (98-107) Carbon Dioxide Level 24 mmol/L (21-32) Anion Gap 12 (6-14) Blood Urea Nitrogen 22 mg/dL (8-26) Creatinine 1.1 mg/dL (0.7-1.3) Estimated GFR (Cockcroft-Gault) 82.1 BUN/Creatinine Ratio 20 (6-20) Glucose Level 86 mg/dL (70-99) Calcium Level 9.7 mg/dL (8.5-10.1) Magnesium Level 1.9 mg/dL (1.8-2.4) Total Bilirubin 0.3 mg/dL (0.2-1.0) Aspartate Amino Transf (AST/SGOT) 29 U/L (15-37) Alanine Aminotransferase (ALT/SGPT) 47 U/L (16-63) Alkaline Phosphatase 96 U/L (46-116) Creatine Kinase 266 U/L (39-308) Creatine Kinase MB (Mass) 3.3 ng/mL (0.0-3.6) Creatine Kinase MB Relative Index 1.2 % (0-4) Troponin I Quantitative < 0.017 ng/mL (0.000-0.055) XO-Yvh-Q-Type Natriuretic Peptide 95 pg/mL (0-124) Total Protein 7.8 g/dL (6.4-8.2) Albumin 3.6 g/dL (3.4-5.0) Albumin/Globulin Ratio 0.9 (1.0-1.7) Laboratory Tests Test 03/26/20 12:01 White Blood Count 10.1 x10^3/uL (4.0-11.0) Red Blood Count 3.65 x10^6/uL (4.30-5.70) Hemoglobin 12.1 g/dL (13.0-17.5) Hematocrit 35.6 % (39.0-53.0) Mean Corpuscular Volume 98 fL (79-100) Mean Corpuscular Hemoglobin 33 pg (25-35) Mean Corpuscular Hemoglobin Concent 34 g/dL (31-37) Red Cell Distribution Width 14.2 % (11.5-14.5) Platelet Count 257 x10^3/uL (140-400) Neutrophils (%) (Auto) 70 % (31-73) Lymphocytes (%) (Auto) 17 % (24-48) Monocytes (%) (Auto) 11 % (0-9) Eosinophils (%) (Auto) 1 % (0-3) Basophils (%) (Auto) 1 % (0-3) Neutrophils # (Auto) 7.0 x10^3/uL (1.8-7.7) Lymphocytes # (Auto) 1.8 x10^3/uL (1.0-4.8) Monocytes # (Auto) 1.1 x10^3/uL (0.0-1.1) Eosinophils # (Auto) 0.1 x10^3/uL (0.0-0.7) Basophils # (Auto) 0.1 x10^3/uL (0.0-0.2) Prothrombin Time 12.8 SEC (11.7-14.0) Prothromb Time International Ratio 1.0 (0.8-1.1) Activated Partial Thromboplast Time 34 SEC (24-38) D-Dimer (Bruna) > 20.00 ug/mlFEU Sodium Level 141 mmol/L (136-145) Potassium Level 4.4 mmol/L (3.5-5.1) Chloride Level 105 mmol/L (98-107) Carbon Dioxide Level 24 mmol/L (21-32) Anion Gap 12 (6-14) Blood Urea Nitrogen 22 mg/dL (8-26) Creatinine 1.1 mg/dL (0.7-1.3) Estimated GFR (Cockcroft-Gault) 82.1 BUN/Creatinine Ratio 20 (6-20) Glucose Level 86 mg/dL (70-99) Calcium Level 9.7 mg/dL (8.5-10.1) Magnesium Level 1.9 mg/dL (1.8-2.4) Total Bilirubin 0.3 mg/dL (0.2-1.0) Aspartate Amino Transf (AST/SGOT) 29 U/L (15-37) Alanine Aminotransferase (ALT/SGPT) 47 U/L (16-63) Alkaline Phosphatase 96 U/L (46-116) Creatine Kinase 266 U/L (39-308) Creatine Kinase MB (Mass) 3.3 ng/mL (0.0-3.6) Creatine Kinase MB Relative Index 1.2 % (0-4) Troponin I Quantitative < 0.017 ng/mL (0.000-0.055) QH-Vgw-Z-Type Natriuretic Peptide 95 pg/mL (0-124) Total Protein 7.8 g/dL (6.4-8.2) Albumin 3.6 g/dL (3.4-5.0) Albumin/Globulin Ratio 0.9 (1.0-1.7) Medications Active Scripts Medications Dose Route/Sig Max Daily Dose Days Date Category Amlodipine Besylate 5 Mg Tablet 10 Mg PO DAILY 05/15/19 Rx Atorvastatin Calcium 10 Mg Tablet 10 Mg PO QHS 05/15/19 Rx Atenolol 50 Mg Tablet 50 Mg PO DAILY 03/05/19 Reported Ferrous Sulfate 325 Mg Tablet 325 Mg PO DAILY 02/07/19 Reported Hydrochlorothiazide Capsule (Hydrochlorothiazide) 12.5 Mg Capsule 12.5 Mg PO DAILY 02/07/19 Reported Losartan Potassium 50 Mg Tablet 50 Mg PO DAILY 02/07/19 Reported Allopurinol 300 Mg Tablet 300 Mg PO DAILY 01/10/16 Reported Impression . Full note dictated, discussed with Dr. Beltre, Acute PE, suspect secondary to recent COVID-19 Not a candidate for TPA, continue heparin, no need for ICU admission. DANAE FLORES MD Mar 26, 2020 17:50
--- NOTE | 2020-03-26 18:18 | HP ---
ADMIT DATE: 03/26/2020 CHIEF COMPLAINT: Shortness of breath. HISTORY OF PRESENT ILLNESS: The patient is a pleasant 64-year-old male who had COVID-19 about 2 weeks ago. He states he has been self-quarantined at home and was doing better, but then started noticing shortness of breath. We did a CAT scan here in the ER. Now, he has got pulmonary embolism. We are going to start the patient on anticoagulation and we are consulting Dr. Reynoso. PAST MEDICAL HISTORY: Recent COVID-19 two weeks ago, prostate cancer, radiation therapy, prostatectomy, hyperlipidemia, hypertension, right knee surgery, lumbar fusion, right shoulder surgery, tobacco abuse. ALLERGIES: MORPHINE. FAMILY HISTORY: Diabetes. SOCIAL HISTORY: He smokes. No drink or drugs. MEDICATIONS: Reviewed, please refer to the MRAD. REVIEW OF SYSTEMS: GENERAL: No history of weight change, weakness or fevers. SKIN: No bruising, hair changes or rashes. EYES: No blurred, double or loss of vision. NOSE AND THROAT: No history of nosebleeds, hoarseness or sore throat. HEART: No history of palpitations, chest pain or shortness of breath on exertion. LUNGS: Denies cough, hemoptysis, wheezing. He complains of shortness of breath. GASTROINTESTINAL: Denies changes in appetite, nausea, vomiting, diarrhea or constipation. GENITOURINARY: No history of frequency, urgency, hesitancy or nocturia. NEUROLOGIC: Denies history of numbness, tingling, tremor or weakness. PSYCHIATRIC: No history of panic, anxiety or depression. ENDOCRINE: No history of heat or cold intolerance, polyuria or polydipsia. EXTREMITIES: Denies muscle weakness, joint pain, pain on walking or stiffness. PHYSICAL EXAMINATION: VITALS: Within normal limits and are stable. GENERAL: No apparent distress. Alert and oriented. HEENT: Normal cephalic atraumatic, external auditory canals are patent. EYES: Extraocular muscles are intact, pupils are equally round and reactive to light and accommodation. MUSCULOSKELETAL: Well developed, well nourished, good range of motion. ENDOCRINE: No thyromegaly was palpated. LYMPHATICS: No cervical chain or axillary nodes were noted. HEMATOPOIETIC: No bruising. NECK: Supple, no JVD, no thyromegaly was noted. LUNGS: Clear to auscultation in all lung bender without rhonchi or wheezing. HEART: RRR, S1, S2 present. Peripheral pulses intact, no obvious murmurs were noted. ABDOMEN: Soft, nontender. Positive bowel sounds no organomegaly, normal bowel sounds. EXTREMITIES: Without any cyanosis, clubbing, or edema. Pedal pulses intact, Homans sign is negative. NEUROLOGIC: Normal speech, normal tone. A & O x 3, moves all extremities, no obvious focal deficits. PSYCHIATRIC: Normal affect, normal mood. Stable. SKIN: No ulcerations or rashes, good skin turgor, no jaundice. VASCULAR: Good capillary refill, neurovascular bundle appears to be intact. LABORATORY DATA: White count is 10. CT of the chest shows saddle pulmonary emboli. ASSESSMENT AND PLAN: Recent COVID-19 with a new saddle embolism. The patient has been admitted. We will consult Dr. Reynoso. Start anticoagulation, home medications, trend laboratories, re-swab him for COVID-19. Hope to change to p.o. anticoagulation soon. PROGNOSIS: Long-term guarded. SHARLENE GARCIA DO DR: MANA/yuly JOB#: [id number] / [id number]
--- NOTE | 2020-03-26 19:47 | CONS ---
DATE OF CONSULTATION: 03/26/2020 ATTENDING PHYSICIAN: Dr. Elizabeth Beltre. REASON FOR CONSULTATION: The patient is seen in pulmonary consultation at the request of Dr. Beltre for abnormal CT chest revealing saddle emboli. HISTORY OF PRESENT ILLNESS: The patient is a 64-year-old that was diagnosed with Sars-Cov-2/COVID-19 approximately a week or two ago. He quarantine at home. He noticed approximately a week ago he was walking into a store and had acute onset of shortness of breath with near syncopal episode, did not think much about it, he thought it was related to his COVID. Over the last week or so, he has had continued shortness of breath, not improving. He was concerned. He called his PCP, he was referred to the Emergency Department. In the Emergency Department, the patient underwent a CT angiogram. I personally reviewed the CT revealing a saddle emboli. The patient is currently hemodynamically stable. He is not requiring oxygen. He feels better. He has had intermittent chest discomfort with deep inspiration. No lower extremity edema or pain. He continues to have intermittent headaches, loss of sense of taste, and occasional dry cough. He quit tobacco approximately a week ago. PAST MEDICAL HISTORY: Hyperlipidemia, hypertension, and prostate cancer status post chemoradiation, he has also had his prostatectomy. He has underlying COPD, unknown FEV1. PAST SURGICAL HISTORY: Status post prostatectomy, right knee arthroscopic surgery, and spinal fusion of the lumbar area. SOCIAL HISTORY: He quit smoking a week ago. Occasional use of alcohol. REVIEW OF SYSTEMS: As indicated above, otherwise, a 10-point system was reviewed and negative. tested positive, she works here at [employer] [facility] [employer]. ALLERGIES: MORPHINE. MEDICATIONS: List was reviewed. PHYSICAL EXAMINATION: VITAL SIGNS: Stable. O2 saturation was greater than 92%, currently on room air. HEENT: Eyes: The sclerae were nonicteric. NECK: Jugular venous distention could not be assessed secondary to body habitus. CHEST: Full expansion. LUNGS: Adequate flow with no wheezes. CARDIOVASCULAR: Regular rate and rhythm with S1, S2, no S3. ABDOMEN: Obese. EXTREMITIES: No clubbing, cyanosis. Minimal edema. LABORATORY DATA: D-dimer was greater than 20. White count was normal. Hemoglobin and hematocrit noted. He had a lymphopenia. Electrolytes were noted. BUN and creatinine were normal. CT angiogram as indicated above. IMPRESSION: 1. Acute pulmonary embolism, suspect secondary to recent COVID-19. 2. COVID-19, the patient quarantine at home 2 weeks ago. 3. Hyperlipidemia. 4. Hypertension. 5. History of prostate cancer, status post chemoradiation and prostatectomy. PLAN: 1. We will continue IV heparin. Possibly home on Eliquis or warfarin. 2. The patient is hemodynamically stable, no need for TPA. 3. The patient's oxygen level is currently adequate. We will continue to monitor. 4. Outpatient polysomnogram. 5. Outpatient full pulmonary function testing. 6. Echocardiogram. I do appreciate the privilege in sharing in this patient's care. DANAE FLORES MD DR: MARIO/yuly JOB#: [id number] / [id number]
[2020-03-26 20:30] VITALS: BP 106/54
--- NOTE | 2020-03-26 21:00 | NUR ---
Admit from ED via [facility] to [facility] room 204. Transferred self from [place] to bed with standby assist. A/O x 4 on arrival. Pleasant. Dx Saddle PE. Patient explains he was Dx with COVID 2 weeks ago and thought fatigue and SOA was due to that. Rapid Covid test preformed in ED and results pending. Discussed isolation with nursing banking supervisor who in turn spoke to Dr Reynoso. Dr Reynoso does not believe patient is still contagious at this time. Orientated patient to unit and call light. Reviewed POC to include Heparin Drip and therapeutic range and possible going home on oral anticoagulation. Verbalized understanding. Patient has cell phone at bedside and has updated family on his status. Resting in bed watching TV with call light at hand.
[2020-03-26] MEDS ORDERED: HYDR-2868 PO (21:28)
[2020-03-26] MEDS ORDERED: ACETAMINOPHEN 325 MG TABLET. PO PRN (22:15)
[2020-03-26 23:20] VITALS: BP 123/60
[2020-03-27] MEDS: HEPARIN 25,000UTS/250ML PREMIX 250 ML IV PRN (01:27)
[2020-03-27 03:35] VITALS: BP 133/73
[2020-03-27 07:00] VITALS: BP 131/70
[2020-03-27] MEDS ORDERED: TRIA50CA PO (07:23)
[2020-03-27] MEDS ORDERED: HYDR-2868 PO (07:25)
--- NOTE | 2020-03-27 10:21 | PDOC ---
PULMONARY PROGRESS NOTES DATE: 03/27/20 TIME: 10:15 Subjective Patient is resting more comfortably on room air Denies any shortness of breath or cough No overnight concerns from nursing Vitals Vital Signs Date Time Temp Pulse Resp B/P (MAP) Pulse Ox O2 Delivery O2 Flow Rate FiO2 03/27/20 07:00 98.0 76 21 131/70 (90) 95 Room Air 98.0 ROS: No Nausea, No Chest Pain, No Abdominal Pain, No Increase Cough General: Alert Lungs: Clear Cardiovascular: S1, S2 Abdomen: Soft, Non-tender Neuro Exam: Alert, Oriented Extremities: No Edema Skin: Warm, Dry Labs Laboratory Tests Test 03/26/20 12:01 03/26/20 20:06 03/26/20 22:30 03/27/20 04:45 White Blood Count 10.1 x10^3/uL (4.0-11.0) Red Blood Count 3.65 x10^6/uL (4.30-5.70) Hemoglobin 12.1 g/dL (13.0-17.5) Hematocrit 35.6 % (39.0-53.0) Mean Corpuscular Volume 98 fL (79-100) Mean Corpuscular Hemoglobin 33 pg (25-35) Mean Corpuscular Hemoglobin Concent 34 g/dL (31-37) Red Cell Distribution Width 14.2 % (11.5-14.5) Platelet Count 257 x10^3/uL (140-400) Neutrophils (%) (Auto) 70 % (31-73) Lymphocytes (%) (Auto) 17 % (24-48) Monocytes (%) (Auto) 11 % (0-9) Eosinophils (%) (Auto) 1 % (0-3) Basophils (%) (Auto) 1 % (0-3) Neutrophils # (Auto) 7.0 x10^3/uL (1.8-7.7) Lymphocytes # (Auto) 1.8 x10^3/uL (1.0-4.8) Monocytes # (Auto) 1.1 x10^3/uL (0.0-1.1) Eosinophils # (Auto) 0.1 x10^3/uL (0.0-0.7) Basophils # (Auto) 0.1 x10^3/uL (0.0-0.2) Prothrombin Time 12.8 SEC (11.7-14.0) Prothromb Time International Ratio 1.0 (0.8-1.1) Activated Partial Thromboplast Time 34 SEC (24-38) D-Dimer (Bruna) > 20.00 ug/mlFEU Sodium Level 141 mmol/L (136-145) Potassium Level 4.4 mmol/L (3.5-5.1) Chloride Level 105 mmol/L (98-107) Carbon Dioxide Level 24 mmol/L (21-32) Anion Gap 12 (6-14) Blood Urea Nitrogen 22 mg/dL (8-26) Creatinine 1.1 mg/dL (0.7-1.3) Estimated GFR (Cockcroft-Gault) 82.1 BUN/Creatinine Ratio 20 (6-20) Glucose Level 86 mg/dL (70-99) Calcium Level 9.7 mg/dL (8.5-10.1) Magnesium Level 1.9 mg/dL (1.8-2.4) Total Bilirubin 0.3 mg/dL (0.2-1.0) Aspartate Amino Transf (AST/SGOT) 29 U/L (15-37) Alanine Aminotransferase (ALT/SGPT) 47 U/L (16-63) Alkaline Phosphatase 96 U/L (46-116) Creatine Kinase 266 U/L (39-308) Creatine Kinase MB (Mass) 3.3 ng/mL (0.0-3.6) Creatine Kinase MB Relative Index 1.2 % (0-4) Troponin I Quantitative < 0.017 ng/mL (0.000-0.055) JV-Dew-K-Type Natriuretic Peptide 95 pg/mL (0-124) Total Protein 7.8 g/dL (6.4-8.2) Albumin 3.6 g/dL (3.4-5.0) Albumin/Globulin Ratio 0.9 (1.0-1.7) SARS-CoV-2 Antigen (Rapid) Negative (NEGATIVE) Heparin Anti-Xa Act, Unfractionated 0.47 IU/mL (0.30-0.70) 0.58 IU/mL (0.30-0.70) Laboratory Tests Test 03/26/20 12:01 03/26/20 20:06 03/26/20 22:30 12/19/20 04:45 White Blood Count 10.1 x10^3/uL (4.0-11.0) Red Blood Count 3.65 x10^6/uL (4.30-5.70) Hemoglobin 12.1 g/dL (13.0-17.5) Hematocrit 35.6 % (39.0-53.0) Mean Corpuscular Volume 98 fL (79-100) Mean Corpuscular Hemoglobin 33 pg (25-35) Mean Corpuscular Hemoglobin Concent 34 g/dL (31-37) Red Cell Distribution Width 14.2 % (11.5-14.5) Platelet Count 257 x10^3/uL (140-400) Neutrophils (%) (Auto) 70 % (31-73) Lymphocytes (%) (Auto) 17 % (24-48) Monocytes (%) (Auto) 11 % (0-9) Eosinophils (%) (Auto) 1 % (0-3) Basophils (%) (Auto) 1 % (0-3) Neutrophils # (Auto) 7.0 x10^3/uL (1.8-7.7) Lymphocytes # (Auto) 1.8 x10^3/uL (1.0-4.8) Monocytes # (Auto) 1.1 x10^3/uL (0.0-1.1) Eosinophils # (Auto) 0.1 x10^3/uL (0.0-0.7) Basophils # (Auto) 0.1 x10^3/uL (0.0-0.2) Prothrombin Time 12.8 SEC (11.7-14.0) Prothromb Time International Ratio 1.0 (0.8-1.1) Activated Partial Thromboplast Time 34 SEC (24-38) D-Dimer (Bruna) > 20.00 ug/mlFEU Sodium Level 141 mmol/L (136-145) Potassium Level 4.4 mmol/L (3.5-5.1) Chloride Level 105 mmol/L (98-107) Carbon Dioxide Level 24 mmol/L (21-32) Anion Gap 12 (6-14) Blood Urea Nitrogen 22 mg/dL (8-26) Creatinine 1.1 mg/dL (0.7-1.3) Estimated GFR (Cockcroft-Gault) 82.1 BUN/Creatinine Ratio 20 (6-20) Glucose Level 86 mg/dL (70-99) Calcium Level 9.7 mg/dL (8.5-10.1) Magnesium Level 1.9 mg/dL (1.8-2.4) Total Bilirubin 0.3 mg/dL (0.2-1.0) Aspartate Amino Transf (AST/SGOT) 29 U/L (15-37) Alanine Aminotransferase (ALT/SGPT) 47 U/L (16-63) Alkaline Phosphatase 96 U/L (46-116) Creatine Kinase 266 U/L (39-308) Creatine Kinase MB (Mass) 3.3 ng/mL (0.0-3.6) Creatine Kinase MB Relative Index 1.2 % (0-4) Troponin I Quantitative < 0.017 ng/mL (0.000-0.055) NN-Dcv-A-Type Natriuretic Peptide 95 pg/mL (0-124) Total Protein 7.8 g/dL (6.4-8.2) Albumin 3.6 g/dL (3.4-5.0) Albumin/Globulin Ratio 0.9 (1.0-1.7) SARS-CoV-2 Antigen (Rapid) Negative (NEGATIVE) Heparin Anti-Xa Act, Unfractionated 0.47 IU/mL (0.30-0.70) 0.58 IU/mL (0.30-0.70) Medications Active Scripts Medications Dose Route/Sig Max Daily Dose Days Date Category Amlodipine Besylate 5 Mg Tablet 10 Mg PO DAILY 30 05/15/19 Rx Atorvastatin Calcium 10 Mg Tablet 10 Mg PO QHS 30 05/15/19 Rx Atenolol 50 Mg Tablet 50 Mg PO DAILY 03/05/19 Reported Ferrous Sulfate 325 Mg Tablet 325 Mg PO DAILY 02/07/19 Reported Hydrochlorothiazide Capsule (Hydrochlorothiazide) 12.5 Mg Capsule 12.5 Mg PO DAILY 02/07/19 Reported Losartan Potassium 50 Mg Tablet 50 Mg PO DAILY 02/07/19 Reported Allopurinol 300 Mg Tablet 300 Mg PO DAILY 01/10/16 Reported Comments CTA chest Impression: Saddle embolus with extensive bilateral PE. Small nodule at the posterior right lower lobe is present and new since the previous CT exam. It is below the limits of PET resolution. Interval follow-up chest CT in 6 months is recommended to assess stability. On 03/26/2020 at 2:46 PM, results were reported to the ordering nurse practitioner provider [place]. Impression . IMPRESSION: 1. Acute pulmonary embolism, suspect secondary to recent COVID-19. 2. COVID-19, the patient quarantine at home 2 weeks ago. 3. Hyperlipidemia. 4. Hypertension. 5. History of prostate cancer, status post chemoradiation and prostatectomy. Plan . PLAN: Patient is stable from a pulmonary standpoint, remains on room air DC heparin drip today, transition to p.o. Eliquis Patient will need at least 6 months of anticoagulation Outpatient polysomnogram Outpatient pulmonary function testing Weight echocardiogram results DVT/GI prophylaxis Disposition: Patient can discharge in the next 24 to 48 hours if tolerates p.o. anticoagulation DANAE FLORES MD Mar 27, 2020 10:20
[2020-03-27 10:45] VITALS: BP 138/66
--- NOTE | 2020-03-27 10:50 | DISCH ---
DISCHARGE INSTRUCTIONS Condition on Discharge Condition on Discharge: Stable (You will need to continue Eliquis for at least 6 months) Activity After Discharge Activity Instructions for Disc: Activity as tolerated, Progressive ambulation Bathing Instructions: Shower-keep dressing dry Lifting Instructions after Dis: No heavy lifting Exercise Instruction after Dis: Exercise per therapy, Progress as tolerated Driving Instructions after Dis: Do not drive Weight Bearing Status after Di: No restrictions Diet after Discharge Diet after Discharge: Cardiac, Regular Diet Texture: Regular Swallowing Supervision: None needed Wound Incision Care Wound/Incision Care: Ice to area for comfort Wound Care Equipment: Dressings Checks after Discharge Checks after discharge: Check your Temp as needed Contacting the DR. after DC Call your doctor for: Concerns you may have Follow-Up Follow up with: PCP within 2 weeks of discharge Follow Up With: Pulmonology within 2 to 4 weeks regarding your pulmonary embolism Treatment/Equipment after DC Adaptive Equipment Issued: Vic wheelDARRYL Martinez MD Mar 27, 2020 10:50
[2020-03-27] MEDS ORDERED: APIXABAN 5 MG TABLET. PO SCH (11:00)
[2020-03-27 14:46] VITALS: BP_SYST 120; BP_SYST 163; BP_DIAS 46; BP_DIAS 72
[2020-03-27] MEDS ORDERED: APIX5TAB PO (16:11)
--- NOTE | 2020-03-27 16:39 | NUR ---
Discharge Note: MIO CAMPOVERDE Discharge instructions and discharge home medications reviewed with Patient and a copy given. All questions have been answered and understanding verbalized. The following instructions and handouts were given: Eliquis information, Eliquis prescriptions, Shortness of air, pulmonary embolism. Patient discharged to home with self care via private vehicle. *Patient's discharge information went over with patient prior to discharge, patient left all information in room upon discharge. Will leave packet of information at desk with night charge nurse in case patient returns for paperwork.
--- NOTE | 2020-03-29 08:44 | NUR ---
IP: Informed pt of positive COVID test. Pt states was positive March 09. Not quarantine required due to >10 days and improvement of symptoms.
--- NOTE | 2020-03-29 09:12 | PDOC3 ---
[facility]-Discharge Summary Date of Admission: Date of Admission: Mar 26, 2020 Date of Discharge: Date of Discharge: Mar 27, 2020 Discharge Diagnosis: Discharge Diagnosis: Acute pulmonary embolism, suspect secondary to recent COVID-19. COVID-19, the patient quarantine at home 2 weeks ago. Hyperlipidemia. Hypertension. History of prostate cancer, status post chemoradiation and prostatectomy. Hospital Course: Hospital Course: 64-year-old that was diagnosed with Sars-Cov-2/COVID-19 approximately a week or two ago. He quarantine at home. He noticed approximately a week ago he was walking into a store and had acute onset of shortness of breath with near syncopal episode, did not think much about it, he thought it was related to his COVID. Over the last week or so, he has had continued shortness of breath, not improving. He was concerned. He called his PCP, he was referred to the Emergency Department. Patient was transitioned from Heparin drip to Eliquis. He maintained his O2 saturation during his hospital stay and was clinically stable without any dyspnea. Rest of his hospital course was uneventful. Disposition: Disposition/Orders: D/C to Home Activity: Activity: Resume previous activity Diet: Diet: Regular Medications: Home Meds Reported Medications Apixaban (ELIQUIS) 5 Mg Tablet, 5 MG PO BID for P.E., TAB 03/27/20 Apixaban (ELIQUIS) 5 Mg Tablet, 10 MG PO BID for P.E. for 7 Days, #28 TAB 03/27/20 Hydralazine Hcl (HYDRALAZINE HCL) 25 Mg Tablet, 1 TAB PO BID for high blood pressure, #180 TAB 3 Refills 03/27/20 Triamterene (DYRENIUM) 50 Mg Capsule, 50 MG PO DAILY for high blood pressure, CAP 03/27/20 Atenolol (ATENOLOL) 50 Mg Tablet, 50 MG PO DAILY for htn 03/05/19 Hydrochlorothiazide (HYDROCHLOROTHIAZIDE CAPSULE ) 12.5 Mg Capsule, 12.5 MG PO DAILY for DIURETIC 02/07/19 Losartan Potassium (LOSARTAN POTASSIUM) 50 Mg Tablet, 50 MG PO DAILY for HYPERTENSION, TAB 02/07/19 Discontinued Reported Medications Ferrous Sulfate (FERROUS SULFATE) 325 Mg Tablet, 325 MG PO DAILY for anemia 02/07/19 Scheduled Apixaban (Eliquis), 10 MG PO BID, (Reported) Apixaban (Eliquis), 5 MG PO BID, (Reported) Atenolol (Atenolol), 50 MG PO DAILY, (Reported) Hydralazine Hcl (Hydralazine Hcl), 1 TAB PO BID, (Reported) Hydrochlorothiazide (Hydrochlorothiazide Capsule ), 12.5 MG PO DAILY, (Reported) Losartan Potassium (Losartan Potassium), 50 MG PO DAILY, (Reported) Triamterene (Dyrenium), 50 MG PO DAILY, (Reported) Discontinued Medications Ferrous Sulfate (Ferrous Sulfate), 325 MG PO DAILY, (Reported) Total Time: Total Time: Total time spent was 40 minutes in preparing scripts, discharge planning with SW and RN, and preparing this discharge summary. Patient seen and examined on day of discharge. Justicifation of Admission Dx: Justifications for Admission: Justification of Admission Dx: Yes Respiratory Failure: Severe Resp Distress DARRYL VILLANUEVA MD Mar 29, 2020 09:12
[2020-04-03] MEDS ORDERED: APIXABAN 5 MG TABLET. PO SCH (09:00)
== END 2020-03-27 16:28 | disposition home or self-care (01) | DRG 176 ==
LOC: ER 10:54 → ED HOLD 14:21 → 2 NORTH 20:15
PROVIDERS: ADMIT Internal Medicine; ATTEND Internal Medicine
DX: I26.92 Saddle embolus of pulmonary artery without acute cor pulmonale (principal); Z68.41 Body mass index [BMI] 40.0-44.9, adult; I10 Essential (primary) hypertension; E78.00 Pure hypercholesterolemia, unspecified; F17.200 Nicotine dependence, unspecified, uncomplicated; J44.9 Chronic obstructive pulmonary disease, unspecified; E78.5 Hyperlipidemia, unspecified; E66.01 Morbid (severe) obesity due to excess calories; B94.8 Sequelae of other specified infectious and parasitic diseases; Z85.46 Personal history of malignant neoplasm of prostate; Z92.3 Personal history of irradiation; Z92.21 Personal history of antineoplastic chemotherapy; Z90.79 Acquired absence of other genital organ(s); Z98.1 Arthrodesis status; Z88.5 Allergy status to narcotic agent; Z83.3 Family history of diabetes mellitus
CPT/HCPCS: 36415; 71045; 71275; 80053; 82553; 83735; 83880; 84484; 85025; 85379; 85520; 85610; 85730; 87426; 93005; 96365; 99285; J1644; Q9967; U0003; G0378

== ENCOUNTER → 2020-06-15 | Outpatient (CLI) | payer OTHER, MEDICARE ==
[2020-03-27 14:46] VITALS: BP 120/72
[~2020-06-15] MED LIST changes: +APIX5TAB PO; +HYDR-2868 PO; +TRIA50CA PO
--- NOTE | 2020-06-15 13:31 | KCIC ---
EXAM: Cervical spine, 4 views. HISTORY: Radiculopathy. COMPARISON: None. FINDINGS: 4 views of the cervical spine are obtained. There is degenerative endplate remodeling at al l levels. There is disc space narrowing at C4-C5. There is multilevel facet and uncovertebral arthrop athy. No fracture is seen. IMPRESSION: Multilevel degenerative change, primarily at C4-C5. No acute osseous finding. Electronically signed by: Leatha Suarez MD (06/15/2020 1:28 PM) [id number]
== END ==
LOC: KCIC 12:31
PROVIDERS: ATTEND Family Medicine
DX: M47.22 Other spondylosis with radiculopathy, cervical region (principal)
CPT/HCPCS: 72040

== ENCOUNTER → 2020-06-24 | Outpatient (CLI) | payer OTHER, MEDICARE ==
[2020-03-27 14:46] VITALS: BP 120/72
[2020-06-24 09:14] LABS: BASO # 0.1 x10^3/uL (0.0-0.2); BASO % 1 % (0-3); EOS # 0.2 x10^3/uL (0.0-0.7); EOS % 2 % (0-3); HEMATOCRIT 38.4 % (39.0-53.0); HEMOGLOBIN 12.8 g/dL (13.0-17.5); LYMPH # 1.6 x10^3/uL (1.0-4.8); LYMPH % 21 % (24-48); MEAN CORPUSCULAR HEMOGLOBIN 33 pg (25-35); MEAN CORPUSCULAR HGB CONC 33 g/dL (31-37); MEAN CORPUSCULAR VOLUME 99 fL (79-100); MONO # 0.7 x10^3/uL (0.0-1.1); MONO % 9 % (0-9); NEUT % 67 % (31-73); PLATELET COUNT 247 x10^3/uL (140-400); RED BLOOD COUNT 3.87 x10^6/uL (4.30-5.70); RED CELL DISTRIBUTION WIDTH 15.2 % (11.5-14.5); WHITE BLOOD COUNT 7.5 x10^3/uL (4.0-11.0)
[2020-06-24 09:36] LABS: CALCIUM 8.9 mg/dL (8.5-10.1); CREATININE 1.3 mg/dL (0.7-1.3); GFR 67.7; POTASSIUM 4.2 mmol/L (3.5-5.1)
[2020-06-24 09:38] LABS: ALBUMIN 3.7 g/dL (3.4-5.0); ALBUMIN/GLOBULIN RATIO 0.9 (1.0-1.7); TOTAL BILIRUBIN 0.4 mg/dL (0.2-1.0); TOTAL PROTEIN 7.6 g/dL (6.4-8.2)
[2020-06-26 16:09] LABS: PSA FREE <0.02 ng/mL; PSA TOTAL <0.1 ng/mL (0.0-4.0)
== END ==
LOC: ONCLAB 08:53
PROVIDERS: ATTEND Internal Medicine Hematology & Oncology
DX: C61 Malignant neoplasm of prostate (principal)
CPT/HCPCS: 36415; 80053; 84153; 84154; 85025

== ENCOUNTER → 2020-08-20 | Outpatient (CLI) | payer OTHER, MEDICARE ==
[2020-03-27 14:46] VITALS: BP 120/72
== END ==
LOC: LAB 11:30
PROVIDERS: ATTEND Orthopaedic Surgery
DX: Z01.812 Encounter for preprocedural laboratory examination (principal); Z20.822 Contact with and (suspected) exposure to COVID-19
CPT/HCPCS: U0003; U0005

== ENCOUNTER 2020-09-03 07:29 | Day surgery (SDC) | payer OTHER, MEDICARE ==
[~2020-09-03] VITALS: Ht 175.3 cm; Wt 152.0 kg
[~2020-09-03 07:29] MED LIST changes: +IV RINGERS,LACTATED 1000ML 1,000 ML IV SCH; +PROCHLORPERAZINE 10 MG/2 ML VIAL. IVP PRN; +ceFAZolin SODIUM 3 GM in IV DEXTROSE 5% 100ML 100 ML IV PRN; +fentaNYL PF VIAL 100 MCG/2 ML VIAL IVP PRN
[2020-09-03 08:04] VITALS: BP 137/77
[2020-09-03] MEDS ORDERED: BUPIVACAINE MPF 0.25% 30 ML VIAL. ONE (08:22)
[2020-09-03] MEDS ORDERED: PROPOFOL 10 MG/ML (20ML) VIAL. IV ONE (08:23)
[2020-09-03] MEDS ORDERED: LIDOCAINE 2% PF 5 ML VIAL. ONE (08:23)
[2020-09-03] MEDS ORDERED: fentaNYL PF VIAL 100 MCG/2 ML VIAL ONE ×2 (08:23→10:18)
[2020-09-03] MEDS ORDERED: ONDANSETRON PF 4 MG/2 ML VIAL. ONE (09:18)
[2020-09-03] MEDS ORDERED: SEVOFLURANE 31 TO 60 MINUTES. IH ONE (09:18)
[2020-09-03] MEDS ORDERED: HYDR-2761 PO (09:32)
--- NOTE | 2020-09-03 09:34 | DISCH ---
DISCHARGE INSTRUCTIONS Condition on Discharge Condition on Discharge: Stable Activity After Discharge Activity Instructions for Disc: Other, see below (Fine motor use with operative hand only, avoid hard grasping or pressure on the base of the palm, eating writing typing and related activities are okay) Bathing Instructions: Shower-keep dressing dry Lifting Instructions after Dis: No heavy lifting Exercise Instruction after Dis: Progress as tolerated Driving Instructions after Dis: Do not drive Weight Bearing Status after Di: No restrictions Diet after Discharge Diet after Discharge: Regular Wound Incision Care Wound/Incision Care: Ice to area for comfort, Do not change dressing (Keep dressing on unless soiled, keep dry in shower and elevate or ice as necessary) Wound Care Equipment: Dressings Checks after Discharge Checks after discharge: Check your Temp as needed Contacting the DRKathryn after DC Call your doctor for: Concerns you may have Follow-Up Follow up with: Dr. Coleman or Julien 10 days Treatment/Equipment after DC Adaptive Equipment Issued: Front wheeled walker RAFAEL COLEMAN MD September 03, 2020 09:34
[2020-09-03] MEDS ORDERED: HYDROcodone/APAP 5/325MG 1 TAB TABLET PO ONE (10:00)
[2020-09-03] MEDS ORDERED: PROCHLORPERAZINE 10 MG/2 ML VIAL. ONE (10:18)
[2020-09-03] MEDS: fentaNYL PF VIAL 100 MCG/2 ML VIAL IVP PRN ×2 (10:20→10:34)
[2020-09-03 10:32] VITALS: BP 105/61
--- NOTE | 2020-09-03 15:28 | PDOC4 ---
Operative Note Operative Note Date of surgery: 09/03/2020 Preoperative diagnosis: Left carpal tunnel syndrome Postoperative diagnosis: Same with fairly severe median nerve compression Operative procedure: Left carpal tunnel release Surgeon: [place] Anesthesia: General Estimated blood loss: 5 cc Complications: None Operative indications: Please see my preoperative orthopedic clinic note for detailed operative indications and note that we covered that this procedure only takes pressure off the compressed nerve and relief may be incomplete as it is dependent on healing. There is also possibility of nerve or blood vessel damage infection medical or other anesthetic complications among others. He agrees to proceed with surgical evaluation and treatment Operative text: Patient was identified procedure verified patient placed in the supine position on the operating table. After adequate amounts of general anesthesia were administered the left upper extremity was prepped and draped in standard sterile fashion with an upper arm tourniquet. After timeout was performed patient procedure identified and verified the left upper extremity was exsanguinated by Esmarch bandage tourniquet inflated to 300 mmHg and a longitudinal incision was made just distal to the distal wrist crease dissection carried out down to the transverse carpal ligament which was divided under direct vision with scalpel and tenotomy scissors. Full release was verified both visually and palpably. Thorough irrigation carried out normal saline solution, incision was closed with nylon suture in vertical mattress fashion. Sterile soft dressings were applied patient was returned to recovery room stable condition having tolerated procedure well. Fingers were noted be warm pink on deflation of the tourniquet RAFAEL ESTRELLA MD September 03, 2020 15:28
== END 2020-09-03 11:05 | disposition home or self-care (01) ==
LOC: SURG 07:29
PROVIDERS: ATTEND Orthopaedic Surgery
DX: G56.02 Carpal tunnel syndrome, left upper limb (principal); I10 Essential (primary) hypertension; E78.00 Pure hypercholesterolemia, unspecified; E66.9 Obesity, unspecified; M19.90 Unspecified osteoarthritis, unspecified site; G47.30 Sleep apnea, unspecified; Z87.891 Personal history of nicotine dependence; Z79.899 Other long term (current) drug therapy; Z98.890 Other specified postprocedural states; Z88.6 Allergy status to analgesic agent; Z72.89 Other problems related to lifestyle; Z82.49 Family history of ischemic heart disease and other diseases of the circulatory system
CPT/HCPCS: 64721; A4930; A6402; J0780; J2405; J2704; J3010; J3490; A4657; A6452

== ENCOUNTER → 2020-11-15 | Outpatient (CLI) | payer OTHER, MEDICARE ==
[~2020-11-15] MED LIST changes: +HYDR-2761 PO; -IV RINGERS,LACTATED 1000ML 1,000 ML IV SCH; -PROCHLORPERAZINE 10 MG/2 ML VIAL. IVP PRN; -ceFAZolin SODIUM 3 GM in IV DEXTROSE 5% 100ML 100 ML IV PRN; -fentaNYL PF VIAL 100 MCG/2 ML VIAL IVP PRN
--- NOTE | 2020-11-16 13:04 | SLEEP ---
DATE OF STUDY: 11/15/2020 SLEEP STUDY ATTENDING PHYSICIAN: Rufus Stiles MD The patient is a 65-year-old who weighs 345 pounds with a BMI of 47. The patient's [place] score was 12. The patient underwent a split night study performed at [facility]. During the night study, the patient spent 497 minutes in bed and slept for 459 minutes with a sleep efficiency of 92%. Sleep latency was 35 minutes with a REM latency of 130 minutes. Sleep architecture showed increased stage 1 sleep, normal stage 2 sleep, absent slow wave and normal REM sleep. During the initial diagnostic portion of the study, the patient slept for 134 minutes. During that time, there were 109 obstructive apneas, 32 hypopneas, 19 mixed apneas and 6 central apneas. The patient's AHI was 74 per hour, supine AHI of 62 per hour and REM AHI of 102 per hour. EKG monitoring revealed normal sinus rhythm, no arrhythmias observed. Average heart rate 68 beats per minute. Nocturnal oximetry study revealed a mean oxygen saturation of 92%, the lowest of 70%. 11% of time oxygen saturation remained between 80 and 89%. No PLMs were observed. The patient met the criteria for CPAP initiation. It was started at 5 cm water and titrated up to 16 cm water. Most of the obstructive events and hypopneas were all resolved on 16 cm water, but there were treatment emergent central apneas from mask leak. The patient slept for 113 minutes at the final pressure. The patient had supine as well as REM sleep. The patient's AHI was 24 per hour from central apneas. Oxygen saturation remained above 90%. The patient used medium size nasal pillows. IMPRESSION: 1. Severe obstructive sleep apnea at an AHI of 74 per hour. 2. Nocturnal hypoxia secondary to obstructive sleep apnea, but resolved with CPAP. 3. No clinically significant periodic limb movements. RECOMMENDATIONS: 1. CPAP at 16 cm water should be used on a nightly basis. There were central apneas at this pressure resulting from mask leak. The patient should wear a properly fitted mask with chin strap. 2. Follow up in 4-6 weeks to assess compliance and to document clinical improvement. In addition, the patient should have a download data to make sure central apneas have improved. 3. Avoid [employer] depressants. 4. Cautioned regarding driving until symptoms of sleep apnea resolve with above recommendation. 5. The patient used medium sized nasal pillows with chin strap. MATTIE/MARTINA DR: Duane TID: [id number]
== END ==
LOC: SLPLAB 19:10
PROVIDERS: ATTEND Family Medicine
DX: G47.33 Obstructive sleep apnea (adult) (pediatric) (principal)
CPT/HCPCS: 95810

== ENCOUNTER → 2020-12-27 | Outpatient (CLI) | payer OTHER, MEDICARE ==
[2020-12-27 08:44] LABS: BASO # 0.1 x10^3/uL (0.0-0.2); BASO % 1 % (0-3); EOS # 0.1 x10^3/uL (0.0-0.7); EOS % 2 % (0-3); HEMOGLOBIN 11.3 g/dL (13.0-17.5); LYMPH # 1.4 x10^3/uL (1.0-4.8); LYMPH % 20 % (24-48); MEAN CORPUSCULAR HEMOGLOBIN 34 pg (25-35); MEAN CORPUSCULAR HGB CONC 33 g/dL (31-37); MEAN CORPUSCULAR VOLUME 101 fL (79-100); MONO # 0.7 x10^3/uL (0.0-1.1); MONO % 10 % (0-9); NEUT # 4.5 x10^3/uL (1.8-7.7); NEUT % 67 % (31-73); PLATELET COUNT 257 x10^3/uL (140-400); RED BLOOD COUNT 3.36 x10^6/uL (4.30-5.70); RED CELL DISTRIBUTION WIDTH 16.3 % (11.5-14.5); WHITE BLOOD COUNT 6.7 x10^3/uL (4.0-11.0)
[2020-12-27 08:50] LABS: ALBUMIN 3.5 g/dL (3.4-5.0); ALBUMIN/GLOBULIN RATIO 0.9 (1.0-1.7); CALCIUM 8.8 mg/dL (8.5-10.1); CREATININE 1.4 mg/dL (0.7-1.3); GFR 61.9; POTASSIUM 4.2 mmol/L (3.5-5.1); TOTAL BILIRUBIN 0.3 mg/dL (0.2-1.0); TOTAL PROTEIN 7.4 g/dL (6.4-8.2)
[2020-12-28 15:13] LABS: PSA FREE <0.01 ng/mL; PSA TOTAL <0.1 ng/mL (0.0-4.0)
== END ==
LOC: ONCLAB 08:11
PROVIDERS: ATTEND Internal Medicine Hematology & Oncology
DX: C61 Malignant neoplasm of prostate (principal); E55.9 Vitamin D deficiency, unspecified
CPT/HCPCS: 36415; 80053; 82306; 83615; 84153; 84154; 85025

== ENCOUNTER → 2020-12-29 | Outpatient (CLI) | payer OTHER, MEDICARE ==
[~2020-12-29] MED LIST changes: +IOHEXOL 240 MG/ML 50ML VIAL. PO ONE; +IOHEXOL 300 MG/ML 100ML VIAL. IV ONE
--- NOTE | 2020-12-29 16:59 | RAD ---
EXAMINATION: CT chest, abdomen and pelvis without IV contrast. INDICATION:65 years, Male, prostate cancer. Follow-up examination. TECHNIQUE: Axial CT images of the chest, abdomen and pelvis were obtained. Coronal and sagittal refor matted performed. COMPARISON: CT chest dated 03/16/2020. Exposure: One or more of the following individualized dose reduction techniques were utilized for thi s examination: 1. Automated exposure control 2. Adjustment of the mA and/or kV according to patient size 3. Use of iterative reconstruction technique. FINDINGS: CHEST: Visualized thyroid and esophagus are unremarkable. No lymphadenopathy in the chest by size criteria. Normal cardiac size with no pericardial effusion. Moderate coronary artery atherosclerotic calcificat ions. Normal caliber thoracic aorta and pulmonary artery. Central airways are patent. No focal consol idation, pleural effusion or pneumothorax. There is a 2 mm pulmonary nodule in the right upper lobe ( series 2 image 26), unchanged. No suspicious pulmonary nodule. ABDOMEN/PELVIS: Within the limitation of noncontrast exam, Mild hepatomegaly with diffuse steatosis which limits evaluation to detect hypodense lesions. Focal f at sparing area adjacent to the gallbladder. Gallbladder, biliary ducts and pancreas are unremarkable . Atrophic spleen. No adrenal nodule. No hydronephrosis or nephrolithiasis in either kidney. No bowel obstruction or wall thickening. Normal appendix. Mild aortoiliac atherosclerotic calcifications with out dilatation. No pneumoperitoneum or ascites. No abdominopelvic lymphadenopathy by size criteria. U nremarkable urinary bladder. Prostatectomy. No discrete soft tissue mass in the surgical bed to sugg est local tumor recurrence. MUSCULOSKELETAL: No suspicious osseous lesion or acute process. Posterior hardware fusion and disc spacers in lumbosac ral spine with laminectomy changes. Multilevel degenerative changes in thoracolumbar spine. Postsurgi nae changes along the anterior abdominal wall. Small fat-containing right inguinal hernia. IMPRESSION: 1. No local tumor recurrence or metastatic disease to the chest, abdomen or pelvis, within the limit ation of noncontrast exam. 2. Mild hepatomegaly with diffuse steatosis. Electronically signed by: Cesar West MD (12/29/2020 4:57 PM) [facility]
== END ==
LOC: CT 10:33
PROVIDERS: ATTEND Physician Assistant
DX: C61 Malignant neoplasm of prostate (principal); K76.0 Fatty (change of) liver, not elsewhere classified; I25.10 Atherosclerotic heart disease of native coronary artery without angina pectoris; D73.0 Hyposplenism; I70.0 Atherosclerosis of aorta; I70.8 Atherosclerosis of other arteries; K40.90 Unilateral inguinal hernia, without obstruction or gangrene, not specified as recurrent
CPT/HCPCS: 71250; 74176

== ENCOUNTER → 2021-01-11 | Outpatient (CLI) | payer OTHER, MEDICARE ==
[~2021-01-11] MED LIST changes: -IOHEXOL 240 MG/ML 50ML VIAL. PO ONE; -IOHEXOL 300 MG/ML 100ML VIAL. IV ONE
[2021-01-11 11:59] LABS: FREE T4 0.77 ng/dL (0.76-1.46); THYROID STIM HORMONE (TSH) 1.466 uIU/mL (0.358-3.74)
[2021-01-15 16:09] LABS: METHYLMALONIC ACID 260 nmol/L (0-378)
== END ==
LOC: ONCLAB 11:03
PROVIDERS: ATTEND Physician Assistant
DX: C61 Malignant neoplasm of prostate (principal)
CPT/HCPCS: 36415; 82607; 82728; 82746; 83540; 83550; 83921; 84439; 84443

== ENCOUNTER → 2021-01-14 | Outpatient (CLI) | payer OTHER, MEDICARE ==
[2021-01-14 11:07] LABS: FECAL OB PT NEGATIVE (NEG)
[2021-01-14 11:07] LABS: FECAL OB PT NEGATIVE (NEG)
[2021-01-14 11:07] LABS: FECAL OB PT NEGATIVE (NEG)
== END ==
LOC: SPEC 09:43
PROVIDERS: ATTEND Physician Assistant
DX: C61 Malignant neoplasm of prostate (principal)
CPT/HCPCS: 82274

== ENCOUNTER → 2021-01-24 | Outpatient (CLI) | payer OTHER, MEDICARE ==
[2021-01-24 13:18] LABS: CHOLESTEROL/HDL RATIO 6.6
[2021-01-25 03:12] LABS: HEMOGLOBIN A1C 6.2 % (4.8-5.6)
== END ==
LOC: LAB 12:27
PROVIDERS: ATTEND Family Medicine
DX: R73.09 Other abnormal glucose (principal); E78.5 Hyperlipidemia, unspecified
CPT/HCPCS: 36415; 80061; 83036

== ENCOUNTER → 2021-06-28 | Outpatient (CLI) | payer OTHER, MEDICARE ==
[2021-06-28 14:23] LABS: BASO # 0.1 x10^3/uL (0.0-0.2); BASO % 1 % (0-3); EOS # 0.2 x10^3/uL (0.0-0.7); EOS % 3 % (0-3); HEMOGLOBIN 12.2 g/dL (13.0-17.5); LYMPH # 1.7 x10^3/uL (1.0-4.8); LYMPH % 23 % (24-48); MEAN CORPUSCULAR HEMOGLOBIN 33 pg (25-35); MEAN CORPUSCULAR HGB CONC 33 g/dL (31-37); MEAN CORPUSCULAR VOLUME 99 fL (79-100); MONO # 0.8 x10^3/uL (0.0-1.1); MONO % 10 % (0-9); NEUT # 4.7 x10^3/uL (1.8-7.7); NEUT % 63 % (31-73); PLATELET COUNT 284 x10^3/uL (140-400); RED BLOOD COUNT 3.76 x10^6/uL (4.30-5.70); RED CELL DISTRIBUTION WIDTH 15.4 % (11.5-14.5); WHITE BLOOD COUNT 7.5 x10^3/uL (4.0-11.0)
[2021-06-28 14:43] LABS: ALBUMIN 3.8 g/dL (3.4-5.0); CALCIUM 9.5 mg/dL (8.5-10.1); CREATININE 1.4 mg/dL (0.7-1.3); GFR 61.9; POTASSIUM 4.4 mmol/L (3.5-5.1); TOTAL BILIRUBIN 0.3 mg/dL (0.2-1.0); TOTAL PROTEIN 7.8 g/dL (6.4-8.2)
[2021-06-30 13:22] LABS: PSA FREE <0.01 ng/mL; PSA TOTAL <0.1 ng/mL (0.0-4.0)
== END ==
LOC: ONCLAB 13:08
PROVIDERS: ATTEND Internal Medicine Hematology & Oncology
DX: C61 Malignant neoplasm of prostate (principal)
CPT/HCPCS: 36415; 80053; 83615; 84153; 84154; 85025